=== PATIENT | female | born 1940 | race Hispanic/Latino ===

== ENCOUNTER 2017-06-16 14:10 | Inpatient (IN) | payer MEDICARE ==
[2017-06-16 14:10] VITALS: PULSE 58; BMI 33.5
--- NOTE | 2017-06-16 14:58 | ED PDOC ---
Lower Extremity Pain/Injury Time Seen by Provider: 06/16/17 14:17 Chief Complaint (Nursing): Lower Extremity Problem/Injury Chief Complaint (Provider): Left knee pain History Per: Patient History/Exam Limitations: no limitations Onset/Duration Of Symptoms: Persistent Current Symptoms Are (Timing): Still Present Additional Complaint(s): Mirtha Mcmanus is a 77-year-old female with a past medical history of bilateral total knee replacement surgeries, who presents to the emergency department complaining of persistent left knee pain. Patient had surgery to repair a left femur fracture at [place] in March (s/p mechanical fall) and was discharged from rehab a few days ago. Now complaining of continuous pain, not relieved with the dilaudid she was prescribed post-op. Denies any leg swelling, paresthesias, or weakness. PMD: Non-[facility] provider Past Medical History Reviewed: Historical Data, Nursing Documentation, Vital Signs Vital Signs: Last Vital Signs Temp 98.0 F 06/16/17 14:11 Pulse 87 06/16/17 14:11 Resp 16 06/16/17 14:11 BP 160/92 H 06/16/17 14:11 Pulse Ox 99 06/16/17 14:11 - Medical History PMH: Anemia, Anxiety, Atrial Fibrillation, Fractures (left femur s/p fall in March), HTN, Seizures ("mild seizures", takes lamictal) Denies: HIV, Chronic Kidney Disease - Surgical History Surgical History: Cholecystectomy Other surgeries: Left femur surgery 03/2017, Bilateral knee replacement - Family History Family History: States: Unknown Family Hx - Social History Current smoker - smoking cessation education provided: No Alcohol: None Drugs: Denies - Immunization History Hx Tetanus Toxoid Vaccination: No Hx Influenza Vaccination: No Hx Pneumococcal Vaccination: No - Home Medications Home Medications: Ambulatory Orders Medication Instructions Recorded Lorazepam [Ativan] 1 mg PO Q12 PRN 05/18/15 Docusate [Colace] 100 mg PO DAILY PRN 06/25/16 lamoTRIgine [Lamictal] 100 mg PO BID 06/25/16 Aluminum Hydroxide/Magnesium 30 ml PO Q6 PRN #0 udc 07/16/16 [Maalox Plus 30 ml] Amiodarone [Cordarone] 200 mg PO DAILY tab 07/16/16 Dabigatran [Pradaxa] 150 mg PO BID #60 cap 07/16/16 Ketorolac Tromethamine [Toradol] 10 mg PO Q6 PRN #0 tab 07/16/16 Acetaminophen [Tylenol 325mg tab] 650 mg PO Q6 PRN 07/19/16 Bisacodyl [Dulcolax] 10 mg PO DAILY 07/19/16 Magnesium Hydroxide [Milk Of 30 ml PO DAILY PRN 07/19/16 Magnesia] Ondansetron [Zofran Tab] 8 mg PO Q6 PRN 07/19/16 HYDROmorphone [Dilaudid] 2 mg PO Q4H PRN 06/16/17 Omeprazole 20 mg PO DAILY 06/16/17 Nystatin [Nystop Topical Powder] 1 applic TOP TID bottle 06/20/17 cefTRIAXone 1 gm [Rocephin 1 gram 1 gm IVPB DAILY #5 bag 06/20/17 IVPB] - Allergies Allergies/Adverse Reactions: Allergies Allergy/AdvReac Type Severity Reaction Status Date / Time No Known Allergies Allergy Verified 06/16/17 17:59 Review of Systems ROS Statement: Except As Marked, All Systems Reviewed And Found Negative Constitutional: Negative for: Fever, Chills Musculoskeletal: Positive for: Leg Pain (Left knee). Negative for: Other ( swelling) Neurological: Negative for: Weakness, Numbness (or paresthesias) Physical Exam - Reviewed Nursing Documentation Reviewed: Yes Vital Signs Reviewed: Yes - Physical Exam Appears: Positive for: Non-toxic, No Acute Distress Head Exam: Positive for: ATRAUMATIC, NORMOCEPHALIC Skin: Positive for: Normal Color, Warm, Dry Eye Exam: Positive for: EOMI, Normal appearance, PERRL Neck: Positive for: Normal, Painless ROM, Supple Cardiovascular/Chest: Positive for: Regular Rate, Rhythm. Negative for: Murmur Respiratory: Positive for: Normal Breath Sounds. Negative for: Accessory Muscle Use, Respiratory Distress Extremity: Positive for: Other (Chronically appearing large knee. Incisions are clean, dry, and intact. No erythema, induration, or crepitus. Decreased ROM secondary to pain.). Negative for: Normal ROM, Calf Tenderness, Swelling ( lower extremity edema) Neurologic/Psych: Positive for: Alert, Oriented. Negative for: Motor/Sensory Deficits - Laboratory Results Result Diagrams: 06/18/17 05:25 06/18/17 05:25 - ECG O2 Sat by Pulse Oximetry: 99 (RA) Pulse Ox Interpretation: Normal Medical Decision Making Medical Decision Making: Time: 14:39 Initial Impression: Knee pain s/p surgical procedure Initial Plan: * CMP * CBC w/ differential * PTT * Prothrombin time * Morphine 2 mg IV * Zofran 4 mg IV * X-Ray Left Knee * US Duplex lower extremity vein - Left * Reevaluation Time: 15:40 US Duplex LLE vein: Findings: There is normal flow, compressibility, and augmentation of the left common femoral, femoral, and popliteal veins. The left posterior tibial vein appears patent. Impression: No evidence of deep venous thrombosis in the left lower extremity. Time: 16:02 X-Ray Left Knee: FINDINGS: Examination limited by habitus. BONES: Postsurgical changes with intramedullary [place] and screw fixation of an age- indeterminate femoral fracture deformity. Osseous demineralization. Chronic appearing deformity of the proximal tibia. Rotated lateral view limits evaluation. JOINTS: No dislocation. JOINT EFFUSION: No significant joint effusion. OTHER FINDINGS: None. IMPRESSION: Rotated lateral view limits evaluation. Postsurgical changes with intramedullary [place] and screw fixation. Age indeterminate femoral fracture deformity identified; correlate clinically. Osseous demineralization. Chronic appearing deformity of the proximal tibia. Time: 16:03 Patient will be hospitalized for observation at Med/Surg for intractable knee pain. Discussed with Dr. Atif Alegria, who agrees with plan. Will order x-rays of left femur and left hip as well as CXR and EKG. Scribe Attestation: Documented by Alexa Cole, acting as a scribe for Gloria Rivas MD Provider Scribe Attestation: All medical record entries made by the Scribe were at my direction and personally dictated by me. I have reviewed the chart and agree that the record accurately reflects my personal performance of the history, physical exam, medical decision making, and the department course for this patient. I have also personally directed, reviewed, and agree with the discharge instructions and disposition. Disposition - Clinical Impression Clinical Impression: Intractable pain - Patient ED Disposition Is Patient to be Admitted: Yes Counseled Patient/Family Regarding: Studies Performed - Disposition Disposition Time: 16:02 Condition: STABLE - Pt Status Changed To: Hospital Disposition Of: Observation - POA Present On Arrival: None
[2017-06-16 15:17] LABS: BASO % 0.4 % (0.0-2.0); EOS # 0.1 K/uL (0.0-0.7); EOS % 1.4 % (0.0-4.0); HEMOGLOBIN 13.8 g/dL (12.0-16.0); LYMPH # 1.7 K/uL (1.0-4.3); LYMPH % 26.6 % (20.0-40.0); MEAN CELL VOLUME 93.1 fl (81.0-99.0); MEAN CORPUSCULAR HEMOGLOBIN 29.6 pg (27.0-31.0); MEAN CORPUSCULAR HGB CONC 31.8 g/dL (33.0-37.0); MEAN PLATELET VOLUME 8.1 fl (7.2-11.7); MONO # 0.4 K/uL (0.0-0.8); MONO % 6.9 % (0.0-10.0); NEUT % 64.7 % (50.0-75.0); NRBC % 0.3 % (0.0-0.0); RBC 4.66 Mil/uL (3.80-5.20); RED CELL DISTRIBUTION WIDTH 15.2 % (11.5-14.5); WHITE BLOOD COUNT 6.3 K/uL (4.8-10.8)
--- NOTE | 2017-06-16 15:42 | US ---
Left lower extremity Doppler ultrasound. Indication: LLE pain, s/p knee surgery Technique: Duplex ultrasound evaluation of the left lower extremity Comparison: Bilateral lower extremity Doppler ultrasound performed 07/12/16 Findings: There is normal flow, compressibility, and augmentation of the left common femoral, femoral, and popliteal veins. The left posterior tibial vein appears patent. Impression: No evidence of deep venous thrombosis in the left lower extremity.
--- NOTE | 2017-06-16 16:04 | RAD ---
PROCEDURE: Left Knee Radiographs. HISTORY: COMPARISON: Noncontrast left knee radiograph performed 06/08/16 FINDINGS: Examination limited by habitus. BONES: Postsurgical changes with intramedullary [place] and screw fixation of an age-indeterminate femoral fracture deformity. Osseous demineralization. Chronic appearing deformity of the proximal tibia. Rotated lateral view limits evaluation. JOINTS: No dislocation. JOINT EFFUSION: No significant joint effusion. OTHER FINDINGS: None. IMPRESSION: Rotated lateral view limits evaluation. Postsurgical changes with intramedullary [place] and screw fixation. Age indeterminate femoral fracture deformity identified; correlate clinically. Osseous demineralization. Chronic appearing deformity of the proximal tibia.
[2017-06-16 17:03] LABS: INR 1.5 (0.9-1.2); PARTIAL THROMBOPLASTIN TIME 56.8 Seconds (25.6-37.1)
[2017-06-16 17:10] LABS: ALB/GLOB RATIO 0.9 (1.0-2.1); ALBUMIN 3.7 g/dL (3.5-5.0); ALT/SGPT 39 U/L (9-52); AST/SGOT 25 U/L (14-36); BLOOD UREA NITROGEN 14 mg/dl (7-17); GFR AFRICAN-AMERICAN > 60; GFR NON-AFRICAN AMERICAN 54
[2017-06-16] MEDS: Sodium Chloride 0.9% 1,000 ML IV SCH (22:24)
[2017-06-16] MEDS: Docusate-Senna 50 mg-8.6 mg Tab PO SCH (22:27)
--- NOTE | 2017-06-17 01:59 | CP.PCM.HP ---
Past Patient History - Infectious Disease Hx of Infectious Diseases: None - Past Medical History & Family History Past Medical History?: Yes - Past Social History Smoking Status: Never Smoked - CARDIAC Hx Cardiac Disorders: Yes Hx Cardia Arrhythmia: Yes Hx Hypercholesterolemia: Yes Hx Hypertension: Yes - PULMONARY Hx Respiratory Disorders: No - NEUROLOGICAL Hx Neurological Disorder: Yes Hx Seizures: Yes - HEENT Hx HEENT Problems: No - RENAL Hx Chronic Kidney Disease: No - ENDOCRINE/METABOLIC Hx Endocrine Disorders: No - HEMATOLOGICAL/ONCOLOGICAL Hx Anemia: Yes Hx Human Immunodeficiency Virus (HIV): No - INTEGUMENTARY Hx Dermatological Problems: No - MUSCULOSKELETAL/RHEUMATOLOGICAL Hx Falls: Yes - GASTROINTESTINAL Hx Gastrointestinal Disorders: No - GENITOURINARY/GYNECOLOGICAL Hx Genitourinary Disorders: No - PSYCHIATRIC Hx Anxiety: Yes Hx Substance Use: No - SURGICAL HISTORY Hx Cholecystectomy: Yes - ANESTHESIA Hx Anesthesia: Yes Hx Anesthesia Reactions: No Hx Malignant Hyperthermia: No Meds Allergies/Adverse Reactions: Allergies Allergy/AdvReac Type Severity Reaction Status Date / Time No Known Allergies Allergy Verified 06/16/17 17:59 Results - Vital Signs Recent Vital Signs: Last Vital Signs Temp 97.8 F 06/16/17 23:37 Pulse 60 06/16/17 23:37 Resp 18 06/16/17 23:37 BP 135/67 06/16/17 23:37 Pulse Ox 96 06/16/17 23:37 - Labs Result Diagrams: 06/16/17 15:13 06/16/17 16:30 Labs: Laboratory Results - last 24 hr 06/16/17 06/16/17 06/16/17 15:13 16:30 16:30 WBC 6.3 RBC 4.66 Hgb 13.8 D Hct 43.3 MCV 93.1 D MCH 29.6 MCHC 31.8 L RDW 15.2 H Plt Count 166 MPV 8.1 Neut % (Auto) 64.7 Lymph % (Auto) 26.6 [place] % (Auto) 6.9 Eos % (Auto) 1.4 Baso % (Auto) 0.4 Neut # 4.0 Lymph # 1.7 [place] # 0.4 Eos # 0.1 Baso # 0.0 PT 17.0 H INR 1.5 H APTT 56.8 H Sodium 144 Potassium 3.9 Chloride 106 Carbon Dioxide 28 Anion Gap 14 BUN 14 Creatinine 1.0 Est GFR ( Amer) > 60 Est GFR (Non-Af Amer) 54 Random Glucose 85 Calcium 9.0 Total Bilirubin 0.5 AST 25 ALT 39 Alkaline Phosphatase 95 Total Protein 7.7 Albumin 3.7 Globulin 4.0 H Albumin/Globulin Ratio 0.9 L
[2017-06-17] MEDS: Pantoprazole 40 mg EC Tab PO SCH (08:37)
[2017-06-17] MEDS: Sodium Chloride 0.9% 1,000 ML IV SCH (09:12)
--- NOTE | 2017-06-17 09:16 | CP.PCM.CON ---
History of Present Illness - History of Present Illness History of Present Illness: orthopedic consultation Dr. Oconnor 77F complains of left leg pain after IM nailing left femur for fracture 03/2017 in [facility]. She was released from rehab a few days ago, and is still having a lot of pain and difficulty walking due to left leg pain. She says she has pain in her right knee now as well (s/p revision TKR 06/2016). Denies recent trauma/falls, says she is unable to get around She lives with 2 sons, has 3 steps into home. Review of Systems - Constitutional Additional comments: no fever/chills - Cardiovascular Additional comments: denies CP/SOB - Respiratory Additional comments: no SOB - Musculoskeletal Musculoskeletal: As Per HPI - Integumentary Additional comments: no drainage from wounds - Neurological Additional comments: denies numbness/tingling - Hematologic/Lymphatic Hematologic: absent: As Per HPI, Easy Bleeding, Easy Bruising, Lymphadenopathy, Other Past Patient History - Infectious Disease Hx of Infectious Diseases: None - Past Medical History & Family History Past Medical History?: Yes - Past Social History Smoking Status: Never Smoked - CARDIAC Hx Cardiac Disorders: Yes Hx Cardia Arrhythmia: Yes Hx Hypercholesterolemia: Yes Hx Hypertension: Yes - PULMONARY Hx Respiratory Disorders: No - NEUROLOGICAL Hx Neurological Disorder: Yes Hx Seizures: Yes - HEENT Hx HEENT Problems: No - RENAL Hx Chronic Kidney Disease: No - ENDOCRINE/METABOLIC Hx Endocrine Disorders: No - HEMATOLOGICAL/ONCOLOGICAL Hx Anemia: Yes Hx Human Immunodeficiency Virus (HIV): No - INTEGUMENTARY Hx Dermatological Problems: No - MUSCULOSKELETAL/RHEUMATOLOGICAL Hx Falls: Yes - GASTROINTESTINAL Hx Gastrointestinal Disorders: No - GENITOURINARY/GYNECOLOGICAL Hx Genitourinary Disorders: No - PSYCHIATRIC Hx Anxiety: Yes Hx Substance Use: No - SURGICAL HISTORY Hx Cholecystectomy: Yes - ANESTHESIA Hx Anesthesia: Yes Hx Anesthesia Reactions: No Hx Malignant Hyperthermia: No Meds Allergies/Adverse Reactions: Allergies Allergy/AdvReac Type Severity Reaction Status Date / Time No Known Allergies Allergy Verified 06/16/17 17:59 - Medications Medications: Current Medications Amiodarone HCl (Cordarone) 200 mg PO DAILY [facility] Last Admin: 06/17/17 08:36 Dose: 200 mg Dabigatran (Pradaxa) 150 mg PO BID [facility] PRN Reason: Protocol Last Admin: 06/17/17 08:36 Dose: 150 mg Hydromorphone HCl (Dilaudid) 1 mg IVP Q4 PRN PRN Reason: Pain, severe (8-10) Sodium Chloride (Sodium Chloride 0.9%) 1,000 mls @ 100 mls/hr IV .Q10H [facility] Stop: 06/17/17 21:52 Last Admin: 06/17/17 09:12 Dose: 100 mls/hr Ketorolac Tromethamine (Toradol) 15 mg IVP Q6 PRN PRN Reason: Pain, moderate (4-7) Last Admin: 06/17/17 06:27 Dose: 15 mg Lamotrigine (Lamictal) 100 mg PO BID [facility] Last Admin: 06/17/17 08:36 Dose: 100 mg Lorazepam (Ativan) 1 mg PO HS PRN PRN Reason: Anxiety Pantoprazole Sodium (Protonix Ec Tab) 40 mg PO DAILY [facility] Last Admin: 06/17/17 08:37 Dose: 40 mg Senna/Docusate Sodium (Senokot S 50 Mg-8.6 Mg) 2 tab PO HS [facility] Last Admin: 06/16/17 22:27 Dose: 2 tab Physical Exam - Constitutional Appears: Well, No Acute Distress - Head Exam Head Exam: ATRAUMATIC - Expanded Lower Extremities Exam Left Upper Leg exam: normal inspection (generalized TTP to thigh, knee ROM 0-50 degrees then complains of some pain, sensation intact, calves soft NT neg homans Bilaterally) Knee exam: normal inspection (R knee: ROM 4-100, able to extend passively to 0. sensation intact, no erythema, non tender, no effusion, incision well healed) Ankle exam: FULL ROM - Neurological Exam Neurological exam: Alert - Psychiatric Exam Psychiatric exam: Normal Affect, Normal Mood - Skin Skin Exam: Dry, Intact, Normal Color, Warm Additional comments: incision sites to LLE all dry, well healed, no erythema R TKR incision well healed Results - Vital Signs Recent Vital Signs: Last Vital Signs Temp 97.8 F 06/17/17 07:51 Pulse 80 06/17/17 08:36 Resp 20 06/17/17 07:51 BP 148/63 06/17/17 08:36 Pulse Ox 98 06/17/17 07:51 - Labs Result Diagrams: 06/16/17 15:13 06/16/17 16:30 Labs: Laboratory Results - last 24 hr 06/16/17 06/16/17 06/16/17 15:13 16:30 16:30 WBC 6.3 RBC 4.66 Hgb 13.8 D Hct 43.3 MCV 93.1 D MCH 29.6 MCHC 31.8 L RDW 15.2 H Plt Count 166 MPV 8.1 Neut % (Auto) 64.7 Lymph % (Auto) 26.6 [place] % (Auto) 6.9 Eos % (Auto) 1.4 Baso % (Auto) 0.4 Neut # 4.0 Lymph # 1.7 [place] # 0.4 Eos # 0.1 Baso # 0.0 PT 17.0 H INR 1.5 H APTT 56.8 H Sodium 144 Potassium 3.9 Chloride 106 Carbon Dioxide 28 Anion Gap 14 BUN 14 Creatinine 1.0 Est GFR ( Amer) > 60 Est GFR (Non-Af Amer) 54 Random Glucose 85 Calcium 9.0 Total Bilirubin 0.5 AST 25 ALT 39 Alkaline Phosphatase 95 Total Protein 7.7 Albumin 3.7 Globulin 4.0 H Albumin/Globulin Ratio 0.9 L Assessment & Plan (1) Status post closed fracture of left femur Assessment and Plan: 2 months s/p left femoral shaft fx IM nailing -knee immob, TTWB per Dr. oconnor -ct scan left femur -f/u xrays right knee -PT/OT -VTE proph, on pradaxa -d/c planning -d/w Dr. Oconnor, will review imaging Status: Acute
--- NOTE | 2017-06-17 10:46 | CARD ---
APPROVED REPORT EKG Measurement Heart [id number] <Conclusion> Normal sinus rhythm Right bundle branch block Abnormal ECG
--- NOTE | 2017-06-17 11:57 | RAD ---
PROCEDURE: CHEST RADIOGRAPH, 1 VIEW HISTORY: Admission COMPARISON: 07/19/2016 FINDINGS: LUNGS: Clear. PLEURA: No pneumothorax or pleural fluid seen. CARDIOVASCULAR: Large hiatal hernia. Mild cardiomegaly. No congestive change. OSSEOUS STRUCTURES: No significant abnormalities. VISUALIZED UPPER ABDOMEN: Normal. OTHER FINDINGS: None. IMPRESSION: No acute infiltrate. Hiatal hernia. Cardiomegaly.
--- NOTE | 2017-06-17 13:55 | RAD ---
PROCEDURE: Left hip HISTORY: Knee pain COMPARISON: None TECHNIQUE: Standard protocol for this study/examination. FINDINGS: Satisfactory position alignment of intramedullary [place] left femur incompletely visualize. Preserved femoral acetabular relationship. No acute findings IMPRESSION: No acute findings related to/accounting for the clinical presentation.
--- NOTE | 2017-06-17 14:03 | RAD ---
PROCEDURE: Left Femur Radiographs. HISTORY: Knee pain COMPARISON: None. TECHNIQUE: AP and Lateral Radiographs of the left femur. FINDINGS: FEMUR: Status post ORIF oblique distal femoral fracture. Intramedullary [place]. Near anatomic alignment. SOFT TISSUES: Normal. OTHER FINDINGS: None. IMPRESSION: ORIF oblique comminuted distal left femoral fracture.
--- NOTE | 2017-06-17 14:08 | RAD ---
PROCEDURE: Right Knee Radiographs. HISTORY: s/p TKR COMPARISON: 07/03/2016 FINDINGS: BONES: status post right TKR. No evidence of prosthesis loosening. No osseous fracture. Prosthesis grossly intact. JOINTS: As above JOINT EFFUSION: None. OTHER FINDINGS: None. IMPRESSION: Status post right TKR appear
--- NOTE | 2017-06-17 15:29 | CT ---
PROCEDURE: CT left lower extremity HISTORY: left femoral shaft fracture COMPARISON: Not available TECHNIQUE: 2.5 mm contiguous axial sections were acquired through the left femur, from the hip through the knee. Sagittal and coronal images were reformatted from the axial scan. FINDINGS: The patient is status post placement of an intramedullary [place] in the left femur. This is fixed proximally and distally with transverse screws. There is subacute comminuted fracture of the mid to distal left femoral diaphysis. There is minimal callus seen about this fracture. There is no involvement of any articular surface. There is tricompartmental osteoarthritis of the left knee. There are no articular erosions seen. There is no soft tissue mass or fluid collection. IMPRESSION: Subacute oblique comminuted left femoral fracture, status post internal fixation with intramedullary [place] and transverse screws. Minimal callus is seen about the fracture.
[2017-06-17] MEDS: Docusate-Senna 50 mg-8.6 mg Tab PO SCH (22:04)
--- NOTE | 2017-06-18 01:08 | CP.PCM.PN ---
Subjective - Date & Time of Evaluation Date of Evaluation: 06/17/17 Time of Evaluation: 20:30 Objective - Vital Signs/Intake and Output Vital Signs (last 24 hours): Temp Pulse Resp BP Pulse Ox 97.7 F 55 L 18 120/59 L 95 06/17/17 23:35 06/17/17 23:35 06/17/17 23:35 06/17/17 23:35 06/17/17 23:35 - Medications Medications: Current Medications Amiodarone HCl (Cordarone) 200 mg PO DAILY [facility] Last Admin: 06/17/17 08:36 Dose: 200 mg Dabigatran (Pradaxa) 150 mg PO BID [facility] PRN Reason: Protocol Last Admin: 06/17/17 16:14 Dose: 150 mg Hydromorphone HCl (Dilaudid) 1 mg IVP Q4 PRN PRN Reason: Pain, severe (8-10) Ketorolac Tromethamine (Toradol) 15 mg IVP Q6 PRN PRN Reason: Pain, moderate (4-7) Last Admin: 06/17/17 13:06 Dose: 15 mg Lamotrigine (Lamictal) 100 mg PO BID [facility] Last Admin: 06/17/17 16:13 Dose: 100 mg Lorazepam (Ativan) 1 mg PO HS PRN PRN Reason: Anxiety Nystatin (Nystop Topical Powder) 1 applic TOP TID [facility] Last Admin: 06/17/17 18:26 Dose: 1 appl Pantoprazole Sodium (Protonix Ec Tab) 40 mg PO DAILY [facility] Last Admin: 06/17/17 08:37 Dose: 40 mg Senna/Docusate Sodium (Senokot S 50 Mg-8.6 Mg) 2 tab PO HS [facility] Last Admin: 06/17/17 22:04 Dose: 2 tab - Labs Labs: 06/16/17 15:13 06/16/17 16:30 PT 17.0 Seconds (9.8-13.1) H 06/16/17 16:30 INR 1.5 (0.9-1.2) H 06/16/17 16:30 APTT 56.8 Seconds (25.6-37.1) H 06/16/17 16:30
[2017-06-18 04:42] LABS: SQUAMOUS EPITHIAL 3 /hpf (0-5); URINE BACTERIA OCC (<OCC); URINE BILIRUBIN NEGATIVE (NEGATIVE); URINE BLOOD MODERATE (NEGATIVE); URINE CLARITY CLOUDY (Clear); URINE COLOR YELLOW (YELLOW); URINE GLUCOSE (UA) NEG (Normal); URINE LEUKOCYTE ESTERASE LARGE Leu/uL (Negative); URINE NITRATE POSITIVE (NEGATIVE); URINE PROTEIN 30 mg/dL (NEGATIVE); URINE UROBILINOGEN 0.2-1.0 mg/dL (0.2-1.0)
[2017-06-18 07:44] LABS: BLOOD UREA NITROGEN 13 mg/dl (7-17); CALCIUM 8.4 mg/dL (8.4-10.2); GFR AFRICAN-AMERICAN > 60; GFR NON-AFRICAN AMERICAN > 60
[2017-06-18 07:52] LABS: MEAN CELL VOLUME 90.9 fl (81.0-99.0); MEAN CORPUSCULAR HEMOGLOBIN 29.8 pg (27.0-31.0); MEAN CORPUSCULAR HGB CONC 32.7 g/dL (33.0-37.0); RBC 3.95 Mil/uL (3.80-5.20); RED CELL DISTRIBUTION WIDTH 14.8 % (11.5-14.5); WHITE BLOOD COUNT 3.6 K/uL (4.8-10.8)
[2017-06-18 08:05] LABS: HEMOGLOBIN 11.8 g/dL (12.0-16.0)
[2017-06-18] MEDS: Pantoprazole 40 mg EC Tab PO SCH (08:51)
--- NOTE | 2017-06-18 10:19 | CP.PCM.PN ---
Subjective - Date & Time of Evaluation Date of Evaluation: 06/18/17 Time of Evaluation: 09:30 - Subjective Subjective: Patient still complaining of left leg and knee pain. No new complaints. Review of Systems - Review of Systems All systems: reviewed and no additional remarkable complaints except - Cardiovascular Cardiovascular: UNREMARKABLE - Respiratory Respiratory: UNREMARKABLE - Gastrointestinal Gastrointestinal: UNREMARKABLE - Musculoskeletal Musculoskeletal: As Par HPI - Neurological Neurological: As Per HPI Objective - Vital Signs/Intake and Output Vital Signs (last 24 hours): Temp Pulse Resp BP Pulse Ox 97.8 F 65 20 126/56 L 95 06/18/17 07:43 06/18/17 07:43 06/18/17 07:43 06/18/17 08:51 06/18/17 07:43 - Medications Medications: Current Medications Amiodarone HCl (Cordarone) 200 mg PO DAILY [facility] Last Admin: 06/18/17 08:51 Dose: 200 mg Dabigatran (Pradaxa) 150 mg PO BID [facility] PRN Reason: Protocol Last Admin: 06/18/17 08:50 Dose: 150 mg Hydromorphone HCl (Dilaudid) 1 mg IVP Q4 PRN PRN Reason: Pain, severe (8-10) Last Admin: 06/18/17 02:01 Dose: 1 mg Ceftriaxone Sodium 1 gm/ (Sodium Chloride) 100 mls @ 100 mls/hr IVPB DAILY [facility] PRN Reason: Protocol Last Admin: 06/18/17 09:48 Dose: 100 mls/hr Ketorolac Tromethamine (Toradol) 15 mg IVP Q6 PRN PRN Reason: Pain, moderate (4-7) Last Admin: 06/17/17 13:06 Dose: 15 mg Lamotrigine (Lamictal) 100 mg PO BID [facility] Last Admin: 06/18/17 08:50 Dose: 100 mg Lorazepam (Ativan) 1 mg PO HS PRN PRN Reason: Anxiety Nystatin (Nystop Topical Powder) 1 applic TOP TID [facility] Last Admin: 06/18/17 08:53 Dose: 1 appl Pantoprazole Sodium (Protonix Ec Tab) 40 mg PO DAILY [facility] Last Admin: 06/18/17 08:51 Dose: 40 mg Senna/Docusate Sodium (Senokot S 50 Mg-8.6 Mg) 2 tab PO HS [facility] Last Admin: 06/17/17 22:04 Dose: 2 tab - Labs Labs: 06/18/17 05:25 06/18/17 05:25 PT 17.0 Seconds (9.8-13.1) H 06/16/17 16:30 INR 1.5 (0.9-1.2) H 06/16/17 16:30 APTT 56.8 Seconds (25.6-37.1) H 06/16/17 16:30 - Constitutional Appears: Well, No Acute Distress - Head Exam Head Exam: ATRAUMATIC - Respiratory Exam Respiratory Exam: NORMAL BREATHING PATTERN - Extremities Exam Additional comments: calves soft NT neg homans - Neurological Exam Neurological Exam: Alert, Awake, Oriented x3 Neuro motor strength exam: Left Lower Extremity: 4 (+ROM ankle/toes,s ensation intct) - Psychiatric Exam Psychiatric exam: Normal Affect, Normal Mood - Skin Skin Exam: Dry, Intact, Normal Color, Warm Assessment and Plan (1) Status post closed fracture of left femur Assessment & Plan: 2 months s/p left femoral IM nail -only small amount of callus noted at this point -patient last saw surgeon from [place] just prior to d/c from rehab -patient has exhausted rehab benefit and must be discharged home -case d/w Dr. Oconnor, knee immobilizer, limit WB to LLE at this time -willl continue to monitor healing, advised patient that if fracture does not heal she may need additional surgery. Patient refuses any additional surgery at this time. -advised patient to f/u with surgeon from [place], as well as Dr. Oconnor -d/w Dr. Oconnor, agrees with above -patient to benefit from continued PT/OT at home, or as outpt if benefits do not allow Status: Acute Radiology Interpretation - Radiology Interpretation #2 Interpretation: atient Name / ID : YEMI MEYER / [id number] Exam Date : 06/17/2017 14:49:02 ( Approved ) Study Comment : Sex / Age : F / 77Y Creator : Shlomo Park MD Dictator : Shlomo Park MD Rehab Assistant : Slip Injector And Applicator : Shlomo Park MD Approver2 : Report Date : 06/17/2017 15:23:30 My Comment : PROCEDURE: CT left lower extremity HISTORY: left femoral shaft fracture COMPARISON: Not available TECHNIQUE: 2.5 mm contiguous axial sections were acquired through the left femur, from the hip through the knee. Sagittal and coronal images were reformatted from the axial scan. FINDINGS: The patient is status post placement of an intramedullary [place] in the left femur. This is fixed proximally and distally with transverse screws. There is subacute comminuted fracture of the mid to distal left femoral diaphysis. There is minimal callus seen about this fracture. There is no involvement of any articular surface. There is tricompartmental osteoarthritis of the left knee. There are no articular erosions seen. There is no soft tissue mass or fluid collection. IMPRESSION: Subacute oblique comminuted left femoral fracture, status post internal fixation with intramedullary [place] and transverse screws. Minimal callus is seen about the fracture. Patient Name / ID : YEMI MEYER / [id number] Exam Date : 06/17/2017 11:23:24 ( Approved ) Study Comment : Sex / Age : F / 77Y Creator : Shlomo Park MD Dictator : Shlomo Park MD Rehab Assistant : Slip Injector And Applicator : Shlomo Park MD Approver2 : Report Date : 06/17/2017 14:02:48 My Comment : PROCEDURE: Right Knee Radiographs. HISTORY: s/p TKR COMPARISON: 07/03/2016 FINDINGS: BONES: status post right TKR. No evidence of prosthesis loosening. No osseous fracture. Prosthesis grossly intact. JOINTS: As above JOINT EFFUSION: None. OTHER FINDINGS: None. IMPRESSION: Status post right TKR appear atient Name / ID : YEMI Galdamez [id number] Exam Date : 06/16/2017 17:37:57 ( Approved ) Study Comment : Sex / Age : F / 77Y Creator : Shlomo Park MD Dictator : Shlomo Park MD Rehab Assistant : Slip Injector And Applicator : Shlomo Park MD Approver2 : Report Date : 06/17/2017 14:01:28 My Comment : PROCEDURE: Left Femur Radiographs. HISTORY: Knee pain COMPARISON: None. TECHNIQUE: AP and Lateral Radiographs of the left femur. FINDINGS: FEMUR: Status post ORIF oblique distal femoral fracture. Intramedullary [place]. Near anatomic alignment. SOFT TISSUES: Normal. OTHER FINDINGS: None. IMPRESSION: ORIF oblique comminuted distal left femoral fracture. Patient Name / ID : YEMI Galdamez [id number] Exam Date : 06/16/2017 17:35:10 ( Approved ) Study Comment : Sex / Age : F / 77Y Creator : Jose Keller MD Dictator : Jose Keller MD Rehab Assistant : Slip Injector And Applicator : Jose Keller MD Approver2 : Report Date : 06/17/2017 13:53:57 My Comment : PROCEDURE: Left hip HISTORY: Knee pain COMPARISON: None TECHNIQUE: Standard protocol for this study/examination. FINDINGS: Satisfactory position alignment of intramedullary [place] left femur incompletely visualize. Preserved femoral acetabular relationship. No acute findings IMPRESSION: No acute findings related to/accounting for the clinical presentation.
[2017-06-18] MEDS: Docusate-Senna 50 mg-8.6 mg Tab PO SCH (21:03)
--- NOTE | 2017-06-18 22:51 | CP.PCM.PN ---
Subjective - Date & Time of Evaluation Date of Evaluation: 06/18/17 Time of Evaluation: 16:35 Objective - Vital Signs/Intake and Output Vital Signs (last 24 hours): Temp Pulse Resp BP Pulse Ox 98.1 F 53 L 20 117/57 L 95 06/18/17 16:16 06/18/17 16:16 06/18/17 16:16 06/18/17 16:16 06/18/17 16:16 - Medications Medications: Current Medications Amiodarone HCl (Cordarone) 200 mg PO DAILY [facility] Last Admin: 06/18/17 08:51 Dose: 200 mg Dabigatran (Pradaxa) 150 mg PO BID [facility] PRN Reason: Protocol Last Admin: 06/18/17 17:09 Dose: 150 mg Hydromorphone HCl (Dilaudid) 1 mg IVP Q4 PRN PRN Reason: Pain, severe (8-10) Last Admin: 06/18/17 02:01 Dose: 1 mg Ceftriaxone Sodium 1 gm/ (Sodium Chloride) 100 mls @ 100 mls/hr IVPB DAILY [facility] PRN Reason: Protocol Last Admin: 06/18/17 09:48 Dose: 100 mls/hr Ketorolac Tromethamine (Toradol) 15 mg IVP Q6 PRN PRN Reason: Pain, moderate (4-7) Last Admin: 06/17/17 13:06 Dose: 15 mg Lamotrigine (Lamictal) 100 mg PO BID [facility] Last Admin: 06/18/17 17:09 Dose: 100 mg Lorazepam (Ativan) 1 mg PO HS PRN PRN Reason: Anxiety Nystatin (Nystop Topical Powder) 1 applic TOP TID [facility] Last Admin: 06/18/17 17:09 Dose: 1 appl Pantoprazole Sodium (Protonix Ec Tab) 40 mg PO DAILY [facility] Last Admin: 06/18/17 08:51 Dose: 40 mg Senna/Docusate Sodium (Senokot S 50 Mg-8.6 Mg) 2 tab PO HS [facility] Last Admin: 06/18/17 21:03 Dose: 2 tab - Labs Labs: 06/18/17 05:25 06/18/17 05:25 PT 17.0 Seconds (9.8-13.1) H 06/16/17 16:30 INR 1.5 (0.9-1.2) H 06/16/17 16:30 APTT 56.8 Seconds (25.6-37.1) H 06/16/17 16:30
--- NOTE | 2017-06-19 08:44 | CP.PCM.PN ---
Subjective - Date & Time of Evaluation Date of Evaluation: 06/19/17 Time of Evaluation: 08:42 - Subjective Subjective: Patient still complaining of left knee/leg pain. No new complaints. Objective - Vital Signs/Intake and Output Vital Signs (last 24 hours): Temp Pulse Resp BP Pulse Ox 97.4 F L 60 18 155/68 H 94 L 06/19/17 07:56 06/19/17 07:56 06/19/17 07:56 06/19/17 07:56 06/19/17 07:56 - Medications Medications: Current Medications Amiodarone HCl (Cordarone) 200 mg PO DAILY [facility] Last Admin: 06/18/17 08:51 Dose: 200 mg Dabigatran (Pradaxa) 150 mg PO BID [facility] PRN Reason: Protocol Last Admin: 06/18/17 17:09 Dose: 150 mg Hydromorphone HCl (Dilaudid) 1 mg IVP Q4 PRN PRN Reason: Pain, severe (8-10) Last Admin: 06/18/17 02:01 Dose: 1 mg Ceftriaxone Sodium 1 gm/ (Sodium Chloride) 100 mls @ 100 mls/hr IVPB DAILY [facility] PRN Reason: Protocol Last Admin: 06/18/17 09:48 Dose: 100 mls/hr Ketorolac Tromethamine (Toradol) 15 mg IVP Q6 PRN PRN Reason: Pain, moderate (4-7) Last Admin: 06/17/17 13:06 Dose: 15 mg Lamotrigine (Lamictal) 100 mg PO BID [facility] Last Admin: 06/18/17 17:09 Dose: 100 mg Lorazepam (Ativan) 1 mg PO HS PRN PRN Reason: Anxiety Nystatin (Nystop Topical Powder) 1 applic TOP TID [facility] Last Admin: 06/18/17 17:09 Dose: 1 appl Pantoprazole Sodium (Protonix Ec Tab) 40 mg PO DAILY [facility] Last Admin: 06/18/17 08:51 Dose: 40 mg Senna/Docusate Sodium (Senokot S 50 Mg-8.6 Mg) 2 tab PO HS [facility] Last Admin: 06/18/17 21:03 Dose: 2 tab - Labs Labs: 06/18/17 05:25 06/18/17 05:25 PT 17.0 Seconds (9.8-13.1) H 06/16/17 16:30 INR 1.5 (0.9-1.2) H 06/16/17 16:30 APTT 56.8 Seconds (25.6-37.1) H 06/16/17 16:30 - Extremities Exam Additional comments: LLE: knee immob intact, +ROM ankle/toes, sensation intact calves soft NT neg homans Assessment and Plan (1) Status post closed fracture of left femur Assessment & Plan: s/p left femoral nailing knee immobilizer TTWB LLE per Dr. Oconnor PT eval appreciated VTE proph orthopedically stable d/w Dr. Oconnor, agrees with above Status: Acute
[2017-06-19] MEDS: Pantoprazole 40 mg EC Tab PO SCH (08:49)
[2017-06-19] MEDS: Docusate-Senna 50 mg-8.6 mg Tab PO SCH (21:29)
[2017-06-20] MEDS: Pantoprazole 40 mg EC Tab PO SCH (09:04)
--- NOTE | 2017-06-20 09:12 | CP.PCM.PN ---
Subjective - Date & Time of Evaluation Date of Evaluation: 06/20/17 Time of Evaluation: 09:09 - Subjective Subjective: Patient states she still has some knee and leg pain. No new complaints. Objective - Vital Signs/Intake and Output Vital Signs (last 24 hours): Temp Pulse Resp BP Pulse Ox 97.9 F 58 L 20 158/73 H 96 06/20/17 08:44 06/20/17 09:02 06/20/17 08:44 06/20/17 09:02 06/20/17 08:44 - Medications Medications: Current Medications Amiodarone HCl (Cordarone) 200 mg PO DAILY [facility] Last Admin: 06/20/17 09:02 Dose: 200 mg Dabigatran (Pradaxa) 150 mg PO BID [facility] PRN Reason: Protocol Last Admin: 06/20/17 09:04 Dose: 150 mg Hydromorphone HCl (Dilaudid) 1 mg IVP Q4 PRN PRN Reason: Pain, severe (8-10) Last Admin: 06/18/17 02:01 Dose: 1 mg Ceftriaxone Sodium 1 gm/ (Sodium Chloride) 100 mls @ 100 mls/hr IVPB DAILY [facility] PRN Reason: Protocol Last Admin: 06/20/17 09:06 Dose: 100 mls/hr Ketorolac Tromethamine (Toradol) 15 mg IVP Q6 PRN PRN Reason: Pain, moderate (4-7) Last Admin: 06/17/17 13:06 Dose: 15 mg Lamotrigine (Lamictal) 100 mg PO BID [facility] Last Admin: 06/20/17 09:03 Dose: 100 mg Lorazepam (Ativan) 1 mg PO HS PRN PRN Reason: Anxiety Nystatin (Nystop Topical Powder) 1 applic TOP TID [facility] Last Admin: 06/20/17 09:04 Dose: 1 appl Pantoprazole Sodium (Protonix Ec Tab) 40 mg PO DAILY [facility] Last Admin: 06/20/17 09:04 Dose: 40 mg Senna/Docusate Sodium (Senokot S 50 Mg-8.6 Mg) 2 tab PO HS [facility] Last Admin: 06/19/17 21:29 Dose: 2 tab - Labs Labs: 06/18/17 05:25 06/18/17 05:25 PT 17.0 Seconds (9.8-13.1) H 06/16/17 16:30 INR 1.5 (0.9-1.2) H 06/16/17 16:30 APTT 56.8 Seconds (25.6-37.1) H 06/16/17 16:30 - Extremities Exam Additional comments: LLE: knee immobilizer adjusted, +ROM ankle/toes, sensation intact, +DP pulse, calves soft NT neg homans Assessment and Plan (1) Status post closed fracture of left femur Assessment & Plan: s/p left femur IM nailing TTWB knee immob per Dr. Oconnor no orthopedic intervention planned at this time, but patient instructed she needs close follow up and to call Dr. Oconnor as well as ortho surgeon at [facility] for follow up appointments in approx 7-10 days cont PT/OT/VTE proph d/w Dr. Oconnor, agrees with above Status: Acute
[2017-06-20 16:49] VITALS: BP 149/61; PULSE 66; RESP 19; TEMP 98; O2SAT 95
--- NOTE | 2017-06-20 18:25 | CP.PCM.PN ---
Subjective - Date & Time of Evaluation Date of Evaluation: 06/19/17 Time of Evaluation: 18:45 Objective - Vital Signs/Intake and Output Vital Signs (last 24 hours): Temp Pulse Resp BP Pulse Ox 98 F 66 19 149/61 95 06/20/17 16:49 06/20/17 16:49 06/20/17 16:49 06/20/17 16:49 06/20/17 16:49 - Labs Labs: 06/18/17 05:25 06/18/17 05:25 PT 17.0 Seconds (9.8-13.1) H 06/16/17 16:30 INR 1.5 (0.9-1.2) H 06/16/17 16:30 APTT 56.8 Seconds (25.6-37.1) H 06/16/17 16:30
--- NOTE | 2017-06-20 18:26 | CP.PCM.DIS ---
Provider - Provider Date of Admission: 06/17/17 12:11 Attending physician: Atif Alegria MD Time Spent in preparation of Discharge (in minutes): 25 Hospital Course - Lab Results Lab Results: Micro Results 06/17/17 15:20 Blood Blood Culture - Preliminary NO GROWTH AFTER 3 DAYS 06/18/17 04:30 Urine,Clean Catch Urine Culture - Preliminary Gram Negative Will Most Recent Lab Values WBC 3.6 K/uL (4.8-10.8) L 06/18/17 05:25 RBC 3.95 Mil/uL (3.80-5.20) 06/18/17 05:25 Hgb 11.8 g/dL (12.0-16.0) L D 06/18/17 05:25 Hct 35.9 % (34.0-47.0) 06/18/17 05:25 MCV 90.9 fl (81.0-99.0) D 06/18/17 05:25 MCH 29.8 pg (27.0-31.0) 06/18/17 05:25 MCHC 32.7 g/dL (33.0-37.0) L 06/18/17 05:25 RDW 14.8 % (11.5-14.5) H 06/18/17 05:25 Plt Count 140 K/uL (130-400) 06/18/17 05:25 MPV 8.1 fl (7.2-11.7) 06/16/17 15:13 Neut % (Auto) 64.7 % (50.0-75.0) 06/16/17 15:13 Lymph % (Auto) 26.6 % (20.0-40.0) 06/16/17 15:13 [place] % (Auto) 6.9 % (0.0-10.0) 06/16/17 15:13 Eos % (Auto) 1.4 % (0.0-4.0) 06/16/17 15:13 Baso % (Auto) 0.4 % (0.0-2.0) 06/16/17 15:13 Neut # 4.0 K/uL (1.8-7.0) 06/16/17 15:13 Lymph # 1.7 K/uL (1.0-4.3) 06/16/17 15:13 [place] # 0.4 K/uL (0.0-0.8) 06/16/17 15:13 Eos # 0.1 K/uL (0.0-0.7) 06/16/17 15:13 Baso # 0.0 K/uL (0.0-0.2) 06/16/17 15:13 PT 17.0 Seconds (9.8-13.1) H 06/16/17 16:30 INR 1.5 (0.9-1.2) H 06/16/17 16:30 APTT 56.8 Seconds (25.6-37.1) H 06/16/17 16:30 Sodium 144 mmol/l (132-148) 06/18/17 05:25 Potassium 3.9 MMOL/L (3.6-5.0) 06/18/17 05:25 Chloride 110 mmol/L (98-107) H 06/18/17 05:25 Carbon Dioxide 26 mmol/L (22-30) 06/18/17 05:25 Anion Gap 12 (10-20) 06/18/17 05:25 BUN 13 mg/dl (7-17) 06/18/17 05:25 Creatinine 0.9 mg/dl (0.7-1.2) 06/18/17 05:25 Est GFR ( Amer) > 60 06/18/17 05:25 Est GFR (Non-Af Amer) > 60 06/18/17 05:25 Random Glucose 80 mg/dL (65-105) 06/18/17 05:25 Calcium 8.4 mg/dL (8.4-10.2) 06/18/17 05:25 Total Bilirubin 0.5 mg/dl (0.2-1.3) 06/16/17 16:30 AST 25 U/L (14-36) 06/16/17 16:30 ALT 39 U/L (9-52) 06/16/17 16:30 Alkaline Phosphatase 95 U/L (38-126) 06/16/17 16:30 Total Protein 7.7 G/DL (6.3-8.2) 06/16/17 16:30 Albumin 3.7 g/dL (3.5-5.0) 06/16/17 16:30 Globulin 4.0 gm/dL (2.2-3.9) H 06/16/17 16:30 Albumin/Globulin Ratio 0.9 (1.0-2.1) L 06/16/17 16:30 Urine Color Yellow (YELLOW) 06/18/17 04:30 Urine Clarity Cloudy (Clear) 06/18/17 04:30 Urine pH 6.0 (5.0-8.0) 06/18/17 04:30 Ur Specific [place] 1.008 (1.003-1.030) 06/18/17 04:30 Urine Protein 30 mg/dL (NEGATIVE) 06/18/17 04:30 Urine Glucose (UA) Neg mg/dL (Normal) 06/18/17 04:30 Urine Ketones Negative mg/dL (NEGATIVE) 06/18/17 04:30 Urine Blood Moderate (NEGATIVE) 06/18/17 04:30 Urine Nitrate Positive (NEGATIVE) H 06/18/17 04:30 Urine Bilirubin Negative (NEGATIVE) 06/18/17 04:30 Urine Urobilinogen 0.2-1.0 mg/dL (0.2-1.0) 06/18/17 04:30 Ur Leukocyte Esterase Large Vianca/uL (Negative) 06/18/17 04:30 Urine RBC (Auto) 65 /hpf (0-3) H 06/18/17 04:30 Urine Microscopic WBC 159 /hpf (0-5) H 06/18/17 04:30 Ur Squamous Epith Cells 3 /hpf (0-5) 06/18/17 04:30 Urine Bacteria Occ (<OCC) H 06/18/17 04:30 Urine Yeast (Budding) Few /hpf (NEGATIVE) H 06/18/17 04:30 Discharge Exam - Head Exam Head Exam: ATRAUMATIC, NORMOCEPHALIC Discharge Plan - Discharge Medications Prescriptions: cefTRIAXone 1 gm [Rocephin 1 gram IVPB] 1 gm IVPB DAILY #5 bag - Follow Up Plan Condition: STABLE Disposition: REHAB FACILITY/REHAB UNIT
--- NOTE | 2017-06-23 09:18 | PQF GENQUE ---
This form is a permanent part of the medical record DR. SHARPE SEMAN: COULD YOU PLEASE CLARIFY THE PRINCIPAL DIAGNOSIS. H&P, NOTES, & D/C SUMMARY IN DRAFT AND NO DIAGNOSIS. Clarification of your documentation is requested to better reflect the severity of illness and intensity of treatment of your patient. Indicators present [] Specify: [] [] Specify: [] [] Specify: [] [] Specify: [] Location in the medical record that reflects the above clinical findings: [] Treatment Provided: [] PHYSICIAN'S RESPONSE Based on your medical judgment of the clinical indicators outlined above please clarify the following: [] Practitioner response [] If unable to determine, please check the box, sign and date. Present On Admission (POA) Indicator: [] Present at the time of admission [] Not present at the time of admission [] Clinically Undetermined In responding to this query, please exercise your independent professional judgment. The fact that a question is asked does not imply that any particular answer is desired or expected. Thank you for your clarification on this documentation. If you have any questions please call:[ ] * Thank you, * KAYLA BILLY [ [phone] [employer] [place]
== END 2017-06-20 16:25 | DRG 556 ==
LOC: H.ER 14:10 → INTOOBSV 16:02 → H.ERHOLD 16:02 → H.MEDSURG1 18:25 → OBSVTOIN 06-17 12:11
PROVIDERS: ADMIT Internal Medicine; ATTEND Internal Medicine
DX: M25.562 Pain in left knee (principal); I48.91 Unspecified atrial fibrillation; R56.9 Unspecified convulsions; S72.302 Unspecified fracture of shaft of left femur; D64.9 Anemia, unspecified; E78.00 Pure hypercholesterolemia, unspecified; X58.XXXD Exposure to other specified factors, subsequent encounter; I10 Essential (primary) hypertension; Z79.01 Long term (current) use of anticoagulants; Z79.899 Other long term (current) drug therapy; Z90.49 Acquired absence of other specified parts of digestive tract; Z91.81 History of falling; Z96.653 Presence of artificial knee joint, bilateral; F41.9 Anxiety disorder, unspecified; M25.561 Pain in right knee; M79.605 Pain in left leg; R26.2 Difficulty in walking, not elsewhere classified

== ENCOUNTER 2018-01-11 10:28 | Inpatient (IN) | payer MEDICARE ==
[2018-01-11 10:28] VITALS: PULSE 58
[2018-01-11 10:31] VITALS: BMI 25.0
[2018-01-11] MEDS ORDERED: Sodium Chloride 0.9% 500 ML IV ONE (11:15)
--- NOTE | 2018-01-11 11:26 | ED PDOC ---
Syncope/Near Syncope/Dizziness Time Seen by Provider: 01/11/18 11:05 Chief Complaint (Nursing): Headache Chief Complaint (Provider): weakness History Per: Patient, Family Onset/Duration Of Symptoms: Days Current Symptoms Are (Timing): Still Present Additional Complaint(s): Mirtha Mcmanus is a 77 year old female with a past medical history of hypertension, hypercholesterolemia, and atrial fibrillation, who was brought to the ED by son for evaluation of persistent and progressive weakness and fatigue associated with difficulty arousing patient, onset 8 days ago. As per son, symptoms worsened today culminating in son bringing her in for evaluation. Son reports a mild decrease in appetite and noted 1 day last week, patient experienced questionable dark stool (blood in stool). Patient also describes waxing and waning dizziness and lightheadedness which makes her feel like she is going to pass out but has not lost consciousness. Patient is now unable to move herself and is mostly bed bound which increases difficulty of bringing patient to medical appointments. Friday (5 days ago) patient had eye surgery but appears to be doing okay. She complains of shortness of breath which worsens with exertions. --pt positive for dizziness/lightheadedness, but no LOC --pt positive for SOB/chills/fatigue --pt denied nausea/vomiting/sweats/abdominal pain --pt denied cough/chest pain/palpitations --pt denied fall/trauma/sick contact, no travel --pt is here for further eval --no other complaints noted PCP: Tevin Chino pt lives with her son pt is right hand dominate Past Medical History Reviewed: Historical Data, Nursing Documentation, Vital Signs Vital Signs: Last Vital Signs Temp 97.9 F 01/11/18 10:30 Pulse 78 01/11/18 10:30 Resp 16 01/11/18 10:30 BP 147/78 01/11/18 10:30 Pulse Ox 98 01/11/18 10:30 - Medical History PMH: Anemia, Anxiety, Atrial Fibrillation, Cardia Arrhythmia, Fractures (left femur s/p fall in March), HTN, Hypercholesterolemia, Seizures ("mild seizures ", takes lamictal) Denies: HIV, Chronic Kidney Disease - Surgical History Surgical History: Cholecystectomy Other surgeries: left hip replacement Dr. Oconnor complications (chronic) - Family History Family History: States: Unknown Family Hx - Living Arrangements Living Arrangements: With Family (son) - Social History Current smoker - smoking cessation education provided: No Alcohol: None Drugs: Denies - Immunization History Hx Tetanus Toxoid Vaccination: No Hx Influenza Vaccination: No Hx Pneumococcal Vaccination: No - Home Medications Home Medications: Ambulatory Orders Medication Instructions Recorded Lorazepam [Ativan] 1 mg PO Q12 PRN 05/18/15 lamoTRIgine [Lamictal] 100 mg PO BID 06/25/16 Dabigatran [Pradaxa] 150 mg PO BID #60 cap 07/16/16 Acetaminophen [Tylenol 325mg tab] 650 mg PO Q6 PRN 07/19/16 - Allergies Allergies/Adverse Reactions: Allergies Allergy/AdvReac Type Severity Reaction Status Date / Time No Known Allergies Allergy Verified 01/11/18 10:40 Review of Systems ROS Statement: Except As Marked, All Systems Reviewed And Found Negative Constitutional: Positive for: Chills. Negative for: Fever, Sweats Cardiovascular: Negative for: Chest Pain, Palpitations Respiratory: Positive for: Shortness of Breath. Negative for: Cough Gastrointestinal: Negative for: Nausea, Vomiting, Abdominal Pain Genitourinary Female: Negative for: Dysuria Musculoskeletal: Negative for: Neck Pain, Back Pain, Foot Pain Skin: Negative for: Rash Neurological: Positive for: Dizziness, Other (lightheadedness) Physical Exam - Reviewed Nursing Documentation Reviewed: Yes Vital Signs Reviewed: Yes (mildly elevated BP) - Physical Exam Appears: Positive for: Well (alert/awake, GCS = 15, oriented x 2 (not to date/ time), cooperative, NAD), Non-toxic, No Acute Distress (alert, awake, appears fatigued sleepy but cooperative ) Head Exam: Positive for: ATRAUMATIC, NORMAL INSPECTION ((+) mild bitemporal atrophy), NORMOCEPHALIC Skin: Positive for: Normal Color (capillary refill ~ 1 second, no ulcer or petechiae; no gross pallor noted), Warm, Dry. Negative for: Pallor, Rash Eye Exam: Positive for: Normal appearance, EOMI, PERRL, Other (visual field intact b/l; no photophobia). Negative for: Nystagmus ENT: Positive for: Normal ENT Inspection, Pharynx Is (clear), Other (Poor Dentition, dry oral mucosa and no voice changes or coarseness noted; uvula/ tongue are midline) Neck: Positive for: Normal, Painless ROM, Supple, Trachea Midline. Negative for : Decreased ROM Cardiovascular/Chest: Positive for: Regular Rate, Rhythm, Other (+S1, +S2, no m/ r/r). Negative for: Murmur Respiratory: Positive for: Normal Breath Sounds, Other (CTA b/l, no w/r/r, no accessory muscle use noted, no tachypenia). Negative for: Accessory Muscle Use , Rales, Rhonchi, Stridor, Wheezing, Respiratory Distress Pulses-Carotid (L): 2+ Pulses-Carotid (R): 2+ Gastrointestinal/Abdominal: Positive for: Normal Exam, Bowel Sounds, Soft, Other (well nourished female, no focal tenderness, no masses/rebound/guarding/ rigidity, no rain's sign, no mcburney's point tenderness). Negative for: Tenderness, Mass, Distended, Guarding, Rebound Back: Positive for: Normal Inspection. Negative for: L CVA Tenderness, R CVA Tenderness, Vertebral Tenderness Extremity: Positive for: Capillary Refill (neurovascularly intact bilaterally, normal), Other (left leg shortened compared to right with decreased ROM of left leg(as per son, chronic) 5-/5 left leg strength; neurovasc intact b/l). Negative for: Pedal Edema, Swelling Neurologic/Psych: Positive for: Alert, oracle architect II-XII (normal), Oriented (x2 (not to date an time)), Other (follows commands with ease). Negative for: Facial Droop - Laboratory Results Result Diagrams: 01/11/18 11:20 01/11/18 11:20 Interpretation Of Abn Labs: + TROP. + elevated TSH. + RBC in urine - ECG ECG: Positive for: Interpreted By Me, Viewed By Me Interpretation Of Abn EKG: NSR at 60 bpm, normal axis, no ectopy, RBBB, inverted T in leads III/R/V1-3, no st changes, ABNL EKG; unchanged compare with old ekg 06/2017 O2 Sat by Pulse Oximetry: 98 (RA) Pulse Ox Interpretation: Normal - Radiology X-Ray: Interpreted by Me, Viewed By Me, Read By Radiologist - Progress ED Course And Treament: with elevated trop, pt's AMS with near syncope-like symptoms, abnl TSH levels, will recommend patient for admission 1:00pm - pt/son are doing well currently, NAD, + comfortable pt denied chest pain; pt denied sob currently made family/patient aware of pt's medical results agrees with admission 1:55pm - I spoke to Dr Al, refrigeration engine operator PCP, made aware, agrees with admission Date of service: 01/11/2018 PROCEDURE: CT HEAD WITHOUT CONTRAST. HISTORY: altered mental status COMPARISON: CT head dated 07/19/2016. TECHNIQUE: Axial computed tomography images were obtained through the head/brain without intravenous contrast. Radiation dose: Total exam DLP = 778.9 mGy-cm. This CT exam was performed using one or more of the following dose reduction techniques: Automated exposure control, adjustment of the mA and/or kV according to patient size, and/or use of iterative reconstruction technique. FINDINGS: HEMORRHAGE: No intracranial hemorrhage. BRAIN: No mass effect or edema. Atrophy. Chronic microvascular ischemic changes. Right basal ganglia lacunar infarction. VENTRICLES: Prominent. No hydrocephalus. CALVARIUM: Unremarkable. PARANASAL SINUSES: Left maxillary sinus mucosal thickening. MASTOID AIR CELLS: Unremarkable as visualized. No inflammatory changes. OTHER FINDINGS: None. IMPRESSION: No acute intracranial pathology. Age-related changes. No significant interval change. Date of service: 01/11/2018 HISTORY: sob, dizziness COMPARISON: Chest radiograph dated 06/16/2017. FINDINGS: LUNGS: No active pulmonary disease. PLEURA: No significant pleural effusion identified, no pneumothorax apparent. CARDIOVASCULAR: Sclerotic aortic calcifications. Cardiomediastinal silhouette stably enlarged. OSSEOUS STRUCTURES: Chronic deformity of the left humeral head. Unchanged. VISUALIZED UPPER ABDOMEN: Normal. OTHER FINDINGS: Large hiatal hernia. IMPRESSION: No active disease. Re-evaluation Time: 13:55 Condition: Re-examined, Improved - Physician Consult Information Time Consulting Physican Contacted: 13:55 Physician Contacted: Felice Al - Critical Care Total Time (In Min): 35 Comments: critical care time: 35min, excluding procedure time, excluding time teaching residents/students/mid-level providers; including initial eval/diagnosis, diagnostic interpretation, re-eval, consultations, final disposition Notes:: Orders: --CT Head --EKG --Ammonia --B-Type Natriuretic Peptide --CMP --Magnesium --Phosphorous --Thyroid Stimulating Hormone --Troponin --CBC --Coag --Chest X-Ray --Glucose, POC --Urinalysis Medical Decision Making Medical Decision Making: Time:11:07 Assessment/Differential Diagnosis: I have considered all the differential diagnosis regarding pt's chief medical complaints/clinical findings, including but are not limited to: Altered Mental Status (unspecified), electrolyte abnormalities, CVA vs TIA, cardiac pathology Plan: - labs - ct - ekg - xray - supportive care - observe Scribe Attestation: Documented by Susana Banks, acting as a scribe for John Paul Rush MD. Provider Scribe Attestation: All medical record entries made by the Scribe were at my direction and personally dictated by me. I have reviewed the chart and agree that the record accurately reflects my personal performance of the history, physical exam, medical decision making, and the department course for this patient. I have also personally directed, reviewed, and agree with the discharge instructions and disposition. Disposition - Clinical Impression Clinical Impression: Thyroid disorder, Altered mental status, unspecified, Near syncope, Dizziness, Elevated troponin, Dehydration - Patient ED Disposition Is Patient to be Admitted: Yes Counseled Patient/Family Regarding: Studies Performed, Diagnosis, Need For Followup, Rx Given - Disposition Disposition Time: 13:55 Condition: STABLE Forms: [facility] (Austrian) Print Language: CANADIAN - Pt Status Changed To: Hospital Disposition Of: Inpatient - Admit Certification Admit to Inpatient:: After my assessment, the patient will require hospitalization for at least two midnights. This is because of the severity of symptoms shown, intensity of services needed, and/or the medical risk in this patient being treated as an outpatient.
[2018-01-11 11:35] LABS: BASO % 0.8 % (0.0-2.0); EOS % 0.7 % (0.0-4.0); HEMOGLOBIN 13.4 g/dL (12.0-16.0); LYMPH # 1.5 K/uL (1.0-4.3); LYMPH % 29.3 % (20.0-40.0); MEAN CELL VOLUME 90.7 fl (81.0-99.0); MEAN CORPUSCULAR HEMOGLOBIN 30.1 pg (27.0-31.0); MEAN CORPUSCULAR HGB CONC 33.2 g/dL (33.0-37.0); MEAN PLATELET VOLUME 8.8 fl (7.2-11.7); MONO # 0.4 K/uL (0.0-0.8); MONO % 7.6 % (0.0-10.0); NEUT # 3.2 K/uL (1.8-7.0); NEUT % 61.6 % (50.0-75.0); RBC 4.45 Mil/uL (3.80-5.20); RED CELL DISTRIBUTION WIDTH 14.3 % (11.5-14.5); WHITE BLOOD COUNT 5.2 K/uL (4.8-10.8)
[2018-01-11 11:45] LABS: ALBUMIN 4.3 g/dL (3.5-5.0); CALCIUM 9.5 mg/dL (8.4-10.2)
--- NOTE | 2018-01-11 11:45 | RAD ---
Date of service: 01/11/2018 HISTORY: sob, dizziness COMPARISON: Chest radiograph dated 06/16/2017. FINDINGS: LUNGS: No active pulmonary disease. PLEURA: No significant pleural effusion identified, no pneumothorax apparent. CARDIOVASCULAR: Sclerotic aortic calcifications. Cardiomediastinal silhouette stably enlarged. OSSEOUS STRUCTURES: Chronic deformity of the left humeral head. Unchanged. VISUALIZED UPPER ABDOMEN: Normal. OTHER FINDINGS: Large hiatal hernia. IMPRESSION: No active disease.
[2018-01-11 11:48] LABS: INR 1.2 (0.9-1.2); PARTIAL THROMBOPLASTIN TIME 30.5 Seconds (25.6-37.1); PROTHROMBIN TIME 13.5 Seconds (9.8-13.1)
--- NOTE | 2018-01-11 13:02 | CT ---
Date of service: 01/11/2018 PROCEDURE: CT HEAD WITHOUT CONTRAST. HISTORY: altered mental status COMPARISON: CT head dated 07/19/2016. TECHNIQUE: Axial computed tomography images were obtained through the head/brain without intravenous contrast. Radiation dose: Total exam DLP = 778.9 mGy-cm. This CT exam was performed using one or more of the following dose reduction techniques: Automated exposure control, adjustment of the mA and/or kV according to patient size, and/or use of iterative reconstruction technique. FINDINGS: HEMORRHAGE: No intracranial hemorrhage. BRAIN: No mass effect or edema. Atrophy. Chronic microvascular ischemic changes. Right basal ganglia lacunar infarction. VENTRICLES: Prominent. No hydrocephalus. CALVARIUM: Unremarkable. PARANASAL SINUSES: Left maxillary sinus mucosal thickening. MASTOID AIR CELLS: Unremarkable as visualized. No inflammatory changes. OTHER FINDINGS: None. IMPRESSION: No acute intracranial pathology. Age-related changes. No significant interval change.
[2018-01-11 13:24] LABS: TROPONIN I 0.276 ng/mL (0.00-0.120)
[2018-01-11 14:12] LABS: SQUAMOUS EPITHIAL 1 /hpf (0-5); URINE BACTERIA RARE (<OCC); URINE BILIRUBIN NEGATIVE (NEGATIVE); URINE BLOOD LARGE (NEGATIVE); URINE CLARITY SLIGHTY-CLOUDY (Clear); URINE COLOR YELLOW (YELLOW); URINE GLUCOSE (UA) NEG (Normal); URINE LEUKOCYTE ESTERASE SMALL Leu/uL (Negative); URINE PROTEIN NEGATIVE (NEGATIVE); URINE UROBILINOGEN 0.2-1.0 mg/dL (0.2-1.0)
[2018-01-12] MEDS: Apap-Butalbital-Caffeine 325-50-40mg Tab PO PRN ×2 (03:19→12:22)
[2018-01-12] MEDS ORDERED: Dextrose 5%/0.9% NS 1,000 ML IV SCH ×2 (04:00→16:36)
[2018-01-12] MEDS ORDERED: Apap-Butalbital-Caffeine 325-50-40mg Tab PO SCH (04:00)
[2018-01-12] MEDS ORDERED: Pneumococcal 23-Valent Vaccine IM ONE (08:22)
[2018-01-12] MEDS: Aspirin 325 mg EC Tablets PO SCH (12:23)
[2018-01-12] MEDS ORDERED: Dexamethasone 10 MG in Sodium Chloride 0.9% 50 ML IVPB STA (12:35)
[2018-01-12] MEDS ORDERED: Magnesium Sulfate 1 GM in Dextrose 5% In Water 100 ML IVPB SCH (13:00)
--- NOTE | 2018-01-12 13:02 | CP.PCM.CON ---
History of Present Illness - History of Present Illness History of Present Illness: Neurology Consultation Note: Mrs. Mcmanus is a 77-year-old woman with a past medical history of migraine headaches, complex partial seizures, hypertension, hypercholesterolemia, and atrial fibrillation (on Pradaxa), who was brought to the ED by her son for progressive weakness, dizziness, light-headedness that started about a week ago. She now complains of a headache that has not responded to Fioricet. CT head did not show any acute findings. Labs showed elevated troponins. Review of Systems - Review of Systems All systems: reviewed and no additional remarkable complaints except Past Patient History - Infectious Disease Hx of Infectious Diseases: None - Past Medical History & Family History Past Medical History?: Yes - Past Social History Smoking Status: Never Smoked - CARDIAC Hx Cardiac Disorders: Yes Hx Hypertension: Yes - PULMONARY Hx Respiratory Disorders: No - NEUROLOGICAL Hx Dizziness: Yes Hx Seizures: Yes ("mild seizures", takes lamictal) - HEENT Hx HEENT Problems: No Hx Cataracts: Yes Hx Difficulty Chewing: Yes - RENAL Hx Chronic Kidney Disease: No - ENDOCRINE/METABOLIC Hx Endocrine Disorders: No - HEMATOLOGICAL/ONCOLOGICAL Hx AIDS: No Hx Anemia: Yes Hx Human Immunodeficiency Virus (HIV): No - INTEGUMENTARY Hx Dermatological Problems: No - MUSCULOSKELETAL/RHEUMATOLOGICAL Hx Arthritis: Yes Hx Falls: Yes Hx Fractures: Yes (left femur s/p fall in March) - GASTROINTESTINAL Hx Gastrointestinal Disorders: No - GENITOURINARY/GYNECOLOGICAL Hx Genitourinary Disorders: No - PSYCHIATRIC Hx Anxiety: Yes Hx Substance Use: No - SURGICAL HISTORY Hx Cholecystectomy: Yes - ANESTHESIA Hx Anesthesia: Yes Hx Anesthesia Reactions: No Hx Malignant Hyperthermia: No Has any member of the family had a problem w/ anesthesia?: No Meds Allergies/Adverse Reactions: Allergies Allergy/AdvReac Type Severity Reaction Status Date / Time No Known Allergies Allergy Verified 01/11/18 10:40 - Medications Medications: Current Medications Acetaminophen/Butalbital/Caffeine (Fioricet) 1 tab PO Q6 PRN PRN Reason: Headache Last Admin: 01/12/18 12:22 Dose: 1 tab Aspirin (Ecotrin) 325 mg PO DAILY [facility] Last Admin: 01/12/18 12:23 Dose: 325 mg Atenolol (Tenormin) 25 mg PO BID@0900,2100 [facility] Last Admin: 01/12/18 09:54 Dose: 25 mg Atorvastatin Calcium (Lipitor) 20 mg PO HS [facility] Dabigatran (Pradaxa) 150 mg PO BID [facility] PRN Reason: Protocol Last Admin: 01/12/18 09:55 Dose: 150 mg Dexamethasone (Decadron Inj) 10 mg IV ONCE ONE Stop: 01/12/18 13:01 Dextrose/Sodium Chloride (Dextrose 5%/0.9% Ns 1000 Ml) 1,000 mls @ 80 mls/hr IV .[id number] G[facility] Stop: 01/13/18 03:52 Magnesium Sulfate 1 gm/ (Dextrose) 102 mls @ 102 mls/hr IVPB Q1 [facility] Stop: 01/12/18 14:59 Lamotrigine (Lamictal) 100 mg PO DAILY [facility] Last Admin: 01/12/18 09:55 Dose: 100 mg Lorazepam (Ativan) 1 mg PO Q6 PRN PRN Reason: Anxiety Physical Exam - Neurological Exam Neurological exam: Abnormal Gait, Alert, CN II-XII Intact, Oriented x3 Additional comments: Left side chronic weakness and contracted, right side is 4/5 in strength, sensation is intact. Reflexes are brisk on the left as compared with the right. Results - Vital Signs Recent Vital Signs: Last Vital Signs Temp 98 F 01/12/18 12:00 Pulse 57 L 01/12/18 12:00 Resp 20 01/12/18 12:00 BP 169/80 H 01/12/18 12:00 Pulse Ox 97 01/12/18 12:00 - Labs Result Diagrams: 01/11/18 11:20 01/11/18 11:20 Labs: Laboratory Results - last 24 hr 01/11/18 01/11/18 01/12/18 11:20 13:59 04:20 Troponin I 0.2760 H* 0.3820 H* NT-Pro-B Natriuret Pep 567 Urine Color Yellow Urine Clarity Slighty-cloudy Urine pH 6.0 Ur Specific [place] 1.010 Urine Protein Negative Urine Glucose (UA) Neg Urine Ketones Negative Urine Blood Large Urine Nitrate Negative Urine Bilirubin Negative Urine Urobilinogen 0.2-1.0 Ur Leukocyte Esterase Small Urine RBC (Auto) 60 H Urine Microscopic WBC 15 H Ur Squamous Epith Cells 1 Urine Bacteria Rare 01/12/18 10:17 Troponin I 0.4920 H* NT-Pro-B Natriuret Pep Urine Color Urine Clarity Urine pH Ur Specific [place] Urine Protein Urine Glucose (UA) Urine Ketones Urine Blood Urine Nitrate Urine Bilirubin Urine Urobilinogen Ur Leukocyte Esterase Urine RBC (Auto) Urine Microscopic WBC Ur Squamous Epith Cells Urine Bacteria Assessment & Plan (1) Near syncope Assessment and Plan: This may be neurocardiogenic in origin. Continue telemetry, obtain CTA of the head/neck since MRI is not possible due to recent cataract surgery. Status: Acute Priority: High (2) Seizure Assessment and Plan: Will obtain EEG and continue Lamictal for now. Status: Chronic (3) Headache Assessment and Plan: Will treat headache with depakote 500 mg IV, decadron 10 mg IV and magnesium sulfate 2 grams IV once. Continue fluids with NS at 100 mL/hr. Status: Acute
[2018-01-12] MEDS ORDERED: Magnesium Sulfate 2 GM in Dextrose 5% In Water 100 ML IVPB SCH (14:00)
--- NOTE | 2018-01-12 15:53 | CP.PCM.CON ---
History of Present Illness - History of Present Illness History of Present Illness: Consultation for evaluation of NSTEMI / AMS / CP HPI: 77 year old female with hx of HTN, hypercholesterolemia , atrial fibrillation on pradaxa brought in by family for c/o dizziness. Was having difficulty with ambulation with severe fatigue. At baseline has very limited activity due to femoral fracture in 05/02. Needs assistance with ADL's. Review of Systems - Review of Systems Systems not reviewed;Unavailable: Acuity of Condition - Constitutional Constitutional: As Per HPI - EENT Eyes: As Per HPI Ears: As Per HPI Nose/Mouth/Throat: As Per HPI - Breasts Breasts: As Per HPI - Cardiovascular Cardiovascular: As Per HPI - Respiratory Respiratory: As Per HPI - Gastrointestinal Gastrointestinal: As Per HPI - Genitourinary Genitourinary: As Per HPI - Reproductive: Female Reproductive:Female: As Per HPI - Menstruation Menstruation: As Per HPI - Musculoskeletal Musculoskeletal: As Per HPI - Integumentary Integumentary: As Per HPI - Neurological Neurological: As Per HPI - Psychiatric Psychiatric: As Per HPI - Endocrine Endocrine: As Per HPI - Hematologic/Lymphatic Hematologic: As Per HPI Past Patient History - Infectious Disease Hx of Infectious Diseases: None - Past Medical History & Family History Past Medical History?: Yes - Past Social History Smoking Status: Never Smoked - CARDIAC Hx Cardiac Disorders: Yes Hx Hypertension: Yes - PULMONARY Hx Respiratory Disorders: No - NEUROLOGICAL Hx Dizziness: Yes Hx Seizures: Yes ("mild seizures", takes lamictal) - HEENT Hx HEENT Problems: No Hx Cataracts: Yes Hx Difficulty Chewing: Yes - RENAL Hx Chronic Kidney Disease: No - ENDOCRINE/METABOLIC Hx Endocrine Disorders: No - HEMATOLOGICAL/ONCOLOGICAL Hx AIDS: No Hx Anemia: Yes Hx Human Immunodeficiency Virus (HIV): No - INTEGUMENTARY Hx Dermatological Problems: No - MUSCULOSKELETAL/RHEUMATOLOGICAL Hx Arthritis: Yes Hx Falls: Yes Hx Fractures: Yes (left femur s/p fall in March) - GASTROINTESTINAL Hx Gastrointestinal Disorders: No - GENITOURINARY/GYNECOLOGICAL Hx Genitourinary Disorders: No - PSYCHIATRIC Hx Anxiety: Yes Hx Substance Use: No - SURGICAL HISTORY Hx Cholecystectomy: Yes - ANESTHESIA Hx Anesthesia: Yes Hx Anesthesia Reactions: No Hx Malignant Hyperthermia: No Has any member of the family had a problem w/ anesthesia?: No Meds Allergies/Adverse Reactions: Allergies Allergy/AdvReac Type Severity Reaction Status Date / Time No Known Allergies Allergy Verified 01/11/18 10:40 - Medications Medications: Current Medications Acetaminophen/Butalbital/Caffeine (Fioricet) 1 tab PO Q6 PRN PRN Reason: Headache Last Admin: 01/12/18 12:22 Dose: 1 tab Aspirin (Ecotrin) 325 mg PO DAILY [facility] Last Admin: 01/12/18 12:23 Dose: 325 mg Atenolol (Tenormin) 25 mg PO BID@0900,2100 [facility] Last Admin: 01/12/18 09:54 Dose: 25 mg Atorvastatin Calcium (Lipitor) 20 mg PO HS [facility] Dabigatran (Pradaxa) 150 mg PO BID GEMA PRN Reason: Protocol Last Admin: 01/12/18 09:55 Dose: 150 mg Dextrose/Sodium Chloride (Dextrose 5%/0.9% Ns 1000 Ml) 1,000 mls @ 80 mls/hr IV .[id number] [facility] Stop: 01/13/18 03:52 Magnesium Sulfate 1 gm/ (Dextrose) 102 mls @ 204 mls/hr IVPB Q1 GEMA PRN Reason: 2 GM/HR Stop: 01/12/18 16:29 Levetiracetam 500 mg/ Sodium (Chloride) 105 mls @ 210 mls/hr IVPB Q12 [facility] Lamotrigine (Lamictal) 100 mg PO DAILY [facility] Last Admin: 01/12/18 09:55 Dose: 100 mg Lorazepam (Ativan) 1 mg PO Q6 PRN PRN Reason: Anxiety Last Admin: 01/12/18 13:00 Dose: 1 mg Physical Exam - Constitutional Appears: Well - Head Exam Head Exam: ATRAUMATIC, NORMAL INSPECTION, NORMOCEPHALIC - Eye Exam Eye Exam: EOMI, Normal appearance, PERRL Pupil Exam: NORMAL ACCOMODATION, PERRL - ENT Exam ENT Exam: Mucous Membranes Moist, Normal Exam - Neck Exam Neck exam: Positive for: Normal Inspection - Respiratory Exam Respiratory Exam: Clear to Auscultation Bilateral, NORMAL BREATHING PATTERN - Cardiovascular Exam Cardiovascular Exam: REGULAR RHYTHM - GI/Abdominal Exam GI & Abdominal Exam: Normal Bowel Sounds, Soft. absent: Tenderness - Extremities Exam Extremities exam: Positive for: normal inspection - Back Exam Back exam: NORMAL INSPECTION - Neurological Exam Neurological exam: Alert, CN II-XII Intact, Normal Gait, Oriented x3, Reflexes Normal - Psychiatric Exam Psychiatric exam: Normal Affect, Normal Mood - Skin Skin Exam: Dry, Intact, Normal Color, Warm Results - Vital Signs Recent Vital Signs: Last Vital Signs Temp 98 F 01/12/18 12:00 Pulse 57 L 01/12/18 12:00 Resp 20 01/12/18 12:00 BP 169/80 H 01/12/18 12:00 Pulse Ox 97 01/12/18 12:00 - Labs Result Diagrams: 01/11/18 11:20 01/11/18 11:20 Labs: Laboratory Results - last 24 hr 01/12/18 01/12/18 04:20 10:17 Troponin I 0.3820 H* 0.4920 H* Assessment & Plan (1) Elevated troponin Assessment and Plan: etiology ? demand ischemia asa, bb, statins IV heparin plan for LHCx in am npo p mn echo reviewed Status: Acute (2) Dizziness Assessment and Plan: etiology ? IHD orthostatics Status: Acute (3) Mental status change Status: Acute (4) Atrial fibrillation Assessment and Plan: dc pradaxa Status: Acute (5) HTN (hypertension) Status: Acute
--- NOTE | 2018-01-12 16:06 | CARD ---
APPROVED REPORT Date of service: 01/12/2018 EXAM: Two-dimensional and M-mode echocardiogram with Doppler and color Doppler. Other Information Quality : GoodRhythm : NSR INDICATION Non STEMI 2D DIMENSIONS IVSd1.16 (0.7-1.1cm)LVDd5.05 (3.9-5.9cm) LVOT Diameter2.31 (1.8-2.4cm)PWd1.04 (0.7-1.1cm) IVSs1.62 (0.8-1.2cm)LVDs3.21 (2.5-4.0cm) FS (%) 36.3 %PWs1.88 (0.8-1.2cm) M-Mode DIMENSIONS Left Atrium (MM)2.81 (2.5-4.0cm)IVSd1.44 (0.7-1.1cm) Aortic Root3.65 (2.2-3.7cm)LVDd4.61 (4.0-5.6cm) Aortic Cusp Exc.2.03 (1.5-2.0cm)PWd1.13 (0.7-1.1cm) IVSs1.67 cmFS (%) 30 % LVDs3.24 (2.0-3.8cm)PWs1.54 cm Aortic Valve AoV Peak Wcxvptnh986.6cm/sAoV VTI37.8cmAO Peak GR.12mmHg LVOT Peak Juuzdbut083.5cm/sLVOT VTI23.08cmAO Mean GR.7mmHg BALJIT (VMAX)1.07hu3EKI (VTI)1.37fn3FM P 1/2 Fwvd720zx Mitral Valve MV E Dqmwhabq19.1cm/sMV DECEL [id number] A Whndilwm57.3cm/s MV TSJ56jsS/A ratio2.6MVA (PHT)3.81cm2 TDI Lateral E' Peak V8.31cm/sMedial E' Peak V7.99cm/sE/Lateral E'10.1 E/Medial E'10.5 Pulmonary Valve PV Peak Qixnvrhn65.2cm/s Tricuspid Valve TR Peak Ceumadjw207vw/sRAP HHQKJVQO85jaHzQB Peak Gr.9mmHg [id number] LEFT VENTRICLE The left ventricle is normal size. There is mild to moderate concentric left ventricular hypertrophy. The left ventricular function is normal. The left ventricular ejection fraction is within the normal range. The Ejection Fraction is 55-60%. There is normal LV segmental wall motion. Transmitral Doppler flow pattern is Grade II-pseudonormal filling dynamics. RIGHT VENTRICLE The right ventricle is normal size. There is normal right ventricular wall thickness. The right ventricular systolic function is normal. ATRIA The left atrium is borderline dilated. The right atrium is mildly dilated. AORTIC VALVE The aortic valve is mildly to moderately sclerotic. There is mild to moderate aortic regurgitation. There is no aortic valvular stenosis. MITRAL VALVE The mitral valve is thickened but opens well. There is no mitral valve stenosis. Mitral regurgitation is trace to mild. TRICUSPID VALVE The tricuspid valve leaflets are thickened , but open well. There is mild tricuspid regurgitation. PULMONIC VALVE The pulmonic valve is not well visualized. There is no pulmonic valvular regurgitation. GREAT VESSELS The aortic root is normal in size. The IVC is normal in size and collapses >50% with inspiration. PERICARDIAL EFFUSION The pericardium appears normal. <Conclusion> The left ventricular function is normal. The left ventricular ejection fraction is within the normal range. The Ejection Fraction is 55-60%. Transmitral Doppler flow pattern is Grade II-pseudonormal filling dynamics.
[2018-01-12] MEDS ORDERED: Levothyroxine 125 MCG TAB PO STA (16:21)
--- NOTE | 2018-01-12 16:29 | CARD ---
APPROVED REPORT Date of service: 01/12/2018 EKG Measurement Heart [id number] <Conclusion> Sinus bradycardia Right bundle branch block Abnormal ECG
[2018-01-12] MEDS: Magnesium Sulfate 1 GM in Dextrose 5% In Water 100 ML IVPB SCH ×2 (17:23→17:24)
--- NOTE | 2018-01-12 17:49 | CARD ---
APPROVED REPORT Date of service: 01/11/2018 EKG Measurement Heart [id number] <Conclusion> Normal sinus rhythm Right bundle branch block Abnormal ECG
[2018-01-12] MEDS: levETIRAcetam 500 MG in Sodium Chloride 0.9% 100 ML IVPB SCH (21:26)
[2018-01-13 06:34] LABS: T4 4.62 ug/dl (5.5-11.0)
[2018-01-13] MEDS ORDERED: Sodium Chloride 0.9% 1,000 ML IV SCH ×2 (06:45→23:50)
[2018-01-13 06:48] LABS: T3 0.609 nmol/L (1.49-2.60)
--- NOTE | 2018-01-13 07:11 | HP ---
CHIEF COMPLAINT: Generalized weakness, headaches, and dizziness. HISTORY OF PRESENT ILLNESS: This is a 77-year-old female, known case of atrial fibrillation, hypertension, elevated cholesterol, seizures, anxiety, anemia who was feeling weak for a few days and also was having headache and also today the patient complains of dizziness, so the patient's son brought the patient to emergency room as the patient was not herself. REVIEW OF SYSTEMS: Positive for generalized weakness, headache, dizziness, and not herself. Review of systems otherwise is negative for syncope, loss of consciousness, seizures, chest pain, nausea, vomiting, diarrhea, constipation, any new joint or extremity pain. The patient also admits to shortness of breath on exertion. Review of system of all other organ system is unremarkable. PAST MEDICAL HISTORY: Significant for hypertension, elevated cholesterol, atrial fibrillation, anxiety, anemia, seizures. PAST SURGICAL HISTORY: Remarkable for fracture and cholecystectomy. FAMILY HISTORY: Noncontributory. SOCIAL HISTORY: The patient is currently nonsmoker, nondrinker. No substance abuse. MEDICATIONS: The patient is on Lamictal, Pradaxa, Tylenol, and Ativan. ALLERGIES: THE PATIENT IS NOT ALLERGIC TO ANY MEDICATIONS. PHYSICAL EXAMINATION: GENERAL: Well-built, well-nourished 77-year-old female, in no acute distress. VITAL SIGNS: Temperature is 97.9, pulse 65, respirations 18, blood pressure 160/73. HEENT: Pupils are reacting to light. The patient is wearing glasses. Normocephalic, atraumatic skull. NECK: No JVD, no thyromegaly, no lymphadenopathy. No nystagmus. HEART: S1, S2 normal, regular. No significant murmur, gallop, or rub is heard. The patient's heart rate is irregularly irregular. LUNGS: Good bilateral air exchange. No rales or rhonchi. ABDOMEN: Soft, nontender. No organomegaly. No fluid. Bowel sounds are present and normal. EXTREMITY EXAM: No edema, no calf swelling. No tenderness. No acute ischemia. 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 There is no sign of any acute gross focal, motor, or sensory neurological deficit. DIAGNOSTIC DATA: Available diagnostic data reviewed. WBC is 5.2, hemoglobin 13.4, hematocrit 40.3, platelets 137,000. PT 13.5, PTT is 30.5. Sodium 140, potassium 4.2, chloride 106, bicarb 23, BUN 18, creatinine 1.3, troponin levels are 2 sets positive, SMA-12, otherwise is unremarkable. AST is 38. Urinalysis is negative. CAT scan of head did not reveal any acute stroke. Chest x-ray is clear. EKG shows atrial fibrillation. ADMITTING IMPRESSION: Acute non-ST myocardial infarction, coronary artery disease, hypertension, elevated cholesterol, atrial fibrillation, anxiety, anemia, seizure disorder. Telemetry monitoring shows atrial fibrillation with no other significant arrhythmias. PLAN: As ordered. Case and plan discussed with the patient. Felice Al MD
[2018-01-13] MEDS: Apap-Butalbital-Caffeine 325-50-40mg Tab PO PRN ×2 (08:57→22:05)
[2018-01-13] MEDS: Aspirin 325 mg EC Tablets PO SCH (08:58)
[2018-01-13] MEDS: levETIRAcetam 500 MG in Sodium Chloride 0.9% 100 ML IVPB SCH ×2 (08:58→22:04)
--- NOTE | 2018-01-13 09:14 | CP.PCM.PN ---
<Charlette Marcial - Last Filed: 01/13/18 10:35> Subjective - Date & Time of Evaluation Date of Evaluation: 01/13/18 Time of Evaluation: 09:13 - Subjective Subjective: No acute overnight events. Pt states that she feels good this Am. Endorsing low back pain and continues to endorse feeling fatigue. Denies chest pain, dyspnea, palpitations, n/v/d/c. Objective - Vital Signs/Intake and Output Vital Signs (last 24 hours): Temp Pulse Resp BP Pulse Ox 98.7 F 55 L 17 145/65 98 01/13/18 08:00 01/13/18 08:00 01/13/18 08:00 01/13/18 08:00 01/13/18 08:00 - Medications Medications: Current Medications Acetaminophen/Butalbital/Caffeine (Fioricet) 1 tab PO Q6 PRN PRN Reason: Headache Last Admin: 01/13/18 08:57 Dose: 1 tab Aspirin (Ecotrin) 325 mg PO DAILY [facility] Last Admin: 01/13/18 08:58 Dose: 325 mg Atorvastatin Calcium (Lipitor) 20 mg PO HS [facility] Last Admin: 01/12/18 21:27 Dose: 20 mg Carvedilol (Coreg) 6.25 mg PO Q12 [facility] Last Admin: 01/13/18 08:57 Dose: 6.25 mg Levetiracetam 500 mg/ Sodium (Chloride) 105 mls @ 210 mls/hr IVPB Q12 [facility] Last Admin: 01/13/18 08:58 Dose: 210 mls/hr Sodium Chloride (Sodium Chloride 0.9%) 1,000 mls @ 100 mls/hr IV .Q10H [facility] Stop: 01/14/18 06:41 Last Admin: 01/13/18 06:49 Dose: 100 mls/hr Lamotrigine (Lamictal) 100 mg PO DAILY [facility] Last Admin: 01/13/18 08:58 Dose: 100 mg Lorazepam (Ativan) 1 mg PO Q6 PRN PRN Reason: Anxiety Last Admin: 01/12/18 20:58 Dose: 1 mg - Labs Labs: 01/11/18 11:20 01/11/18 11:20 PT 13.5 Seconds (9.8-13.1) H 01/11/18 11:20 INR 1.2 (0.9-1.2) 01/11/18 11:20 APTT 30.5 Seconds (25.6-37.1) 01/11/18 11:20 - Constitutional Appears: No Acute Distress - Eye Exam Eye Exam: EOMI - Respiratory Exam Respiratory Exam: Clear to Ausculation Bilateral. absent: Wheezes - Cardiovascular Exam Cardiovascular Exam: REGULAR RHYTHM, +S1, +S2 - GI/Abdominal Exam GI & Abdominal Exam: Soft, Normal Bowel Sounds. absent: Tenderness - Extremities Exam Extremities Exam: Normal Inspection. absent: Calf Tenderness, Pedal Edema - Neurological Exam Neurological Exam: Alert, Awake - Psychiatric Exam Psychiatric exam: Normal Mood Assessment and Plan - Assessment and Plan (Free Text) Assessment: Assessment/Plan: 77 YO female with PMHx of HTN, Hypercholesterolmia, a fib on (perdexa) is admitted for NSTEMI, generalized weakness and hypothyroidism. -VS remain stable -blood work sig for elevated TSH and low T3/T4 -NSTEMI, on asa, BB and anti-lipid -plan as ordered -neuro and cardio on board; recs appreciated -Per cardio, cath on 01/[address] Al <Felice Al - Last Filed: 01/13/18 17:34> Objective - Vital Signs/Intake and Output Vital Signs (last 24 hours): Temp Pulse Resp BP Pulse Ox 97.4 F L 53 L 17 128/53 L 98 01/13/18 16:01 01/13/18 16:01 01/13/18 16:01 01/13/18 16:01 01/13/18 16:01 - Medications Medications: Current Medications Acetaminophen/Butalbital/Caffeine (Fioricet) 1 tab PO Q6 PRN PRN Reason: Headache Last Admin: 01/13/18 08:57 Dose: 1 tab Aspirin (Ecotrin) 325 mg PO DAILY [facility] Last Admin: 01/13/18 08:58 Dose: 325 mg Atorvastatin Calcium (Lipitor) 20 mg PO HS [facility] Last Admin: 01/12/18 21:27 Dose: 20 mg Carvedilol (Coreg) 6.25 mg PO Q12 [facility] Last Admin: 01/13/18 08:57 Dose: 6.25 mg Divalproex Sodium ([place](*Bid*)) 250 mg PO BID [facility] Levetiracetam 500 mg/ Sodium (Chloride) 105 mls @ 210 mls/hr IVPB Q12 [facility] Last Admin: 01/13/18 08:58 Dose: 210 mls/hr Sodium Chloride (Sodium Chloride 0.9%) 1,000 mls @ 100 mls/hr IV .Q10H [facility] Stop: 01/14/18 09:21 Lamotrigine (Lamictal) 100 mg PO DAILY [facility] Last Admin: 01/13/18 08:58 Dose: 100 mg Lorazepam (Ativan) 1 mg PO Q6 PRN PRN Reason: Anxiety Last Admin: 01/12/18 20:58 Dose: 1 mg Prednisolone Acetate (Pred Forte 1% Opht Susp) 1 drop OD DAILY [facility] Last Admin: 01/13/18 16:29 Dose: 1 unit - Labs Labs: 01/11/18 11:20 01/13/18 09:21 PT 13.5 Seconds (9.8-13.1) H 01/11/18 11:20 INR 1.2 (0.9-1.2) 01/11/18 11:20 APTT 30.5 Seconds (25.6-37.1) 01/11/18 11:20 Assessment and Plan - Assessment and Plan (Free Text) Assessment: Patient was personally seen and examined by me in rounds with residents. Available labs and diagnostic data reviewed. Case, Patient's condition and management plan discussed with residents in rounds. Agree with resident's progress note. Plan: As ordered.
[2018-01-13 10:26] LABS: BLOOD UREA NITROGEN 18 mg/dl (7-17); CALCIUM 8.8 mg/dL (8.4-10.2); GFR AFRICAN-AMERICAN > 60; GFR NON-AFRICAN AMERICAN 54
--- NOTE | 2018-01-13 12:54 | PQF ---
PROVIDER RESPONSE TEXT: Chronic afib REVIEWER QUERY TEXT: Atrial Fibrillation Type Atrial fibrillation is documented in the Medical Record. Please specify the type Such as: -- Chronic -- Paroxysmal -- Permanent -- Persistent -- Other, please specify The patient's Clinical Indicators include: Documentation that the patient has a history of Atrial Fibrillation. On Pradaxa as an outpatient. Query created by: Claudia Arana on 01/13/2018 12:46 PM Electronically signed by: Charlette Marcial 01/13/2018 12:51 PM
--- NOTE | 2018-01-13 16:01 | PCM.EEG ---
Electroencephalogram Report - Electroencephalogram Report Procedure Date: 01/13/18 Interpretation: Indication: episodes of confusion. Medications were reviewed. Technical: This is a digitally recorded electroencephalogram. The international 10-20 electrode placement system is used for scalp electrode placement. Eighteen channels of scalp EEG are recorded Another channel was used for for ECG. The data are stored digitally and reviewed in reformatted montages for optimal display. Background: 9 to 10 hertz alpha activity was seen. Maximal over the posterior head region. These activities are symmetric on both sides. They attenuated with eye opening. Focal abnormality: Periodic lateralized discharge was seen. Mainly over the Left temporal area. Hyperventilation and photic stimulation did not significantly alter the recording. Impression: This EEG is abnormal. Epileptiform discharge was seen. This can represent a potential seizure focus. Clinical correlation is needed.
--- NOTE | 2018-01-13 16:06 | CP.PCM.PN ---
Subjective - Date & Time of Evaluation Date of Evaluation: 01/13/18 Time of Evaluation: 16:04 - Subjective Subjective: Mrs. Mcmanus was seen and examined today at bedside. She had no new complaints. She continues to complain of generalized headache. Overnight, she was extremely agitated and was given Ativan IV. I reviewed her EEG and noted left temporal sharp wave discharges consistent with her history of complex partial seizures. Objective - Vital Signs/Intake and Output Vital Signs (last 24 hours): Temp Pulse Resp BP Pulse Ox 97.4 F L 53 L 17 128/53 L 98 01/13/18 16:01 01/13/18 16:01 01/13/18 16:01 01/13/18 16:01 01/13/18 16:01 - Medications Medications: Current Medications Acetaminophen/Butalbital/Caffeine (Fioricet) 1 tab PO Q6 PRN PRN Reason: Headache Last Admin: 01/13/18 08:57 Dose: 1 tab Aspirin (Ecotrin) 325 mg PO DAILY [facility] Last Admin: 01/13/18 08:58 Dose: 325 mg Atorvastatin Calcium (Lipitor) 20 mg PO HS [facility] Last Admin: 01/12/18 21:27 Dose: 20 mg Carvedilol (Coreg) 6.25 mg PO Q12 [facility] Last Admin: 01/13/18 08:57 Dose: 6.25 mg Levetiracetam 500 mg/ Sodium (Chloride) 105 mls @ 210 mls/hr IVPB Q12 [facility] Last Admin: 01/13/18 08:58 Dose: 210 mls/hr Sodium Chloride (Sodium Chloride 0.9%) 1,000 mls @ 100 mls/hr IV .Q10H [facility] Stop: 01/14/18 09:21 Lamotrigine (Lamictal) 100 mg PO DAILY [facility] Last Admin: 01/13/18 08:58 Dose: 100 mg Lorazepam (Ativan) 1 mg PO Q6 PRN PRN Reason: Anxiety Last Admin: 01/12/18 20:58 Dose: 1 mg - Labs Labs: 01/11/18 11:20 01/13/18 09:21 PT 13.5 Seconds (9.8-13.1) H 01/11/18 11:20 INR 1.2 (0.9-1.2) 01/11/18 11:20 APTT 30.5 Seconds (25.6-37.1) 01/11/18 11:20 - Neurological Exam Additional comments: Neurologically unchanged compared with previous examination. Assessment and Plan (1) Near syncope Assessment & Plan: Continue cardiac work-up. Status: Acute (2) Seizure Assessment & Plan: Will start Depakote 250 mg BID and titrate up as tolerated. Continue Lamictal at current dose. Status: Chronic (3) Headache Assessment & Plan: Improved. Status: Acute
[2018-01-13] MEDS: PrednisoLONE 1% OPTH SUSP OD SCH (16:29)
[2018-01-13] MEDS ORDERED: Sodium Chloride 0.9% 50 ML IV ONE (16:30)
[2018-01-13] MEDS ORDERED: Iodixanol 320 MG/ML 100 ML BOTTLE IV ONE (16:30)
[2018-01-13] MEDS: Divalproex 250 mg DR(BID formulation) PO SCH (18:06)
--- NOTE | 2018-01-13 23:59 | CP.PCM.PN ---
Subjective - Date & Time of Evaluation Date of Evaluation: 01/13/18 Time of Evaluation: 23:00 Objective - Vital Signs/Intake and Output Vital Signs (last 24 hours): Temp Pulse Resp BP Pulse Ox 97.7 F 56 L 16 125/61 98 01/13/18 20:26 01/13/18 20:26 01/13/18 20:26 01/13/18 20:26 01/13/18 20:26 - Medications Medications: Current Medications Acetaminophen/Butalbital/Caffeine (Fioricet) 1 tab PO Q6 PRN PRN Reason: Headache Last Admin: 01/13/18 22:05 Dose: 1 tab Aspirin (Ecotrin) 325 mg PO DAILY [facility] Last Admin: 01/13/18 08:58 Dose: 325 mg Atorvastatin Calcium (Lipitor) 20 mg PO HS [facility] Last Admin: 01/13/18 22:05 Dose: 20 mg Carvedilol (Coreg) 6.25 mg PO Q12 [facility] 234 [facility]S [facility] Last Admin: 01/13/18 22:49 Dose: Not Given Divalproex Sodium (Depakote Dr(*Bid*)) 250 mg PO BID [facility] Last Admin: 01/13/18 18:06 Dose: 250 mg Levetiracetam 500 mg/ Sodium (Chloride) 105 mls @ 210 mls/hr IVPB Q12 [facility] 234 [facility] Last Admin: 01/13/18 22:04 Dose: 210 mls/hr Sodium Chloride (Sodium Chloride 0.9%) 1,000 mls @ 100 mls/hr IV .Q10H [facility] 234 [facility]S [facility] Stop: 01/14/18 09:21 Lamotrigine (Lamictal) 100 mg PO DAILY [facility] Last Admin: 01/13/18 08:58 Dose: 100 mg Lorazepam (Ativan) 1 mg PO Q6 PRN PRN Reason: Anxiety Last Admin: 01/12/18 20:58 Dose: 1 mg Prednisolone Acetate (Pred Forte 1% Opht Susp) 1 drop OD DAILY [facility] Last Admin: 01/13/18 16:29 Dose: 1 unit - Labs Labs: 01/11/18 11:20 01/13/18 09:21 PT 13.5 Seconds (9.8-13.1) H 01/11/18 11:20 INR 1.2 (0.9-1.2) 01/11/18 11:20 APTT 30.5 Seconds (25.6-37.1) 01/11/18 11:20 Assessment and Plan (1) Elevated troponin Status: Acute (2) Dizziness Status: Acute (3) Mental status change Status: Acute (4) Atrial fibrillation Status: Acute (5) HTN (hypertension) Status: Acute
--- NOTE | 2018-01-14 01:21 | CP.PCM.PCO ---
Addendum Addendum: 01/14/18 01:15 Called to [facility] patient c/o persistent "migraines" after admin of depakote earlier today and fioricet and toradol at night. Patient states the headache is the same migraine headache she always has and is requesting specifically "ativan" for it. Seems anxious but not agitated at this time. Ativan noted to be on hold and as per nurse its being held for concerns of worsening AMS, confusion, ect. Likely anxiety/Benzo dependence Will monitor for now.
[2018-01-14 05:35] LABS: HEMOGLOBIN 11.9 g/dL (12.0-16.0); MEAN CELL VOLUME 90.8 fl (81.0-99.0); MEAN CORPUSCULAR HGB CONC 33.1 g/dL (33.0-37.0); RBC 3.95 Mil/uL (3.80-5.20); RED CELL DISTRIBUTION WIDTH 14.4 % (11.5-14.5); WHITE BLOOD COUNT 8.2 K/uL (4.8-10.8)
[2018-01-14 06:46] LABS: ALB/GLOB RATIO 0.9 (1.0-2.1); ALBUMIN 3.3 g/dL (3.5-5.0); CALCIUM 8.5 mg/dL (8.4-10.2)
[2018-01-14] MEDS: levETIRAcetam 500 MG in Sodium Chloride 0.9% 100 ML IVPB SCH (08:20)
[2018-01-14] MEDS: Aspirin 325 mg EC Tablets PO SCH (08:24)
[2018-01-14] MEDS: Divalproex 250 mg DR(BID formulation) PO SCH ×2 (08:39→16:32)
--- NOTE | 2018-01-14 08:57 | CP.PCM.PN ---
<Johnie Paynea - Last Filed: 01/14/18 09:09> Subjective - Date & Time of Evaluation Date of Evaluation: 01/14/18 Time of Evaluation: 08:20 - Subjective Subjective: Pt seen this morning on bedside rounds with Dr. Al. No chest pain, dyspnea, palpitations, leg/calf pain. For cardiac cath today w/ Dr. Harris at [facility]. Objective - Vital Signs/Intake and Output Vital Signs (last 24 hours): Temp Pulse Resp BP Pulse Ox 98.8 F 69 20 118/44 L 97 01/14/18 08:00 01/14/18 08:00 01/14/18 08:00 01/14/18 08:00 01/14/18 08:00 - Medications Medications: Current Medications Acetaminophen/Butalbital/Caffeine (Fioricet) 1 tab PO Q6 PRN PRN Reason: Headache Last Admin: 01/13/18 22:05 Dose: 1 tab Aspirin (Ecotrin) 325 mg PO DAILY [facility] Last Admin: 01/14/18 08:24 Dose: 325 mg Atorvastatin Calcium (Lipitor) 20 mg PO HS [facility] Last Admin: 01/13/18 22:05 Dose: 20 mg Carvedilol (Coreg) 6.25 mg PO Q12 [facility] Last Admin: 01/13/18 22:49 Dose: Not Given Divalproex Sodium (Depakote Dr(*Bid*)) 250 mg PO BID [facility] Last Admin: 01/14/18 08:39 Dose: 250 mg Levetiracetam 500 mg/ Sodium (Chloride) 105 mls @ 210 mls/hr IVPB Q12 [facility] Last Admin: 01/14/18 08:20 Dose: 210 mls/hr Sodium Chloride (Sodium Chloride 0.9%) 1,000 mls @ 100 mls/hr IV .Q10H [facility] Stop: 01/14/18 09:21 Last Admin: 01/14/18 00:22 Dose: 100 mls/hr Lamotrigine (Lamictal) 100 mg PO DAILY [facility] Last Admin: 01/14/18 08:39 Dose: 100 mg Lorazepam (Ativan) 1 mg PO Q6 PRN PRN Reason: Anxiety Last Admin: 01/12/18 20:58 Dose: 1 mg Lorazepam (Ativan) 1 mg IVP STAT [facility] Stop: 01/14/18 08:24 Prednisolone Acetate (Pred Forte 1% Opht Susp) 1 drop OD DAILY [facility] Last Admin: 01/13/18 16:29 Dose: 1 unit - Labs Labs: 01/14/18 04:20 01/14/18 04:20 PT 13.5 Seconds (9.8-13.1) H 01/11/18 11:20 INR 1.2 (0.9-1.2) 01/11/18 11:20 APTT 30.5 Seconds (25.6-37.1) 01/11/18 11:20 - Constitutional Appears: Non-toxic - Head Exam Head Exam: NORMAL INSPECTION - Eye Exam Eye Exam: EOMI - Respiratory Exam Respiratory Exam: NORMAL BREATHING PATTERN. absent: Respiratory Distress Additional comments: good breath sounds b/l - Cardiovascular Exam Cardiovascular Exam: REGULAR RHYTHM, +S1, +S2 - GI/Abdominal Exam GI & Abdominal Exam: Soft, Normal Bowel Sounds - Extremities Exam Extremities Exam: absent: Pedal Edema, Tenderness - Neurological Exam Neurological Exam: Alert, Awake Assessment and Plan - Assessment and Plan (Free Text) Assessment: 77 yo female with PMHx of hypertension, hypercholesterolmia, A-fib (was on perdexa); admitted for NSTEMI, generalized weakness and hypothyroidism. Plan: - cardio on consult; recs appreciated; for cardiac cath today at [facility] - on ASA, beta-[place], and statin - neuro on consult; recs appreciated; s/p EEG - abnormal EEG; neuro started on depakote 250 mg BID, continue lamictal - vitals remain stable - blood work sig for elevated TSH and low T3/T4 - rest of plan as ordered <Felice Al - Last Filed: 01/14/18 21:01> Objective - Vital Signs/Intake and Output Vital Signs (last 24 hours): Temp Pulse Resp BP Pulse Ox 97.8 F 62 18 110/69 98 01/14/18 20:33 01/14/18 20:33 01/14/18 20:33 01/14/18 20:33 01/14/18 20:33 - Medications Medications: Current Medications Acetaminophen/Butalbital/Caffeine (Fioricet) 1 tab PO Q6 PRN PRN Reason: Headache Last Admin: 01/13/18 22:05 Dose: 1 tab Aspirin (Ecotrin) 325 mg PO DAILY [facility] Last Admin: 01/14/18 08:24 Dose: 325 mg Atorvastatin Calcium (Lipitor) 20 mg PO HS [facility] Last Admin: 01/13/18 22:05 Dose: 20 mg Carvedilol (Coreg) 6.25 mg PO Q12 [facility] Last Admin: 01/14/18 09:33 Dose: 6.25 mg Divalproex Sodium (Depakote Dr(*Bid*)) 250 mg PO BID [facility] Last Admin: 01/14/18 16:32 Dose: 250 mg Lamotrigine (Lamictal) 100 mg PO DAILY [facility] Last Admin: 01/14/18 08:39 Dose: 100 mg Lorazepam (Ativan) 1 mg PO Q6 PRN PRN Reason: Anxiety Last Admin: 01/12/18 20:58 Dose: 1 mg Prednisolone Acetate (Pred Forte 1% Opht Susp) 1 drop OD DAILY [facility] Last Admin: 01/14/18 09:32 Dose: 1 unit - Labs Labs: 01/14/18 04:20 01/14/18 04:20 PT 13.5 Seconds (9.8-13.1) H 01/11/18 11:20 INR 1.2 (0.9-1.2) 01/11/18 11:20 APTT 30.5 Seconds (25.6-37.1) 01/11/18 11:20 Assessment and Plan - Assessment and Plan (Free Text) Plan: Patient was personally seen and examined by me in rounds with residents. Available labs and diagnostic data reviewed. Case, Patient's condition and management plan discussed with residents in rounds. Agree with resident's progress note. Plan: As ordered.
[2018-01-14] MEDS ORDERED: Magnesium Sulfate 1 gm in D5W 1 GM/100 ML BAG IVPB STA (09:20)
[2018-01-14] MEDS ORDERED: Dexamethasone 10 MG in Sodium Chloride 0.9% 50 ML IVPB STA (09:20)
[2018-01-14] MEDS: PrednisoLONE 1% OPTH SUSP OD SCH (09:32)
--- NOTE | 2018-01-14 12:07 | CT ---
PROCEDURE: CTA HEAD AND NECK WITH CONTRAST HISTORY: Dizziness/near syncope COMPARISON: None available. TECHNIQUE: Initial noncontrast head CT was performed. Subsequently, CT angiogram of the head and neck were performed after the intravenous administration of 80 mL of Omnipaque 350. Contiguous 1.5mm thick images were obtained in the axial plane of the neck. 2-D coronal and sagittal MPR images were obtained. Imaging postprocessing was performed with 3-D images also obtained. A delayed contrast head CT was also obtained. This CT exam was performed using one or more of the following dose reduction techniques: Automated exposure control, adjustment of the mA and/or kV according to patient size, and/or use of iterative reconstruction technique. Contrast dose: 90 mL Visipaque 320 Radiation dose: Total exam DLP = 461.77 mGy-cm. FINDINGS: HEAD: Mild atherosclerotic calcifications in the cavernous carotid arteries. Right: The intracranial internal carotid artery, and anterior and middle cerebral arteries are widely patent. Left: The intracranial internal carotid artery, and anterior and middle cerebral arteries are widely patent. 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 The visualized intracranial vertebral arteries, basilar artery and posterior cerebral arteries are widely patent. There is no endoluminal filling defect to suggest thrombus. There is no intracranial saccular aneurysm. There is no abnormal enhancement on the postcontrast CT. NECK: There is a three vessel aortic arch. There is no stenosis at the origins of the great vessels at the level of the aortic arch. Right Carotid: On the right, the common carotid, internal carotid and external carotid arteries are widely patent. There is no hemodynamically significant stenosis in the internal carotid artery by NASCET criteria. Left Carotid: On the left, the common carotid, internal carotid and external carotid arteries are widely patent. There are advanced atherosclerotic calcifications in the carotid bulb. There is no hemodynamically significant stenosis in the internal carotid arteries. There is no hemodynamically significant stenosis in the internal carotid artery by NASCET criteria. The vertebral arteries are widely patent. The left vertebral artery is hypoplastic, an anatomic variant. The visualized soft tissues of the neck are normal. The visualized brain and cervical spine are within normal limits. The lung apices are clear. IMPRESSION: 1. No evidence of endoluminal thrombus,occlusion or definite significant stenosis in the intracranial arteries. 2. No evidence of hemodynamically significant stenosis in the internal carotid arteries. 3. Patent bilateral vertebral arteries. A preliminary report was provided by [employer].
--- NOTE | 2018-01-14 13:56 | CP.PCM.PN ---
Subjective - Date & Time of Evaluation Date of Evaluation: 01/14/18 Time of Evaluation: 13:55 - Subjective Subjective: MS worsened cath cancelled in [facility] as pt unable to give consent re-evaluate in 24-48 hours EEG left temporal discharges Objective - Vital Signs/Intake and Output Vital Signs (last 24 hours): Temp Pulse Resp BP Pulse Ox 96.6 F L 60 18 146/64 96 01/14/18 12:00 01/14/18 12:00 01/14/18 12:00 01/14/18 12:00 01/14/18 12:00 - Medications Medications: Current Medications Acetaminophen/Butalbital/Caffeine (Fioricet) 1 tab PO Q6 PRN PRN Reason: Headache Last Admin: 01/13/18 22:05 Dose: 1 tab Aspirin (Ecotrin) 325 mg PO DAILY [facility] Last Admin: 01/14/18 08:24 Dose: 325 mg Atorvastatin Calcium (Lipitor) 20 mg PO HS [facility] Last Admin: 01/13/18 22:05 Dose: 20 mg Carvedilol (Coreg) 6.25 mg PO Q12 [facility] Last Admin: 01/14/18 09:33 Dose: 6.25 mg Divalproex Sodium (Depakote Dr(*Bid*)) 250 mg PO BID [facility] Last Admin: 01/14/18 08:39 Dose: 250 mg Levetiracetam 500 mg/ Sodium (Chloride) 105 mls @ 210 mls/hr IVPB Q12 [facility] Last Admin: 01/14/18 08:20 Dose: 210 mls/hr Lamotrigine (Lamictal) 100 mg PO DAILY [facility] Last Admin: 01/14/18 08:39 Dose: 100 mg Lorazepam (Ativan) 1 mg PO Q6 PRN PRN Reason: Anxiety Last Admin: 01/12/18 20:58 Dose: 1 mg Prednisolone Acetate (Pred Forte 1% Opht Susp) 1 drop OD DAILY [facility] Last Admin: 01/14/18 09:32 Dose: 1 unit - Labs Labs: 01/14/18 04:20 01/14/18 04:20 PT 13.5 Seconds (9.8-13.1) H 01/11/18 11:20 INR 1.2 (0.9-1.2) 01/11/18 11:20 APTT 30.5 Seconds (25.6-37.1) 01/11/18 11:20 - Constitutional Appears: In Acute Distress, Confused - Head Exam Head Exam: ATRAUMATIC, NORMAL INSPECTION, NORMOCEPHALIC - Eye Exam Eye Exam: EOMI, Normal appearance, PERRL Pupil Exam: NORMAL ACCOMODATION, PERRL - ENT Exam ENT Exam: Mucous Membranes Moist, Normal Exam - Neck Exam Neck Exam: Full ROM, Normal Inspection. absent: Lymphadenopathy - Respiratory Exam Respiratory Exam: Clear to Ausculation Bilateral, NORMAL BREATHING PATTERN - Cardiovascular Exam Cardiovascular Exam: REGULAR RHYTHM, +S1, +S2. absent: Murmur - GI/Abdominal Exam GI & Abdominal Exam: Soft, Normal Bowel Sounds. absent: Tenderness - Rectal Exam Rectal Exam: NORMAL INSPECTION - Exam Exam: Circumcision, NORMAL INSPECTION External exam: NORMAL EXTERNAL EXAM Speculum exam: NORMAL SPECULUM EXAM Bimanual exam: NORMAL BIMANUAL EXAM - Extremities Exam Extremities Exam: Full ROM, Normal Capillary Refill, Normal Inspection. absent : Joint Swelling, Pedal Edema - Back Exam Back Exam: NORMAL INSPECTION - Neurological Exam Neurological Exam: Alert, Awake, CN II-XII Intact, Normal Gait, Oriented x3 - Psychiatric Exam Psychiatric exam: Normal Affect, Normal Mood - Skin Skin Exam: Dry, Intact, Normal Color, Warm Assessment and Plan (1) Elevated troponin Status: Acute (2) Dizziness Status: Acute (3) Mental status change Status: Acute (4) Atrial fibrillation Status: Acute (5) HTN (hypertension) Status: Acute
[2018-01-14] MEDS ORDERED: Oxycodone/Acetaminophen 5/325 mg Tab PO ONE (15:55)
[2018-01-14] MEDS: Oxycodone/Acetaminophen 5/325 mg Tab PO PRN (21:51)
[2018-01-15] MEDS: Oxycodone/Acetaminophen 5/325 mg Tab PO PRN ×2 (04:53→14:00)
[2018-01-15 06:34] LABS: HEMOGLOBIN 11.9 g/dL (12.0-16.0); MEAN CELL VOLUME 90.7 fl (81.0-99.0); MEAN CORPUSCULAR HGB CONC 33.1 g/dL (33.0-37.0); RBC 3.97 Mil/uL (3.80-5.20); RED CELL DISTRIBUTION WIDTH 14.3 % (11.5-14.5); WHITE BLOOD COUNT 8.1 K/uL (4.8-10.8)
[2018-01-15 07:23] LABS: CALCIUM 8.6 mg/dL (8.4-10.2)
--- NOTE | 2018-01-15 09:54 | CP.PCM.PN ---
Subjective - Date & Time of Evaluation Date of Evaluation: 01/15/18 Time of Evaluation: 09:54 Objective - Vital Signs/Intake and Output Vital Signs (last 24 hours): Temp Pulse Resp BP Pulse Ox 97.7 F 59 L 20 152/66 H 99 01/15/18 08:00 01/15/18 08:00 01/15/18 08:00 01/15/18 08:00 01/15/18 08:00 - Medications Medications: Current Medications Acetaminophen/Butalbital/Caffeine (Fioricet) 1 tab PO Q6 PRN PRN Reason: Headache Last Admin: 01/13/18 22:05 Dose: 1 tab Aspirin (Ecotrin) 325 mg PO DAILY [facility] Last Admin: 01/14/18 08:24 Dose: 325 mg Atorvastatin Calcium (Lipitor) 20 mg PO HS [facility] Last Admin: 01/14/18 21:52 Dose: 20 mg Carvedilol (Coreg) 6.25 mg PO Q12 [facility] Last Admin: 01/14/18 21:51 Dose: 6.25 mg Divalproex Sodium (Depakote Dr(*Bid*)) 500 mg PO BID [facility] Lamotrigine (Lamictal) 100 mg PO DAILY [facility] Last Admin: 01/14/18 08:39 Dose: 100 mg Lorazepam (Ativan) 1 mg PO Q6 PRN PRN Reason: Anxiety Last Admin: 01/12/18 20:58 Dose: 1 mg Oxycodone/Acetaminophen (Percocet 5/325 Mg Tab) 1 tab PO Q6 PRN PRN Reason: Pain, severe (8-10) Stop: 01/17/18 21:15 Last Admin: 01/15/18 04:53 Dose: 1 tab Prednisolone Acetate (Pred Forte 1% Opht Susp) 1 drop OD DAILY [facility] Last Admin: 01/14/18 09:32 Dose: 1 unit - Labs Labs: 01/15/18 05:40 01/15/18 05:40 PT 13.5 Seconds (9.8-13.1) H 01/11/18 11:20 INR 1.2 (0.9-1.2) 01/11/18 11:20 APTT 30.5 Seconds (25.6-37.1) 01/11/18 11:20 Assessment and Plan (1) Elevated troponin Status: Acute (2) Dizziness Status: Acute (3) Mental status change Status: Acute (4) Atrial fibrillation Status: Acute (5) HTN (hypertension) Status: Acute
[2018-01-15] MEDS: Divalproex 500 mg DR(BID formulation) PO SCH ×2 (10:07→17:20)
[2018-01-15] MEDS: Aspirin 325 mg EC Tablets PO SCH (10:07)
[2018-01-15] MEDS: PrednisoLONE 1% OPTH SUSP OD SCH (10:10)
[2018-01-15 11:46] LABS: T4 4.17 ug/dl (5.5-11.0)
[2018-01-15 11:59] LABS: T3 0.597 nmol/L (1.49-2.60)
--- NOTE | 2018-01-15 12:35 | CARD ---
APPROVED REPORT Date of service: 01/15/2018 <Conclusion> Sinus bradycardia Right bundle branch block Abnormal ECG
--- NOTE | 2018-01-15 15:48 | CT ---
Date of service: 01/15/2018 PROCEDURE: CT HEAD WITHOUT CONTRAST. HISTORY: f/u COMPARISON: Noncontrast head CT 01/11/2018. TECHNIQUE: Axial computed tomography images were obtained through the head/brain without intravenous contrast. Radiation dose: Total exam DLP = 1609.49 mGy-cm. This CT exam was performed using one or more of the following dose reduction techniques: Automated exposure control, adjustment of the mA and/or kV according to patient size, and/or use of iterative reconstruction technique. FINDINGS: HEMORRHAGE: No intracranial hemorrhage. BRAIN: There is cytotoxic edema identified at the left parietal lobe in a pattern compatible with brain infarction, likely subacute or potentially early chronic. Multiple foci are seen lucent at the right cerebellum likely representing early chronic or late subacute infarction. Follow-up MRI is advised for additional characterization. No midline shift or other global mass effect pattern evident. Limited local mass-effect is seen in the left parietal lobe. Otherwise, diffuse cerebral atrophy is reiterated as well as chronic microangiopathy. A small chronic infarct of the right frontal lobe is reiterated. No suspicious extra-axial fluid collection identified in the interval. VENTRICLES: Unremarkable. No hydrocephalus. CALVARIUM: Unremarkable. PARANASAL SINUSES: Unremarkable as visualized. No significant inflammatory changes. MASTOID AIR CELLS: Unremarkable as visualized. No inflammatory changes. OTHER FINDINGS: None. IMPRESSION: 1. A lobar infarction is identified in the left parietal lobe with interval lucency identified at the right cerebellum inferiorly also reflecting small focal infarcts. No associated intracranial hemorrhage or generalized mass effect although local mass effect is appreciated at the left parietal infarct. Follow-up brain MRI is advised unless contraindicated. 2. Chronic infarct right frontal lobe reiterated. 3. Reiterated diffuse cerebral atrophy chronic microangiopathy.
--- NOTE | 2018-01-15 15:51 | CP.PCM.PN ---
Subjective - Date & Time of Evaluation Date of Evaluation: 01/15/18 Time of Evaluation: 15:48 - Subjective Subjective: Neurology Progress Note: Mrs. Mcmanus was seen and examined today at bedside. She continues to be agitation at times and was crying when I saw her, complaining of headache. CT scan of the head is consistent with bilateral embolic appearing subacute ischemic strokes. She has a history of atrial fibrillation, so the source is likely cardio-embolic. She is not currently on anticoagulation, but is on aspirin. She has intermittent episodes of lethargy. Objective - Vital Signs/Intake and Output Vital Signs (last 24 hours): Temp Pulse Resp BP Pulse Ox 97.3 F L 53 L 18 143/56 L 93 L 01/15/18 15:44 01/15/18 15:44 01/15/18 15:44 01/15/18 15:44 01/15/18 15:44 - Medications Medications: Current Medications Acetaminophen/Butalbital/Caffeine (Fioricet) 1 tab PO Q6 PRN PRN Reason: Headache Last Admin: 01/13/18 22:05 Dose: 1 tab Amantadine HCl (Amantadine 100 Mg Cap) 100 mg PO BID [facility] Last Admin: 01/15/18 14:01 Dose: 100 mg Aspirin (Ecotrin) 325 mg PO DAILY [facility] Last Admin: 01/15/18 10:07 Dose: 325 mg Atorvastatin Calcium (Lipitor) 20 mg PO HS [facility] Last Admin: 01/14/18 21:52 Dose: 20 mg Carvedilol (Coreg) 6.25 mg PO Q12 [facility] Last Admin: 01/15/18 10:08 Dose: 6.25 mg Divalproex Sodium (Depakote Dr(*Bid*)) 500 mg PO BID [facility] Last Admin: 01/15/18 10:07 Dose: 500 mg Lamotrigine (Lamictal) 100 mg PO DAILY [facility] Last Admin: 01/15/18 10:09 Dose: 100 mg Lorazepam (Ativan) 1 mg PO Q6 PRN PRN Reason: Anxiety Last Admin: 01/12/18 20:58 Dose: 1 mg Oxycodone/Acetaminophen (Percocet 5/325 Mg Tab) 1 tab PO Q6 PRN PRN Reason: Pain, severe (8-10) Stop: 01/17/18 21:15 Last Admin: 01/15/18 14:00 Dose: 1 tab Prednisolone Acetate (Pred Forte 1% Opht Susp) 1 drop OD DAILY [facility] Last Admin: 01/15/18 10:10 Dose: 1 unit - Labs Labs: 01/15/18 05:40 01/15/18 05:40 PT 13.5 Seconds (9.8-13.1) H 01/11/18 11:20 INR 1.2 (0.9-1.2) 01/11/18 11:20 APTT 30.5 Seconds (25.6-37.1) 01/11/18 11:20 - Neurological Exam Neurological Exam: Abnormal Gait, Alert, Awake, Oriented x3 Neuro motor strength exam: Left Upper Extremity: 3, Right Upper Extremity: 4, Left Lower Extremity: 4, Right Lower Extremity: 4 Additional comments: Dysarthric, not aphasic, left side weakness is somewhat chronic. NIHSS = 8 Assessment and Plan (1) Seizure Assessment & Plan: Continue current AED regimen. Will add amantadine to improve level or alertness. Status: Chronic (2) Headache Assessment & Plan: Increased depakote. Continue PRN Fioricet. Status: Acute (3) Ischemic stroke Assessment & Plan: THis appears to be subacute and is related to atrial fibrillation since the location is consistent with embolic stroke. Will start Eliquis 2.5 mg BID, with a plan to repeat the CT head in 72 hours and if there is no hemorrhagic conversion, we will increase to full dose Eliquis. The patient should be evaluated by PT/OT and managed per the post stroke protocol. I recommend repeating swallow evaluation. Start fluids with NS at 100 mL/hr. MRI of the brain without contrast. Status: Acute
--- NOTE | 2018-01-16 09:26 | CP.PCM.PCO ---
Assessment & Plan - Assessment and Plan (Free Text) Assessment: Spoke with patient's opthamologist , s/p cataract sx , pt. may have MRI brain/ scan per
[2018-01-16] MEDS: Divalproex 500 mg DR(BID formulation) PO SCH (10:18)
[2018-01-16] MEDS: PrednisoLONE 1% OPTH SUSP OD SCH (10:19)
[2018-01-16] MEDS ORDERED: Enoxaparin 60 mg Syringe SC SCH (11:00)
[2018-01-16] MEDS ORDERED: Enoxaparin 80 mg Syringe SC SCH (12:00)
--- NOTE | 2018-01-16 12:52 | CT ---
Date of service: 01/16/2018 PROCEDURE: CT HEAD WITHOUT CONTRAST. HISTORY: [facility] [employer]-[facility] COMPARISON: None available. TECHNIQUE: Axial computed tomography images were obtained through the head/brain without intravenous contrast. Radiation dose: Total exam DLP = mGy-cm. This CT exam was performed using one or more of the following dose reduction techniques: Automated exposure control, adjustment of the mA and/or kV according to patient size, and/or use of iterative reconstruction technique. FINDINGS: BRAIN: Punctate cortical hemorrhage is seen at the left frontal vertex. No interval additional intracranial hemorrhage appreciable. Infarct in evolution is appreciated at the left parietal lobe with a slight expansion of territory anteriorly and inferiorly further into the left parietal lobe. Multiple lucencies the inferior right cerebellum are stable reflecting latter stage infarction. No additional posterior fossa finding No midline shift once again. No large intracranial hemorrhage. Diffuse cerebral atrophy chronic microangiopathy are reiterated. VENTRICLES: Unremarkable. No hydrocephalus. CALVARIUM: Unremarkable. PARANASAL SINUSES: Unremarkable as visualized. No significant inflammatory changes. MASTOID AIR CELLS: Unremarkable as visualized. No inflammatory changes. OTHER FINDINGS: None. IMPRESSION: 1. Left parietal infarct in evolution with increased edema appreciated at the left parietal lobe inferomedially but without significant mass effect outside of the local loss of sulcation. Trace cortical hemorrhage is identified at the left frontal vertex as discussed above. This appears to be separate from the infarct seen territories. No significant midline shift. Late infarct in evolution and right cerebellum reiterated. 2. Chronic infarct right frontal lobe reiterated as well as age related neuro degenerative findings. Discussed with Nurse Ayala with written down and read back verification 01/16/2018 12:45 p.m..
--- NOTE | 2018-01-16 13:29 | PCM.RRT ---
SANFORIZER Nurse Assessment - IV IV Inserted during SANFORIZER?: No - Respiratory Oxygen Delivery Method: Nasal Cannula Received Nebulizer Treatments: No Was the Patient Ventilated with Bag/Mask 100% O2?: No Secretions Suctioned?: No Was the Patient Intubated?: No Was the Patient Placed on a Ventilator?: No - Medication Medications Administered During SANFORIZER: Ativan 1 mg IV once - Diagnostic Test Ordered EKG: Yes (NSR, no ST-T changes) CT Scan: Yes (head CT stat) CPR started during SANFORIZER?: No - [place] Coma Scale Coma Scale Motor: Movement to pain stimulus Coma Scale Verbal: No response - Time SANFORIZER Ended Time SANFORIZER Ended: 12:05 - Vital Signs at end of SANFORIZER Vital Signs at end of SANFORIZER: BP 138/57 mmHg, HR 64, O2 sat 97% in 2L O2 via nasal cannula, Temp 98.8 F - Recommendations SANFORIZER Level of Care Recommendations: Transfer to ICU Notifications: Consultations (Neurologist Dr. Boykin notified) I.Reason for SANFORIZER - A) Acute Change in Patient: (Select all that apply): Staff member or family is worried about patient, Acute change in mental status (lethargic, upper extremity rigidity at wrist) Subjective: SANFORIZER called by nurse for AMS/lethargy, rigidity of upper extremities/wrists on 77 yr old F with hx of subacute ischemic strokes on CT, Afib on Eliquis 2.5 mg PO BID and Aspirin, hx of intermittent episodes of lethargy. During SANFORIZER, patients vitals remained stable, she was nonverbal, responsive only to painful stimuli, pupils were equally reactive to light. 1 mg Ativan IV was given once. Code stroke was called, patient was sent for stat CT head and transferred to ICU. - Neurological Status (Select all that apply): Lethargic - Respiratory Oxygen Delivery Method: Nasal Cannula @L/min (2)
[2018-01-16] MEDS ORDERED: Nicardipine 20 MG/200 ML 20 MG/200 ML BAG IV SCH (13:48)
[2018-01-16 13:50] LABS: HEMOGLOBIN 12.9 g/dL (12.0-16.0); MEAN CELL VOLUME 91.2 fl (81.0-99.0); MEAN CORPUSCULAR HGB CONC 32.9 g/dL (33.0-37.0); RBC 4.3 Mil/uL (3.80-5.20); RED CELL DISTRIBUTION WIDTH 14.4 % (11.5-14.5); WHITE BLOOD COUNT 7.9 K/uL (4.8-10.8)
[2018-01-16 13:54] LABS: INR 1.3; PROTHROMBIN TIME 14.5 Seconds (9.8-13.1)
[2018-01-16 13:56] LABS: PARTIAL THROMBOPLASTIN TIME 28.2 Seconds (25.6-37.1)
[2018-01-16 14:01] LABS: CALCIUM 8.6 mg/dL (8.4-10.2)
[2018-01-16] MEDS: Sodium Chloride 0.9% 1,000 ML IV SCH (14:13)
--- NOTE | 2018-01-16 15:25 | CP.PCM.PN ---
Subjective - Date & Time of Evaluation Date of Evaluation: 01/16/18 Time of Evaluation: 14:00 - Subjective Subjective: Mrs. Mcmanus was seen and examined today in the ICU with her family present. She had an IMPORT EXPORT AGENT due to worsening mental function. STAT CT scan of the head was done and showed a tiny area of possible hemorrhage. She was recently started on anticoagulation due to multiple ischemic strokes likely due to atrial fibrillation and cardio-embolic etiology. I discussed with the family at length the complicated situation with preventing further ischemic strokes (requires anticoagulation), seizures, brain edema, and avoiding hemorrhagic transformation. They understand that their mother is in critical condition and that is why she required ICU admission. Objective - Vital Signs/Intake and Output Vital Signs (last 24 hours): Temp Pulse Resp BP Pulse Ox 98.5 F 70 18 138/57 L 98 01/16/18 12:00 01/16/18 12:00 01/16/18 12:00 01/16/18 12:00 01/16/18 12:00 - Medications Medications: Current Medications Acetaminophen/Butalbital/Caffeine (Fioricet) 1 tab PO Q6 PRN PRN Reason: Headache Last Admin: 01/13/18 22:05 Dose: 1 tab Amantadine HCl (Amantadine 100 Mg Cap) 100 mg PO BID [facility] Last Admin: 01/16/18 10:17 Dose: 100 mg Atorvastatin Calcium (Lipitor) 20 mg PO HS [facility] Last Admin: 01/15/18 21:19 Dose: 20 mg Carvedilol (Coreg) 6.25 mg PO Q12 [facility] Last Admin: 01/15/18 10:08 Dose: 6.25 mg Nicardipine HCl (Cardene Iv Premix) 20 mg in 200 mls @ 50 mls/hr IV .Q4H [facility]; 5 MG/HR PRN Reason: Protocol Sodium Chloride (Sodium Chloride 0.9%) 1,000 mls @ 60 mls/hr IV .[id number] [facility] Stop: 01/17/18 13:55 Last Admin: 01/16/18 14:13 Dose: 60 mls/hr Lamotrigine (Lamictal) 100 mg PO DAILY [facility] Last Admin: 01/16/18 10:19 Dose: 100 mg Levothyroxine Sodium (Synthroid) 25 mcg PO DAILY@0630 [facility] Lorazepam (Ativan) 1 mg PO Q6 PRN PRN Reason: Anxiety Last Admin: 01/12/18 20:58 Dose: 1 mg Lorazepam (Ativan) 1 mg IVP Q12 PRN PRN Reason: Agitation Oxycodone/Acetaminophen (Percocet 5/325 Mg Tab) 1 tab PO Q6 PRN PRN Reason: Pain, severe (8-10) Stop: 01/17/18 21:15 Last Admin: 01/15/18 14:00 Dose: 1 tab Pantoprazole Sodium (Protonix Inj) 40 mg IVP DAILY [facility] Prednisolone Acetate (Pred Forte 1% Opht Susp) 1 drop OD DAILY [facility] Last Admin: 01/16/18 10:19 Dose: 1 drop Valproate Sodium (Depakene Oral Soln) 500 mg PO BID [facility] - Labs Labs: 01/16/18 13:35 01/16/18 13:35 PT 14.5 Seconds (9.8-13.1) H 01/16/18 13:35 INR 1.3 01/16/18 13:35 APTT 28.2 Seconds (25.6-37.1) 01/16/18 13:35 - Neurological Exam Additional comments: Awake, but not alert. Complains of headache, and does not follow commands. Moves all extremities spontaneously. Does not open eyes to command. Assessment and Plan (1) Seizure Assessment & Plan: Will continue current AEDs Status: Chronic (2) Headache Assessment & Plan: Likely due to edema from the ischemic strokes. Will start decadron 10 mg Q12 and repeat CT head in 6 hours Status: Acute (3) Ischemic stroke Assessment & Plan: There may be some slight hemorrhagic transformation. We will hold anticoagulation for now and repeat CT head for further evaluation. Status: Acute
[2018-01-16] MEDS ORDERED: Acetaminophen 650mg/20.3ml solution UD PO PRN (16:47)
[2018-01-16] MEDS: Valproic Acid 250 mg/5 ml UD Cup PO SCH (16:59)
--- NOTE | 2018-01-16 17:02 | CARD ---
APPROVED REPORT Date of service: 01/16/2018 <Conclusion> Normal sinus rhythm Right bundle branch block Abnormal ECG
--- NOTE | 2018-01-16 18:48 | CP.CCUPN ---
CCU Subjective - Physician Review Subjective (Free Text): 77 F admitted 6 days ago to Telemetry unit for AMS and CVA, PMH: chronic A fib on DOACs, HTN, Hyperlipidemia, seizure disorder, h/o L-THR; `bed-bound at home: underwent BOILER BLOWER eval for new AMS, Code Stroke called and CT Brain showed new, small punctate cortical hemorrhage seen at the left frontal vertex; subacute CVA seen in left parietal lobe area with new extension anteriorly and inferiorly into the left parietal lobe area. No midline shift described. Presently awake and somewhat responsive to simple commands, nonverbal and moaning at times, able to move and withdraw all extremities. Other vitals and I/O's reviewed. No fever spikes overnight. Does not appear distressed. ROS: No other pertinent negs or positives on 10+ system review obtainable due non-verbal status now. PMSFH: All other Nursing and physician documentation reviewed to date; no new pertinent info noted relevant to current medical problems. Allergies: NKDA Home Meds: Pradaxa, Lamictal, Ativan, PredForte eye gtts EXAM- HEENT: no icterus, no gaze preference, Pupils 3 mm and reactive, GAG present but weak. no facial asymmetry, NECK: No JVD visible, supple, carotids equal upstroke bilat/no bruits CHEST: decreased BS bases, no wheezes audible HEART: Irregular, distant, tachy S1S2, no rubs or murmurs ABD: soft, no distention, no tympany, no palp tenderness, BS hypoactive EXT: Trace edema; no peripheral/ digital cyanosis, no calf tenderness or palpable cords, distal pulses intact and symmetrical. NEURO: withdraws x 4 limbs to pain. SKIN: no rashes, warm and dry. LABS: WBC= 7.9 HGB= 12.9 PLTs= 73K INR= 1.3 Fib= 158 Bw=113 K= 3.7 QI=428 HCO3= 27 BUN/Cr= 20/1.3 BS= 90 IMPRESSION / MAJOR PROBLEMS NOW: 1. Acute CVA with new ICH versus Hemorrhagic Stroke conversion 2. Uncontrolled / Accelerated HTN 3. Mild Azotemia / Dehydration 4. Thrombocytopenia PLAN: 1. Keep SBP 140-150; Nicardipine ordered. Too bradycardic for labetalol. 2. Neurochecks Q1H, seizure precautions, Elevate HOB 45 degrees 3. Repeat Brain imaging over the next 5-6 hours. 4. Cautious resumption of BZDPs for agitation prn and prevent withdrawal. 5. IVF hydration with NSS 6. Check Coags, Fibrinogen. Unclear medication related, versus other coagulopathy. Repeat CBC, may need platelet transfusion, consider Hematology eval.
[2018-01-17] MEDS: Sodium Chloride 0.9% 1,000 ML IV SCH (05:21)
[2018-01-17 06:07] LABS: HEMOGLOBIN 11.7 g/dL (12.0-16.0); MEAN CELL VOLUME 91.2 fl (81.0-99.0); MEAN CORPUSCULAR HEMOGLOBIN 30.3 pg (27.0-31.0); MEAN CORPUSCULAR HGB CONC 33.2 g/dL (33.0-37.0); RBC 3.88 Mil/uL (3.80-5.20); RED CELL DISTRIBUTION WIDTH 14.2 % (11.5-14.5); WHITE BLOOD COUNT 7.7 K/uL (4.8-10.8)
[2018-01-17 06:20] LABS: INR 1.3; PROTHROMBIN TIME 14.8 Seconds (9.8-13.1)
[2018-01-17 06:22] LABS: CALCIUM 8.1 mg/dL (8.4-10.2)
[2018-01-17] MEDS: Levothyroxine 25 MCG TAB PO SCH (06:47)
--- NOTE | 2018-01-17 09:15 | CT ---
Date of service: 01/16/2018 PROCEDURE: CT HEAD WITHOUT CONTRAST. HISTORY: f/u [facility] COMPARISON: TECHNIQUE: Axial computed tomography images were obtained through the head/brain without intravenous contrast. Radiation dose: Total exam DLP = mGy-cm. This CT exam was performed using one or more of the following dose reduction techniques: Automated exposure control, adjustment of the mA and/or kV according to patient size, and/or use of iterative reconstruction technique. FINDINGS: HEMORRHAGE: Stable punctate focus of cortical hemorrhage in the left frontal vertex. BRAIN: No mass effect or edema. Increased demarcation of an acute left parietal temporal infarct. Diffuse cerebral atrophy. Chronic microvascular ischemic disease. VENTRICLES: Unremarkable. No hydrocephalus. CALVARIUM: Unremarkable. PARANASAL SINUSES: Unremarkable as visualized. No significant inflammatory changes. MASTOID AIR CELLS: Unremarkable as visualized. No inflammatory changes. OTHER FINDINGS: None. IMPRESSION: Increased demarcation of an acute left parietal temporal infarct. Diffuse cerebral atrophy. Chronic microvascular ischemic disease.
[2018-01-17] MEDS: Valproic Acid 250 mg/5 ml UD Cup PO SCH ×2 (09:17→18:02)
[2018-01-17] MEDS: PrednisoLONE 1% OPTH SUSP OD SCH (09:18)
--- NOTE | 2018-01-17 12:00 | MRI ---
Date of service: 01/17/2018 PROCEDURE: MRI BRAIN WITHOUT CONTRAST HISTORY: cva COMPARISON: CT scan dated 01/16/2018 TECHNIQUE: Multiplanar, multisequence MR images of the brain were obtained without intravenous contrast enhancement. FINDINGS: HEMORRHAGE: None DWI: Large acute left posterior cerebral artery distribution infarct with diffuse abnormal diffusion signal throughout the left parietal lobe, posterior temporal lobe and medial portion of the left occipital lobe. Large patchy areas of diffusion signal abnormality in the right cerebellar hemisphere as well as in the left cerebellar hemisphere to a lesser extent. Multiple scattered areas of diffusion signal abnormality in the frontal convexities and parietal convexities bilaterally, as well as in the deep right centrum semiovale. BRAIN PARENCHYMA: No mass effect or edema. No atrophy or chronic microvascular ischemic changes. VENTRICLES: Unremarkable. No hydrocephalus. CRANIUM: Unremarkable. ORBITS: Grossly unremarkable. PARANASAL SINUSES/MASTOIDS: Clear VASCULAR SYSTEM: Skull base flow voids intact. OTHER FINDINGS: None. IMPRESSION: Large acute left posterior cerebral artery distribution infarct with diffuse abnormal diffusion signal throughout the left parietal lobe, posterior temporal lobe and medial portion of the left occipital lobe. Large patchy areas of diffusion signal abnormality in the right cerebellar hemisphere as well as in the left cerebellar hemisphere to a lesser extent. Multiple scattered areas of diffusion signal abnormality in the frontal convexities and parietal convexities bilaterally, as well as in the deep right centrum semiovale. Findings compatible with numerous bilateral acute infarctions; correlate clinically for embolic phenomenon.
--- NOTE | 2018-01-17 14:57 | PN ---
Copied To: Felice Al MD Attending MD: Felice Al MD DATE: 01/17/2018 SUBJECTIVE: The patient seen and examined. Interim events noted. The patient had CREW MEMBER for altered mental status and was transferred to intensive care unit. The patient was also found to have new intracranial hemorrhage and possible extension of old stroke. The patient remains obtunded and not able to provide informative history or review of systems. PHYSICAL EXAMINATION: GENERAL: The patient is in intensive care unit and remains obtunded but no acute respiratory distress. VITAL SIGNS: Stable. HEART: S1 and S2. Normal and regular. LUNGS: Good bilateral air exchange. ABDOMEN: Soft, nontender. EXTREMITIES: No calf swelling. No tenderness. No acute ischemia. SLEEP TECH: The patient does show signs of left-sided contracture. Does move all extremities, but left extremity movement is noted to be much less, although a thorough SLEEP TECH exam is not possible due to the patient's condition and uncooperation. DIAGNOSTIC DATA: Available diagnostic data reviewed. Telemetry monitoring does not reveal significant arrhythmias. The patient's CAT scan did reveal intracranial hemorrhage and acute CVA. ASSESSMENT AND PLAN: Overall, the patient's general medical condition is critical due to new stroke. Long-term functional prognosis remains poor. Plan as ordered. Felice Al MD
[2018-01-17] MEDS ORDERED: Enoxaparin 60 mg Syringe SC SCH (16:00)
--- NOTE | 2018-01-17 16:26 | CP.PCM.PN ---
Subjective - Date & Time of Evaluation Date of Evaluation: 01/17/18 Time of Evaluation: 16:22 - Subjective Subjective: Mrs. Mcmanus was seen and examined at bedside today in the ICU. She continues to exhibit lethargy, confusion and agitation. MRI was done and showed multiple bilateral ischemic strokes involving the anterior and posterior circulation, likely of embolic origin. There was no evidence of hemorrhage. Lovenox was resumed. Objective - Vital Signs/Intake and Output Vital Signs (last 24 hours): Temp Pulse Resp BP Pulse Ox 98.2 F 56 L 24 114/44 L 99 01/17/18 12:00 01/17/18 14:00 01/17/18 14:00 01/17/18 14:00 01/17/18 14:00 - Medications Medications: Current Medications Acetaminophen (Tylenol 650mg/20.3ml Solution Ud) 650 mg PO Q6 PRN PRN Reason: Pain, moderate (4-7) Last Admin: 01/16/18 17:00 Dose: 650 mg Acetaminophen/Butalbital/Caffeine (Fioricet) 1 tab PO Q6 PRN PRN Reason: Headache Last Admin: 01/13/18 22:05 Dose: 1 tab Amantadine HCl (Amantadine 100 Mg Cap) 100 mg PO BID [facility] Last Admin: 01/17/18 09:16 Dose: Not Given Atorvastatin Calcium (Lipitor) 20 mg PO HS [facility] Last Admin: 01/15/18 21:19 Dose: 20 mg Carvedilol (Coreg) 6.25 mg PO Q12 GEMA Last Admin: 01/15/18 10:08 Dose: 6.25 mg Dexamethasone (Decadron Inj) 10 mg IV Q12H GEMA Enoxaparin Sodium (Lovenox) 60 mg SC Q12 GEMA PRN Reason: Protocol Nicardipine HCl (Cardene Iv Premix) 20 mg in 200 mls @ 50 mls/hr IV .Q4H GEMA; 5 MG/HR PRN Reason: Protocol Last Admin: 01/16/18 16:00 Dose: 5 mg/hr, 50 mls/hr Lamotrigine (Lamictal) 100 mg PO DAILY [facility] Last Admin: 01/17/18 09:17 Dose: Not Given Levothyroxine Sodium (Synthroid) 25 mcg PO DAILY@0630 [facility] Last Admin: 01/17/18 06:47 Dose: Not Given Lorazepam (Ativan) 1 mg PO Q6 PRN PRN Reason: Anxiety Last Admin: 01/12/18 20:58 Dose: 1 mg Lorazepam (Ativan) 1 mg IVP Q12 PRN PRN Reason: Agitation Last Admin: 01/16/18 18:31 Dose: 1 mg Oxycodone/Acetaminophen (Percocet 5/325 Mg Tab) 1 tab PO Q6 PRN PRN Reason: Pain, severe (8-10) Stop: 01/17/18 21:15 Last Admin: 01/15/18 14:00 Dose: 1 tab Pantoprazole Sodium (Protonix Inj) 40 mg IVP DAILY [facility] Last Admin: 01/17/18 09:18 Dose: 40 mg Prednisolone Acetate (Pred Forte 1% Opht Susp) 1 drop OD DAILY [facility] Last Admin: 01/17/18 09:18 Dose: 1 drop Valproate Sodium (Depakene Oral Soln) 500 mg PO BID [facility] Last Admin: 01/17/18 09:17 Dose: Not Given - Labs Labs: 01/17/18 04:18 01/17/18 04:18 PT 14.8 Seconds (9.8-13.1) H 01/17/18 04:18 INR 1.3 01/17/18 04:18 APTT 28.2 Seconds (25.6-37.1) 01/16/18 13:35 - Neurological Exam Additional comments: Neurologically unchanged compared with previous examination. Assessment and Plan (1) Seizure Assessment & Plan: Continue current AEDs. Status: Chronic (2) Headache Assessment & Plan: Started decadron for the vasogenic edema that could be contributing to the headaches. Status: Acute (3) Ischemic stroke Assessment & Plan: Likely embolic. May be due to aortic arch disease, or could be cardioembolic. VLAD is recommended. Will resume therapeutic lovenox for atrial fibrillation since the patient is unable to swallow due to mental status suppression. This was discussed with cardiology. Status: Acute
[2018-01-17] MEDS ORDERED: Chlorhexidine Gluconate 1 APPL/PKT TP ONE (17:47)
[2018-01-17] MEDS ORDERED: Dexamethasone 10 MG in Sodium Chloride 0.9% 50 ML IVPB SCH (21:00)
--- NOTE | 2018-01-17 21:46 | CP.PCM.PCO ---
Physician Communication Note - Physician Communication Note Physician Communication Note: DNR request by family.
[2018-01-17] MEDS: Enoxaparin 30 mg Syringe SC SCH (22:31)
[2018-01-18 05:29] LABS: HEMOGLOBIN 12.3 g/dL (12.0-16.0); MEAN CELL VOLUME 91.9 fl (81.0-99.0); MEAN CORPUSCULAR HEMOGLOBIN 29.7 pg (27.0-31.0); MEAN CORPUSCULAR HGB CONC 32.3 g/dL (33.0-37.0); RBC 4.13 Mil/uL (3.80-5.20); RED CELL DISTRIBUTION WIDTH 14.5 % (11.5-14.5); WHITE BLOOD COUNT 10.6 K/uL (4.8-10.8)
[2018-01-18 05:47] LABS: ALB/GLOB RATIO 0.9 (1.0-2.1); CALCIUM 8.3 mg/dL (8.4-10.2)
[2018-01-18] MEDS: Levothyroxine 25 MCG TAB PO SCH (06:30)
[2018-01-18] MEDS ORDERED: Chlorhexidine Gluconate 1 APPL/PKT TP ONE ×2 (06:33→06:41)
[2018-01-18] MEDS: Valproic Acid 250 mg/5 ml UD Cup PO SCH ×2 (09:05→16:16)
[2018-01-18] MEDS: PrednisoLONE 1% OPTH SUSP OD SCH (09:27)
[2018-01-18] MEDS: Enoxaparin 30 mg Syringe SC SCH (10:35)
--- NOTE | 2018-01-18 12:08 | PN ---
Copied To: Felice Al MD Attending MD: Felice Al MD DATE: 01/18/2018 SUBJECTIVE: The patient is seen and examined. Interim events noted. Consults noted and appreciated. Neurology interventions noted and appreciated. The patient remains in intensive care unit. The patient is noncommunicative, not able to provide informative history and review of systems. No specific issue reported by the nursing staff other than pulling out the NG tube. PHYSICAL EXAMINATION: GENERAL: The patient is in no acute distress. VITAL SIGNS: Stable. HEART: S1 and S2. Normal and regular. LUNGS: Good bilateral air exchange. ABDOMEN: Soft and nontender. EXTREMITIES: No calf swelling. No tenderness. No acute ischemia. The patient does have some contracture, which can be straightened now, but then again the patient goes into the same position. 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 The patient does have questionable decorticate signs on the left side. DIAGNOSTIC DATA: Available diagnostic data reviewed. Telemetry monitoring does not reveal significant arrhythmia. ASSESSMENT AND PLAN: Overall, the patient's general medical condition is stable. Plan as ordered. Felice Al MD
--- NOTE | 2018-01-18 13:23 | CP.PCM.PN ---
Subjective - Date & Time of Evaluation Date of Evaluation: 01/18/18 Time of Evaluation: 13:21 - Subjective Subjective: very lethargic pt made DNR/DNI by family Objective - Vital Signs/Intake and Output Vital Signs (last 24 hours): Temp Pulse Resp BP Pulse Ox 98.7 F 54 L 20 112/52 L 96 01/18/18 12:00 01/18/18 12:00 01/18/18 12:00 01/18/18 12:00 01/18/18 12:00 - Medications Medications: Current Medications Acetaminophen (Tylenol 650mg/20.3ml Solution Ud) 650 mg PO Q6 PRN PRN Reason: Pain, moderate (4-7) Last Admin: 01/16/18 17:00 Dose: 650 mg Acetaminophen/Butalbital/Caffeine (Fioricet) 1 tab PO Q6 PRN PRN Reason: Headache Last Admin: 01/13/18 22:05 Dose: 1 tab Aspirin (Aspirin Supp) 300 mg [place] DAILY [facility] Last Admin: 01/18/18 09:48 Dose: 300 mg Atorvastatin Calcium (Lipitor) 20 mg PO HS [facility] Last Admin: 01/15/18 21:19 Dose: 20 mg Carvedilol (Coreg) 6.25 mg PO Q12 GEMA Last Admin: 01/15/18 10:08 Dose: 6.25 mg Dexamethasone (Decadron Inj) 10 mg IV Q12H [facility] Last Admin: 01/18/18 04:38 Dose: 10 mg Enoxaparin Sodium (Lovenox) 30 mg SC Q12 GEMA PRN Reason: Protocol Last Admin: 01/18/18 10:35 Dose: Not Given Nicardipine HCl (Cardene Iv Premix) 20 mg in 200 mls @ 50 mls/hr IV .Q4H GEMA; 5 MG/HR PRN Reason: Protocol Last Admin: 01/16/18 16:00 Dose: 5 mg/hr, 50 mls/hr Lamotrigine (Lamictal) 100 mg PO DAILY [facility] Last Admin: 01/18/18 09:05 Dose: Not Given Levothyroxine Sodium (Synthroid) 25 mcg PO DAILY@0630 [facility] Last Admin: 01/17/18 06:47 Dose: Not Given Lorazepam (Ativan) 1 mg PO Q6 PRN PRN Reason: Anxiety Last Admin: 01/12/18 20:58 Dose: 1 mg Lorazepam (Ativan) 1 mg IVP Q12 PRN PRN Reason: Agitation Last Admin: 01/18/18 06:58 Dose: 1 mg Pantoprazole Sodium (Protonix Inj) 40 mg IVP DAILY [facility] Last Admin: 01/18/18 09:27 Dose: 40 mg Prednisolone Acetate (Pred Forte 1% Opht Susp) 1 drop OD DAILY [facility] Last Admin: 01/18/18 09:27 Dose: 1 drop Valproate Sodium (Depakene Oral Soln) 500 mg PO BID [facility] Last Admin: 01/18/18 09:05 Dose: Not Given - Labs Labs: 01/18/18 04:12 01/18/18 04:12 PT 14.8 Seconds (9.8-13.1) H 01/17/18 04:18 INR 1.3 01/17/18 04:18 APTT 28.2 Seconds (25.6-37.1) 01/16/18 13:35 - Constitutional Appears: Toxic, In Acute Distress - Head Exam Head Exam: ATRAUMATIC, NORMAL INSPECTION, NORMOCEPHALIC - Eye Exam Eye Exam: EOMI, Normal appearance, PERRL Pupil Exam: NORMAL ACCOMODATION, PERRL - ENT Exam ENT Exam: Mucous Membranes Moist, Normal Exam - Neck Exam Neck Exam: Full ROM, Normal Inspection. absent: Lymphadenopathy - Respiratory Exam Respiratory Exam: Clear to Ausculation Bilateral, NORMAL BREATHING PATTERN - Cardiovascular Exam Cardiovascular Exam: REGULAR RHYTHM, +S1, +S2. absent: Murmur - GI/Abdominal Exam GI & Abdominal Exam: Soft, Normal Bowel Sounds. absent: Tenderness - Extremities Exam Extremities Exam: Full ROM, Normal Capillary Refill, Normal Inspection. absent : Joint Swelling, Pedal Edema - Back Exam Back Exam: NORMAL INSPECTION - Neurological Exam Neurological Exam: Altered - Skin Skin Exam: Dry, Intact, Normal Color, Warm Assessment and Plan (1) Mental status change Assessment & Plan: 2' to CVA with hemorrhagic conversion ? thromboembolic DNR/DNI awaiting neurological recovery Status: Acute (2) Elevated troponin Assessment & Plan: etiology ? CAD cont asa, statins cont coreg Status: Acute (3) Dizziness Status: Acute (4) Atrial fibrillation Assessment & Plan: AC on hold 2' to hemorrhagic conversion Status: Acute (5) HTN (hypertension) Status: Acute
[2018-01-18] MEDS ORDERED: Magnesium Sulfate 1 GM in Dextrose 5% In Water 100 ML IVPB PRN (18:30)
--- NOTE | 2018-01-18 20:44 | PN ---
Copied To: Hunter Mane MD Attending MD: Hunter Mane MD DATE: 01/18/2018 CRITICAL CARE PROGRESS NOTE LOCATIONS: Patient in ICU, bed 421. TIME SPENT: 35 minutes. SUBJECTIVE: Patient is seen, evaluated at the bedside. Past medical, surgical, social, and family history reviewed. A 77-year-old female with history significant for chronic atrial fibrillation, hypertension, hyperlipidemia, seizure disorder, status post left total hip replacement, bed bound, admitted with multiple bilateral ischemic infarcts involving anterior and posterior circulation, status post G[employer] TORCH [employer]ER. The CT head showed suspicious hemorrhagic transformation; however, the repeat MRI revealed no hemorrhage. Started on Lovenox, reduced because of the persistent thrombocytopenia this morning as the thrombocytopenia worsened. Discussed with Neurology consult. Discontinued Lovenox and started on aspirin. Remains lethargic, and at times, confused, agitated. Pulled out the NG tube inserted yesterday. Patient received Ativan early this morning for agitation, now remains lethargic, responds to sternal rub by facial grimacing and moves her extremities. No stridor. . PHYSICAL EXAMINATION: VITAL SIGNS: Temperature 98.7, heart rate 78, blood pressure 160/56, respiratory rate 17, oxygen saturation 99%. HEAD, EYES, EARS, NOSE AND THROAT: Pupils are reactive, 2 to 3 mm. Corneal reflex present. Conjunctival reflex present. Gag reflex present. NECK: Supple. CHEST: Bilateral breath sounds. Clear to auscultation. HEART: Rhythm irregular. No audible murmur. ABDOMEN: Bowel sounds present. Soft. EXTREMITIES: Without clubbing. Moves all four extremities to sternal rub. CURRENT MEDICATIONS: Include Tylenol 650 every 6 hours p.r.n., Fioricet 1 tablet every 6 hours p.r.n., amantadine 100 mg p.o. b.i.d. on hold due to lack of access, aspirin 300 mg rectally, Lipitor 20 mg daily, Coreg 6.25 mg every 12 hours, Decadron 10 mg IV every 12 hours, Lovenox on hold, Lamictal 100 mg p.o. daily on hold, Synthroid 25 mcg on hold, Ativan 1 mg p.o. every 6 hours p.r.n., nicardipine drip to maintain systolic pressure 140 to 160, Protonix 40 IV daily, prednisolone acetate ([place]) 1% ophthalmic suspension 1 drop daily, Depakote 500 mg p.o. b.i.d. on hold, switching to IV. LABORATORY DATA: WBC 10.6, hemoglobin 12.3, hematocrit 38, and platelet count 32. PT 14.8, INR 1.3. SMA-7; sodium 145, potassium 4, chloride 111, CO2 of 23, blood urea nitrogen 20, creatinine 1.2, random glucose 111, calcium 8.3, total bilirubin 0.8, AST 63, ALT 36, total protein 6.3, and albumin 3. TSH 13.5, thyroxine 4.17. Microbiology, urine culture, gram-negative rods, but less than 10,000 colonies. IMPRESSION: A 77-year-old female, status post bilateral multiple infarcts involving anterior and posterior circulation, likely embolic in origin. Anticoagulation on hold secondary to significant thrombocytopenia, started on aspirin. Hematology evaluation for thrombocytopenia. 1. Pulmonary: Stable. 2. Cardiac: Atrial fibrillation with embolic events. Anticoagulation cannot be continued due to significant thrombocytopenia. 3. Gastrointestinal: Nasogastric tube pulled out by the patient. Reinsertion noted with bleeding from the nose. Hold the nasogastric tube insertion secondary to significant thrombocytopenia. 4. Renal: No acute issues noted. 5. Endocrinology: Maintain blood sugar less than 180. Continue Cardene drip to maintain systolic pressure 140 to 160. Patient is currently do not resuscitate/do not intubate as per family wishes and in place. Hunter Mane MD [email or web address]
[2018-01-18] MEDS: Valproate 500 MG in Sodium Chloride 0.9% 100 ML IVPB SCH (21:20)
[2018-01-19 05:42] LABS: HEMOGLOBIN 11.7 g/dL (12.0-16.0); MEAN CELL VOLUME 91.9 fl (81.0-99.0); MEAN CORPUSCULAR HGB CONC 32.6 g/dL (33.0-37.0); RBC 3.9 Mil/uL (3.80-5.20); RED CELL DISTRIBUTION WIDTH 14.6 % (11.5-14.5); WHITE BLOOD COUNT 12.8 K/uL (4.8-10.8)
[2018-01-19 05:56] LABS: ALB/GLOB RATIO 0.9 (1.0-2.1); CALCIUM 8.4 mg/dL (8.4-10.2)
[2018-01-19] MEDS: Levothyroxine 25 MCG TAB PO SCH (06:20)
--- NOTE | 2018-01-19 07:48 | CP.CCUPN ---
CCU Subjective - Physician Review Events Since Last Encounter (Free Text): 01/19/18 09:40 The patient was Seen and examined by me at the bedside during ICU round, Medical records reviewed and Management issues were discussed and formulated with the house staff. Events reviewed Ms. Mcmanus is a 77 year old female with a past medical history of hypertension, hypercholesterolemia, migraine headaches, complex partial seizures and atrial fibrillation (was on eliquis, now on Lovenox), who was initially brought to the ED by son for evaluation of persistent and progressive weakness and fatigue associated with difficulty arousing patient. Pt currently in ICU for management of Acute CVA with new ICH versus Hemorrhagic conversion She is awake but very confused, restless, crying, not communicating, does not follows commands She was started on PRN Ativan for restlessness and agitation. I give extra 0.5 mg IV Ativan this morning, she is slightly more calm now Seizure free, latest valproic level is 38.6. Breathing unlabored, on room air O2 sat 100%. Patient is a DNR/ DNI. Critical Care Time Spent (in minutes): 32 CCU Objective - Vital Signs / Intake & Output Vital Signs (Last 4 hours): Vital Signs Pulse Resp BP Pulse Ox 01/19/18 06:00 79 17 169/70 H 96 01/19/18 04:00 90 18 120/75 95 - Physical Exam Physical Exam Limitations: Positive for: Altered Mental Status, Clinical Condition, Psychotic Head: Positive for: Atraumatic, Normocephalic Pupils: Positive for: PERRL. Negative for: Sluggish, Non-Reactive, Pinpoint Conjunctiva: Positive for: Normal. Negative for: Injected, Icteric Neck: Positive for: Normal Range of Motion, Trachea Midline. Negative for: Meningeal Signs, MIDLINE TENDERNESS, Paraspinal Tenderness, JVD, Lymphadenopathy , Bruit, Other Respiratory/Chest: Positive for: Clear to Auscultation, Good Air Exchange. Negative for: Respiratory Distress, Accessory Muscle Use, Wheezes, Decreased Breath Sounds, Rales, Retracting, Tachypneic Cardiovascular: Positive for: Irregular Rhythm, Peripheal Pulses Present. Negative for: Murmurs, Tachycardic, Bradycardic Abdomen: Positive for: Normal Bowel Sounds. Negative for: Tenderness, Distention, Peritoneal Signs Upper Extremity: Positive for: Normal Inspection. Negative for: Cyanosis, Edema Lower Extremity: Positive for: Normal Inspection. Negative for: Edema, CALF TENDERNESS Neurological: Negative for: GCS=15, CN II-XII Intact, Motor Func Grossly Intact Psychiatric: Positive for: Anxious, Agitated. Negative for: Alert, Oriented x 3 - Medications Active Medications: Active Medications Generic Name Dose Route Start Last Admin Trade Name Freq PRN Reason Stop Dose Admin Acetaminophen 650 mg 01/16/18 16:47 01/16/18 17:00 Tylenol 650mg/20.3ml Solution Ud PO 650 mg Q6 PRN Administration Pain, moderate (4-7) Acetaminophen/Butalbital/Caffeine 1 tab 01/12/18 03:01 01/13/18 22:05 Fioricet PO 1 tab Q6 PRN Administration Headache Aspirin 300 mg 01/18/18 09:30 01/18/18 09:48 Aspirin Supp ND 300 mg DAILY GEMA Administration Atorvastatin Calcium 20 mg 01/12/18 22:00 01/15/18 21:19 Lipitor PO 20 mg HS GEMA Administration Carvedilol 6.25 mg 01/13/18 09:00 01/15/18 10:08 Coreg PO 6.25 mg Q12 GEMA Administration Dexamethasone 10 mg 01/17/18 16:15 01/19/18 04:18 Decadron Inj IV 10 mg Q12H GEMA Administration Enoxaparin Sodium 30 mg 01/17/18 21:00 01/18/18 10:35 Lovenox SC Not Given Q12 GEMA Protocol Nicardipine HCl 20 mg in 200 mls @ 50 mls/hr 01/16/18 13:48 01/16/18 16:00 Cardene Iv Premix IV 5 mg/hr .Q4H GEMA 50 mls/hr Protocol Administration 5 MG/HR Valproate Sodium 500 mg/ 105 mls @ 100 mls/hr 01/18/18 21:00 01/18/18 21:20 Sodium Chloride IVPB 100 mls/hr Q12 GEMA Administration Magnesium Sulfate 1 gm/ 102 mls @ 204 mls/hr 01/18/18 18:30 01/18/18 22:34 Dextrose IVPB 204 mls/hr Q8 PRN Administration Neuropathic Pain level 4-7 1 GM/30 MIN Lamotrigine 100 mg 01/12/18 09:00 01/18/18 09:05 Lamictal PO Not Given DAILY GEMA Levothyroxine Sodium 25 mcg 01/17/18 06:30 01/19/18 06:20 Synthroid PO Not Given DAILY@0630 [facility] Lorazepam 1 mg 01/12/18 03:48 01/12/18 20:58 Ativan PO 1 mg Q6 PRN Administration Anxiety Lorazepam 1 mg 01/16/18 14:30 01/18/18 21:46 Ativan IVP 1 mg Q12 PRN Administration Agitation Pantoprazole Sodium 40 mg 01/16/18 14:00 01/18/18 09:27 Protonix Inj IVP 40 mg DAILY GEMA Administration Prednisolone Acetate 1 drop 01/13/18 16:15 01/18/18 09:27 Pred Forte 1% Opht Susp OD 1 drop DAILY GEMA Administration Valproate Sodium 500 mg 01/16/18 10:45 01/18/18 16:16 Depakene Oral Soln PO Not Given BID GEMA - Patient Studies Lab Studies: Lab Studies 01/19/18 01/19/18 01/19/18 Range/Units 04:20 04:20 04:20 WBC 12.8 H (4.8-10.8) K/uL RBC 3.90 (3.80-5.20) Mil/uL Hgb 11.7 L (12.0-16.0) g/dL Hct 35.8 (34.0-47.0) % MCV 91.9 (81.0-99.0) fl MCH 30.0 (27.0-31.0) pg MCHC 32.6 L (33.0-37.0) g/dL RDW 14.6 H (11.5-14.5) % Plt Count 32 L (130-400) K/uL Sodium 146 (132-148) mmol/l Potassium 3.8 (3.6-5.0) MMOL/L Chloride 114 H (98-107) mmol/L Carbon Dioxide 23 (22-30) mmol/L Anion Gap 13 (10-20) BUN 30 H (7-17) mg/dl Creatinine 1.2 (0.7-1.2) mg/dl Est GFR ( Amer) 53 Est GFR (Non-Af Amer) 44 Random Glucose 146 H (65-105) mg/dL Calcium 8.4 (8.4-10.2) mg/dL Magnesium 2.4 H (1.6-2.3) MG/DL Total Bilirubin 0.8 (0.2-1.3) mg/dl AST 45 H D (14-36) U/L ALT 24 (9-52) U/L Alkaline Phosphatase 67 (38-126) U/L Total Protein 6.4 (6.3-8.2) G/DL Albumin 3.0 L (3.5-5.0) g/dL Globulin 3.4 (2.2-3.9) gm/dL Albumin/Globulin Ratio 0.9 L (1.0-2.1) Valproic Acid (50.0-100.0) ug/mL 01/18/18 Range/Units 20:00 WBC (4.8-10.8) K/uL RBC (3.80-5.20) Mil/uL Hgb (12.0-16.0) g/dL Hct (34.0-47.0) % MCV (81.0-99.0) fl MCH (27.0-31.0) pg MCHC (33.0-37.0) g/dL RDW (11.5-14.5) % Plt Count (130-400) K/uL Sodium (132-148) mmol/l Potassium (3.6-5.0) MMOL/L Chloride (98-107) mmol/L Carbon Dioxide (22-30) mmol/L Anion Gap (10-20) BUN (7-17) mg/dl Creatinine (0.7-1.2) mg/dl Est GFR ( Amer) Est GFR (Non-Af Amer) Random Glucose (65-105) mg/dL Calcium (8.4-10.2) mg/dL Magnesium (1.6-2.3) MG/DL Total Bilirubin (0.2-1.3) mg/dl AST (14-36) U/L ALT (9-52) U/L Alkaline Phosphatase (38-126) U/L Total Protein (6.3-8.2) G/DL Albumin (3.5-5.0) g/dL Globulin (2.2-3.9) gm/dL Albumin/Globulin Ratio (1.0-2.1) Valproic Acid 25.2 L (50.0-100.0) ug/mL Laboratory Results - last 24 hr 01/18/18 01/19/18 01/19/18 20:00 04:20 04:20 WBC 12.8 H RBC 3.90 Hgb 11.7 L Hct 35.8 MCV 91.9 MCH 30.0 MCHC 32.6 L RDW 14.6 H Plt Count 32 L Sodium 146 Potassium 3.8 Chloride 114 H Carbon Dioxide 23 Anion Gap 13 BUN 30 H Creatinine 1.2 Est GFR ( Amer) 53 Est GFR (Non-Af Amer) 44 Random Glucose 146 H Calcium 8.4 Magnesium Total Bilirubin 0.8 AST 45 H D ALT 24 Alkaline Phosphatase 67 Total Protein 6.4 Albumin 3.0 L Globulin 3.4 Albumin/Globulin Ratio 0.9 L Valproic Acid 25.2 L 01/19/18 04:20 WBC RBC Hgb Hct MCV MCH MCHC RDW Plt Count Sodium Potassium Chloride Carbon Dioxide Anion Gap BUN Creatinine Est GFR ( Amer) Est GFR (Non-Af Amer) Random Glucose Calcium Magnesium 2.4 H Total Bilirubin AST ALT Alkaline Phosphatase Total Protein Albumin Globulin Albumin/Globulin Ratio Valproic Acid Review of Systems - Review of Systems Systems not reviewed;Unavailable: Altered Mental Status - Constitutional Constitutional: absent: Fever, Chills Critical Care Progress Note - Extremities/Vascular Does the Patient have a Central Venous Catheter?: No Does the Patient need a Central Venous Catheter?: No Does the Patient have a Motta Catheter?: No Does the Patient need a Motta Catheter?: No - Nutrition Nutrition: Nutrition Category Date Time Status NPO Diet [DIET] Diets 01/16/18 Lunch Active Assessment/Plan (1) Ischemic stroke Current Visit: Yes Status: Acute Priority: High Comment: Acute Ischemic stroke with Hemorrhagic conversion Likely embolic. Frequent Neuro check NPO Speech and swallow Re-evaluation PRN Ativan for agitations Maintain aspiration precautions Elevate HOB (2) Mental status change Current Visit: Yes Status: Acute Priority: High Comment: ORN Ativan Consider psych consult (3) Near syncope Current Visit: Yes Status: Acute Priority: High (4) Thrombocytopenia Current Visit: Yes Status: Acute Priority: High Comment: Plat count 32, stable from yesterday No evidance of acute bleed Patient was Lovenox on 30 mg SC Q12 (dose decreased), now on hold due to further drop in Plat count (5) Atrial fibrillation Current Visit: Yes Status: Acute Priority: High Comment: HR controlled Continue Coreg 6.25 mg PO Q12 Lovenox on hold due to further drop in Plat count (6) HTN (hypertension) Current Visit: No Status: Acute (7) Seizure Current Visit: Yes Status: Chronic Priority: High Comment: Continue Lamotrigine (Lamictal) 100 mg PO DAILY Valproate Sodium 500 mg IVPB Q12 GEMA Will give Extra Valproate Sodium 1,000 mg IVPB ONCE (8) Prophylactic measure Current Visit: Yes Status: Acute Priority: High Comment: Lovenox 60 mg SC Q12 GEMA Pantoprazole Sodium (Protonix Inj) 40 mg IVP DAILY G[facility]
--- NOTE | 2018-01-19 09:20 | CP.PCM.PN ---
Subjective - Date & Time of Evaluation Date of Evaluation: 01/19/18 Time of Evaluation: :18 - Subjective Subjective: Ms. Mcmanus was seen and examined at the bedside in ICU. She is restless, crying, would not participate during assessment. Withdraws to pain stimuli, however would not open her eyes. She has been receiving ativan IV for her restlessness and agitation. Her latest valproic level is 38.6. Patient is a DNR/ DNI. There was no untoward events overnight. Objective - Vital Signs/Intake and Output Vital Signs (last 24 hours): Temp Pulse Resp BP Pulse Ox 98.4 F 79 17 169/70 H 96 01/19/18 00:00 01/19/18 06:00 01/19/18 06:00 01/19/18 06:00 01/19/18 06:00 - Medications Medications: Current Medications Acetaminophen (Tylenol 650mg/20.3ml Solution Ud) 650 mg PO Q6 PRN PRN Reason: Pain, moderate (4-7) Last Admin: 01/16/18 17:00 Dose: 650 mg Acetaminophen/Butalbital/Caffeine (Fioricet) 1 tab PO Q6 PRN PRN Reason: Headache Last Admin: 01/13/18 22:05 Dose: 1 tab Aspirin (Aspirin Supp) 300 mg [place] DAILY [facility] Last Admin: 01/19/18 08:39 Dose: 300 mg Atorvastatin Calcium (Lipitor) 20 mg PO HS GEMA Last Admin: 01/15/18 21:19 Dose: 20 mg Carvedilol (Coreg) 6.25 mg PO Q12 GEMA Last Admin: 01/15/18 10:08 Dose: 6.25 mg Dexamethasone (Decadron Inj) 10 mg IV Q12H G[facility] Last Admin: 01/19/18 04:18 Dose: 10 mg Enoxaparin Sodium (Lovenox) 30 mg SC Q12 GEMA PRN Reason: Protocol Last Admin: 01/18/18 10:35 Dose: Not Given Nicardipine HCl (Cardene Iv Premix) 20 mg in 200 mls @ 50 mls/hr IV .Q4H GEMA; 5 MG/HR PRN Reason: Protocol Last Admin: 01/16/18 16:00 Dose: 5 mg/hr, 50 mls/hr Valproate Sodium 500 mg/ (Sodium Chloride) 105 mls @ 100 mls/hr IVPB Q12 GEMA Last Admin: 01/18/18 21:20 Dose: 100 mls/hr Magnesium Sulfate 1 gm/ (Dextrose) 102 mls @ 204 mls/hr IVPB Q8 PRN; 1 GM/30 MIN PRN Reason: Neuropathic Pain level 4-7 Last Admin: 01/18/18 22:34 Dose: 204 mls/hr Valproate Sodium 1,000 mg/ (Sodium Chloride) 110 mls @ 0 mls/hr IVPB ONCE ONE PRN Reason: As Directed Stop: 01/19/18 09:18 Lamotrigine (Lamictal) 100 mg PO DAILY [facility] Last Admin: 01/19/18 08:40 Dose: Not Given Levothyroxine Sodium (Synthroid) 25 mcg PO DAILY@0630 [facility] Last Admin: 01/19/18 06:20 Dose: Not Given Lorazepam (Ativan) 1 mg PO Q6 PRN PRN Reason: Anxiety Last Admin: 01/12/18 20:58 Dose: 1 mg Lorazepam (Ativan) 1 mg IVP Q12 PRN PRN Reason: Agitation Last Admin: 01/19/18 09:01 Dose: 1 mg Lorazepam (Ativan) 0.5 mg IVP STAT STA Stop: 01/19/18 08:58 Pantoprazole Sodium (Protonix Inj) 40 mg IVP DAILY [facility] Last Admin: 01/19/18 08:39 Dose: 40 mg Prednisolone Acetate (Pred Forte 1% Opht Susp) 1 drop OD DAILY [facility] Last Admin: 01/18/18 09:27 Dose: 1 drop - Labs Labs: 01/19/18 04:20 01/19/18 04:20 PT 14.8 Seconds (9.8-13.1) H 01/17/18 04:18 INR 1.3 01/17/18 04:18 APTT 28.2 Seconds (25.6-37.1) 01/16/18 13:35 - Constitutional Appears: No Acute Distress - Head Exam Head Exam: NORMAL INSPECTION - Eye Exam Additional comments: refuse to open her eyes - Neurological Exam Neuro motor strength exam: Left Upper Extremity: 2/1, Right Upper Extremity: 2/1 , Left Lower Extremity: 2/1, Right Lower Extremity: 2/1 Additional comments: restless, agitated, cry all the time, withdraws from pain stimuli. Assessment and Plan (1) Ischemic stroke Assessment & Plan: Case discussed with Dr. Boykin, continue all current medical regimen. Recommend loading valproic 100 mg IVPB for one dose, keep head of bed elevtaed at least 30 degrees, treat any underlying infection, or electrolyte abnormalities. Status: Acute
--- NOTE | 2018-01-19 09:44 | CP.PCM.CON ---
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 He was admitted because he had Past Patient History - Infectious Disease Hx of Infectious Diseases: None - Past Medical History & Family History Past Medical History?: Yes - Past Social History Smoking Status: Never Smoked - CARDIAC Hx Cardiac Disorders: Yes Hx Hypertension: Yes - PULMONARY Hx Respiratory Disorders: No - NEUROLOGICAL Hx Dizziness: Yes Hx Seizures: Yes ("mild seizures", takes lamictal) - HEENT Hx HEENT Problems: No Hx Cataracts: Yes Hx Difficulty Chewing: Yes - RENAL Hx Chronic Kidney Disease: No - ENDOCRINE/METABOLIC Hx Endocrine Disorders: No - HEMATOLOGICAL/ONCOLOGICAL Hx AIDS: No Hx Anemia: Yes Hx Human Immunodeficiency Virus (HIV): No - INTEGUMENTARY Hx Dermatological Problems: No - MUSCULOSKELETAL/RHEUMATOLOGICAL Hx Arthritis: Yes Hx Falls: Yes Hx Fractures: Yes (left femur s/p fall in March) - GASTROINTESTINAL Hx Gastrointestinal Disorders: No - GENITOURINARY/GYNECOLOGICAL Hx Genitourinary Disorders: No - PSYCHIATRIC Hx Anxiety: Yes Hx Substance Use: No - SURGICAL HISTORY Hx Cholecystectomy: Yes - ANESTHESIA Hx Anesthesia: Yes Hx Anesthesia Reactions: No Hx Malignant Hyperthermia: No Has any member of the family had a problem w/ anesthesia?: No Meds Allergies/Adverse Reactions: Allergies Allergy/AdvReac Type Severity Reaction Status Date / Time No Known Allergies Allergy Verified 01/11/18 10:40 - Medications Medications: Current Medications Acetaminophen (Tylenol 650mg/20.3ml Solution Ud) 650 mg PO Q6 PRN PRN Reason: Pain, moderate (4-7) Last Admin: 01/16/18 17:00 Dose: 650 mg Acetaminophen/Butalbital/Caffeine (Fioricet) 1 tab PO Q6 PRN PRN Reason: Headache Last Admin: 01/13/18 22:05 Dose: 1 tab Aspirin (Aspirin Supp) 300 mg [place] DAILY [facility] Last Admin: 01/19/18 08:39 Dose: 300 mg Atorvastatin Calcium (Lipitor) 20 mg PO HS [facility] Last Admin: 01/15/18 21:19 Dose: 20 mg Carvedilol (Coreg) 6.25 mg PO Q12 [facility] Last Admin: 01/15/18 10:08 Dose: 6.25 mg Dexamethasone (Decadron Inj) 10 mg IV Q12H [facility] Last Admin: 01/19/18 04:18 Dose: 10 mg Enoxaparin Sodium (Lovenox) 30 mg SC Q12 GEMA PRN Reason: Protocol Last Admin: 01/18/18 10:35 Dose: Not Given Nicardipine HCl (Cardene Iv Premix) 20 mg in 200 mls @ 50 mls/hr IV .Q4H GEMA; 5 MG/HR PRN Reason: Protocol Last Admin: 01/16/18 16:00 Dose: 5 mg/hr, 50 mls/hr Valproate Sodium 500 mg/ (Sodium Chloride) 105 mls @ 100 mls/hr IVPB Q12 [facility] Last Admin: 01/18/18 21:20 Dose: 100 mls/hr Magnesium Sulfate 1 gm/ (Dextrose) 102 mls @ 204 mls/hr IVPB Q8 PRN; 1 GM/30 MIN PRN Reason: Neuropathic Pain level 4-7 Last Admin: 01/18/18 22:34 Dose: 204 mls/hr Valproate Sodium 1,000 mg/ (Sodium Chloride) 110 mls @ 0 mls/hr IVPB ONCE ONE PRN Reason: As Directed Stop: 01/19/18 09:18 Lamotrigine (Lamictal) 100 mg PO DAILY [facility] Last Admin: 01/19/18 08:40 Dose: Not Given Levothyroxine Sodium (Synthroid) 25 mcg PO DAILY@0630 [facility] Last Admin: 01/19/18 06:20 Dose: Not Given Lorazepam (Ativan) 1 mg PO Q6 PRN PRN Reason: Anxiety Last Admin: 01/12/18 20:58 Dose: 1 mg Lorazepam (Ativan) 1 mg IVP Q12 PRN PRN Reason: Agitation Last Admin: 01/19/18 09:01 Dose: 1 mg Lorazepam (Ativan) 0.5 mg IVP STAT STA Stop: 01/19/18 08:58 Pantoprazole Sodium (Protonix Inj) 40 mg IVP DAILY [facility] Last Admin: 01/19/18 08:39 Dose: 40 mg Prednisolone Acetate (Pred Forte 1% Opht Susp) 1 drop OD DAILY [facility] Last Admin: 01/18/18 09:27 Dose: 1 drop Results - Vital Signs Recent Vital Signs: Last Vital Signs Temp 98.4 F 01/19/18 00:00 Pulse 79 01/19/18 06:00 Resp 17 01/19/18 06:00 BP 169/70 H 01/19/18 06:00 Pulse Ox 96 01/19/18 06:00 - Labs Result Diagrams: 01/19/18 04:20 01/19/18 04:20 Labs: Laboratory Results - last 24 hr 01/18/18 01/19/18 01/19/18 20:00 04:20 04:20 WBC 12.8 H RBC 3.90 Hgb 11.7 L Hct 35.8 MCV 91.9 MCH 30.0 MCHC 32.6 L RDW 14.6 H Plt Count 32 L Sodium 146 Potassium 3.8 Chloride 114 H Carbon Dioxide 23 Anion Gap 13 BUN 30 H Creatinine 1.2 Est GFR ( Amer) 53 Est GFR (Non-Af Amer) 44 Random Glucose 146 H Calcium 8.4 Magnesium Total Bilirubin 0.8 AST 45 H D ALT 24 Alkaline Phosphatase 67 Total Protein 6.4 Albumin 3.0 L Globulin 3.4 Albumin/Globulin Ratio 0.9 L Valproic Acid 25.2 L 01/19/18 01/19/18 04:20 07:48 WBC RBC Hgb Hct MCV MCH MCHC RDW Plt Count Sodium Potassium Chloride Carbon Dioxide Anion Gap BUN Creatinine Est GFR ( Amer) Est GFR (Non-Af Amer) Random Glucose Calcium Magnesium 2.4 H Total Bilirubin AST ALT Alkaline Phosphatase Total Protein Albumin Globulin Albumin/Globulin Ratio Valproic Acid 38.2 L
[2018-01-19] MEDS: Sodium Chloride 0.9% 1,000 ML IV SCH (09:52)
[2018-01-19] MEDS ORDERED: Valproate 1,000 MG in Sodium Chloride 0.9% 100 ML IVPB ONE (10:00)
[2018-01-19] MEDS: PrednisoLONE 1% OPTH SUSP OD SCH (10:30)
[2018-01-19] MEDS: Valproate 500 MG in Sodium Chloride 0.9% 100 ML IVPB SCH ×2 (10:31→22:00)
[2018-01-19] MEDS ORDERED: Sodium Chloride 0.9% 1,000 ML IV SCH (12:30)
--- NOTE | 2018-01-19 12:39 | PN ---
Copied To: Felice Al MD Attending MD: Felice Al MD DATE: 01/19/2018 SUBJECTIVE: The patient seen and examined. Interim events noted. Consults noted and appreciated. The patient remains in intensive care unit, more louder in noise, but noncommunicative. No specific issue reported by nursing staff. PHYSICAL EXAMINATION: GENERAL: The patient is in intensive care unit, in no acute distress. VITAL SIGNS: Stable. HEART: S1 and S2. Normal and regular. LUNGS: Good bilateral air exchange. ABDOMEN: Soft and nontender. EXTREMITIES: No edema. No calf swelling. No tenderness. No acute ischemia. NURSERY WORKER: Exam is essentially unchanged. DIAGNOSTIC DATA: Available diagnostic data reviewed. Telemetry monitoring does not reveal any significant . ASSESSMENT AND PLAN: Overall, the patient's general medical condition is stable. plan as ordered. Felice Al MD
--- NOTE | 2018-01-19 15:15 | CP.PCM.CON ---
History of Present Illness - History of Present Illness History of Present Illness: This is a 77 yrs old female who was admitted for complaints of weakness, dizziness and lightheadedness. She has a h/o migrane headaches, complex partial seizures, HTN, hypercholesterolemia, atrial fibrillation. She was brought to the ER from where she was admitted. A ct scan done showed left parietal lobe infarct, right cerebellar infarct chronic right parietal infarct.,and microangiopathy. MRI showed area supplied by right cerebral artery to be infarcted.. History was obtained from the chart and nurses, Pt moans but soes not speak. She does not smoke and no alcohol either. Past Patient History - Infectious Disease Hx of Infectious Diseases: None - Past Medical History & Family History Past Medical History?: Yes - Past Social History Smoking Status: Never Smoked - CARDIAC Hx Cardiac Disorders: Yes Hx Hypertension: Yes - PULMONARY Hx Respiratory Disorders: No - NEUROLOGICAL Hx Dizziness: Yes Hx Seizures: Yes ("mild seizures", takes lamictal) - HEENT Hx HEENT Problems: No Hx Cataracts: Yes Hx Difficulty Chewing: Yes - RENAL Hx Chronic Kidney Disease: No - ENDOCRINE/METABOLIC Hx Endocrine Disorders: No - HEMATOLOGICAL/ONCOLOGICAL Hx AIDS: No Hx Anemia: Yes Hx Human Immunodeficiency Virus (HIV): No - INTEGUMENTARY Hx Dermatological Problems: No - MUSCULOSKELETAL/RHEUMATOLOGICAL Hx Arthritis: Yes Hx Falls: Yes Hx Fractures: Yes (left femur s/p fall in March) - GASTROINTESTINAL Hx Gastrointestinal Disorders: No - GENITOURINARY/GYNECOLOGICAL Hx Genitourinary Disorders: No - PSYCHIATRIC Hx Anxiety: Yes Hx Substance Use: No - SURGICAL HISTORY Hx Cholecystectomy: Yes - ANESTHESIA Hx Anesthesia: Yes Hx Anesthesia Reactions: No Hx Malignant Hyperthermia: No Has any member of the family had a problem w/ anesthesia?: No Meds Allergies/Adverse Reactions: Allergies Allergy/AdvReac Type Severity Reaction Status Date / Time No Known Allergies Allergy Verified 01/11/18 10:40 - Medications Medications: Current Medications Acetaminophen (Tylenol 650mg/20.3ml Solution Ud) 650 mg PO Q6 PRN PRN Reason: Pain, moderate (4-7) Last Admin: 01/16/18 17:00 Dose: 650 mg Acetaminophen/Butalbital/Caffeine (Fioricet) 1 tab PO Q6 PRN PRN Reason: Headache Last Admin: 01/13/18 22:05 Dose: 1 tab Aspirin (Aspirin Supp) 300 mg [place] DAILY [facility] Last Admin: 01/19/18 08:39 Dose: 300 mg Atorvastatin Calcium (Lipitor) 20 mg PO HS [facility] Last Admin: 01/15/18 21:19 Dose: 20 mg Carvedilol (Coreg) 6.25 mg PO Q12 [facility] Last Admin: 01/15/18 10:08 Dose: 6.25 mg Dexamethasone (Decadron Inj) 10 mg IV Q12H [facility] Last Admin: 01/19/18 04:18 Dose: 10 mg Enoxaparin Sodium (Lovenox) 30 mg SC Q12 [facility] PRN Reason: Protocol Last Admin: 01/18/18 10:35 Dose: Not Given Nicardipine HCl (Cardene Iv Premix) 20 mg in 200 mls @ 50 mls/hr IV .Q4H [facility]; 5 MG/HR PRN Reason: Protocol Last Admin: 01/16/18 16:00 Dose: 5 mg/hr, 50 mls/hr Valproate Sodium 500 mg/ (Sodium Chloride) 105 mls @ 100 mls/hr IVPB Q12 [facility] Last Admin: 01/19/18 10:31 Dose: Not Given Magnesium Sulfate 1 gm/ (Dextrose) 102 mls @ 204 mls/hr IVPB Q8 PRN; 1 GM/30 MIN PRN Reason: Neuropathic Pain level 4-7 Last Admin: 01/18/18 22:34 Dose: 204 mls/hr Sodium Chloride (Sodium Chloride 0.9%) 1,000 mls @ 60 mls/hr IV .[id number] [facility] Stop: 01/20/18 12:24 Last Admin: 01/19/18 13:20 Dose: 60 mls/hr Lamotrigine (Lamictal) 100 mg PO DAILY [facility] Last Admin: 01/19/18 08:40 Dose: Not Given Levothyroxine Sodium (Synthroid) 25 mcg PO DAILY@0630 [facility] Last Admin: 01/19/18 06:20 Dose: Not Given Lorazepam (Ativan) 1 mg PO Q6 PRN PRN Reason: Anxiety Last Admin: 01/12/18 20:58 Dose: 1 mg Lorazepam (Ativan) 1 mg IVP Q12 PRN PRN Reason: Agitation Last Admin: 01/19/18 09:01 Dose: 1 mg Pantoprazole Sodium (Protonix Inj) 40 mg IVP DAILY [facility] Last Admin: 01/19/18 08:39 Dose: 40 mg Prednisolone Acetate (Pred Forte 1% Opht Susp) 1 drop OD DAILY [facility] Last Admin: 01/19/18 10:30 Dose: 1 drop Physical Exam - Additional Findings Additional findings: Physical exam; difficult to examine because of her condition and non cooperation neck; supple, no adenopathy Chest; clear, no rales or rhonchi Heart; RSR, no murmur Abd soft. ,no mass Neuro; Unable to do a proper exam, Results - Vital Signs Recent Vital Signs: Last Vital Signs Temp 98.7 F 01/19/18 12:00 Pulse 56 L 01/19/18 14:00 Resp 18 01/19/18 14:00 BP 105/46 L 01/19/18 14:00 Pulse Ox 95 01/19/18 14:00 - Labs Result Diagrams: 01/19/18 04:20 01/19/18 04:20 Labs: Laboratory Results - last 24 hr 01/18/18 01/19/18 01/19/18 20:00 04:20 04:20 WBC 12.8 H RBC 3.90 Hgb 11.7 L Hct 35.8 MCV 91.9 MCH 30.0 MCHC 32.6 L RDW 14.6 H Plt Count 32 L Sodium 146 Potassium 3.8 Chloride 114 H Carbon Dioxide 23 Anion Gap 13 BUN 30 H Creatinine 1.2 Est GFR ( Amer) 53 Est GFR (Non-Af Amer) 44 Random Glucose 146 H Calcium 8.4 Magnesium Total Bilirubin 0.8 AST 45 H D ALT 24 Alkaline Phosphatase 67 Total Protein 6.4 Albumin 3.0 L Globulin 3.4 Albumin/Globulin Ratio 0.9 L Valproic Acid 25.2 L 01/19/18 01/19/18 04:20 07:48 WBC RBC Hgb Hct MCV MCH MCHC RDW Plt Count Sodium Potassium Chloride Carbon Dioxide Anion Gap BUN Creatinine Est GFR ( Amer) Est GFR (Non-Af Amer) Random Glucose Calcium Magnesium 2.4 H Total Bilirubin AST ALT Alkaline Phosphatase Total Protein Albumin Globulin Albumin/Globulin Ratio Valproic Acid 38.2 L Assessment & Plan - Assessment and Plan (Free Text) Assessment: Impression Massive CVA. Thrombocytopenia most probably secondary to heparin which was stopped 2 days ago. Plan: Plan; I would hold giving her the Argatroban at this alphonso because of the brain infarct. Will hold the heparin and monitor cbc . - Date & Time Date: 01/19/18 Time: 15:31
--- NOTE | 2018-01-19 18:02 | CP.PCM.PN ---
Subjective - Date & Time of Evaluation Date of Evaluation: 01/19/18 Time of Evaluation: 17:59 - Subjective Subjective: MS delerious thrombocytopenia - heparin dced no ac Hematology ( ) on board Objective - Vital Signs/Intake and Output Vital Signs (last 24 hours): Temp Pulse Resp BP Pulse Ox 98.6 F 84 23 159/67 H 95 01/19/18 16:00 01/19/18 16:00 01/19/18 16:00 01/19/18 16:00 01/19/18 16:00 - Medications Medications: Current Medications Acetaminophen (Tylenol 650mg/20.3ml Solution Ud) 650 mg PO Q6 PRN PRN Reason: Pain, moderate (4-7) Last Admin: 01/16/18 17:00 Dose: 650 mg Acetaminophen/Butalbital/Caffeine (Fioricet) 1 tab PO Q6 PRN PRN Reason: Headache Last Admin: 01/13/18 22:05 Dose: 1 tab Aspirin (Aspirin Supp) 300 mg [place] DAILY [facility] Last Admin: 01/19/18 08:39 Dose: 300 mg Atorvastatin Calcium (Lipitor) 20 mg PO HS [facility] Last Admin: 01/15/18 21:19 Dose: 20 mg Carvedilol (Coreg) 6.25 mg PO Q12 [facility] Last Admin: 01/15/18 10:08 Dose: 6.25 mg Dexamethasone (Decadron Inj) 10 mg IV Q12H [facility] Last Admin: 01/19/18 15:40 Dose: 10 mg Enoxaparin Sodium (Lovenox) 30 mg SC Q12 [facility] PRN Reason: Protocol Last Admin: 01/18/18 10:35 Dose: Not Given Nicardipine HCl (Cardene Iv Premix) 20 mg in 200 mls @ 50 mls/hr IV .Q4H [facility]; 5 MG/HR PRN Reason: Protocol Last Admin: 01/16/18 16:00 Dose: 5 mg/hr, 50 mls/hr Valproate Sodium 500 mg/ (Sodium Chloride) 105 mls @ 100 mls/hr IVPB Q12 [facility] Last Admin: 01/19/18 10:31 Dose: Not Given Magnesium Sulfate 1 gm/ (Dextrose) 102 mls @ 204 mls/hr IVPB Q8 PRN; 1 GM/30 MIN PRN Reason: Neuropathic Pain level 4-7 Last Admin: 01/18/18 22:34 Dose: 204 mls/hr Sodium Chloride (Sodium Chloride 0.9%) 1,000 mls @ 60 mls/hr IV .[id number] [facility] Stop: 01/20/18 12:24 Last Admin: 01/19/18 13:20 Dose: 60 mls/hr Lamotrigine (Lamictal) 100 mg PO DAILY [facility] Last Admin: 01/19/18 08:40 Dose: Not Given Levothyroxine Sodium (Synthroid) 25 mcg PO DAILY@0630 [facility] Last Admin: 01/19/18 06:20 Dose: Not Given Lorazepam (Ativan) 1 mg PO Q6 PRN PRN Reason: Anxiety Last Admin: 01/12/18 20:58 Dose: 1 mg Lorazepam (Ativan) 1 mg IVP Q12 PRN PRN Reason: Agitation Last Admin: 01/19/18 09:01 Dose: 1 mg Pantoprazole Sodium (Protonix Inj) 40 mg IVP DAILY [facility] Last Admin: 01/19/18 08:39 Dose: 40 mg Prednisolone Acetate (Pred Forte 1% Opht Susp) 1 drop OD DAILY [facility] Last Admin: 01/19/18 10:30 Dose: 1 drop - Labs Labs: 01/19/18 04:20 01/19/18 04:20 PT 14.8 Seconds (9.8-13.1) H 01/17/18 04:18 INR 1.3 01/17/18 04:18 APTT 28.2 Seconds (25.6-37.1) 01/16/18 13:35 - Constitutional Appears: Toxic, In Acute Distress, Agitated, Confused - Head Exam Head Exam: ATRAUMATIC, NORMAL INSPECTION, NORMOCEPHALIC - Eye Exam Eye Exam: EOMI, Normal appearance, PERRL Pupil Exam: NORMAL ACCOMODATION, PERRL - ENT Exam ENT Exam: Mucous Membranes Moist, Normal Exam - Neck Exam Neck Exam: Full ROM, Normal Inspection. absent: Lymphadenopathy - Respiratory Exam Respiratory Exam: Clear to Ausculation Bilateral, Rales, NORMAL BREATHING PATTERN - Cardiovascular Exam Cardiovascular Exam: REGULAR RHYTHM, +S1, +S2, Murmur - GI/Abdominal Exam GI & Abdominal Exam: Soft, Normal Bowel Sounds. absent: Tenderness - Extremities Exam Extremities Exam: Full ROM, Normal Capillary Refill, Normal Inspection. absent : Joint Swelling, Pedal Edema - Back Exam Back Exam: NORMAL INSPECTION - Neurological Exam Neurological Exam: Altered - Skin Skin Exam: Dry, Intact, Normal Color, Warm Assessment and Plan (1) Mental status change Status: Acute (2) Elevated troponin Status: Acute (3) Dizziness Status: Acute (4) Atrial fibrillation Status: Acute (5) HTN (hypertension) Status: Acute (6) Thrombocytopenia Status: Acute
[2018-01-19] MEDS ORDERED: Chlorhexidine Gluconate 1 APPL/PKT TP ONE (19:42)
[2018-01-19] MEDS: Albuterol-Ipratrop 3 mg / 0.5 (3 ml) UD INH PRN (21:08)
[2018-01-19 21:13] LABS: ABG ALLEN TEST YES; ARTERIAL BLOOD GAS HCO3 20.7 mmol/L (21-28); ARTERIAL BLOOD GAS HEMOGLOBIN 13.3 g/dL (11.7-17.4); ARTERIAL BLOOD GAS O2 CAPACITY 18.6 mL/dL (16-24); ARTERIAL BLOOD GAS O2 CONTENT 18.6 ML/dL (15-23); ARTERIAL BLOOD GAS PCO2 41 mm/Hg (35-45); ARTERIAL BLOOD GAS PH 7.31 (7.35-7.45); ARTERIAL BLOOD GAS PO2 188 mm/Hg (80-100); ARTERIAL BLOOD GAS TCO2 21.9 mmol/L (22-28)
[2018-01-19] MEDS ORDERED: Albuterol-Ipratrop 3 mg / 0.5 (3 ml) UD INH PRN (21:20)
[2018-01-19] MEDS ORDERED: methylPREDNISolone 40 MG in Sodium Chloride 0.9% 50 ML IV ONE (21:22)
[2018-01-19] MEDS ORDERED: MethylPREDNISolone 40 mg Vial IVP ONE (21:45)
[2018-01-19 22:04] LABS: CALCIUM 8.9 mg/dL (8.4-10.2)
[2018-01-20 05:42] LABS: MEAN CELL VOLUME 92.7 fl (81.0-99.0); MEAN CORPUSCULAR HGB CONC 32.4 g/dL (33.0-37.0); RBC 4.33 Mil/uL (3.80-5.20); RED CELL DISTRIBUTION WIDTH 15.1 % (11.5-14.5); WHITE BLOOD COUNT 13.5 K/uL (4.8-10.8)
[2018-01-20 06:23] LABS: ALBUMIN 3.4 g/dL (3.5-5.0); CALCIUM 8.8 mg/dL (8.4-10.2)
[2018-01-20] MEDS: Levothyroxine 25 MCG TAB PO SCH (07:04)
--- NOTE | 2018-01-20 08:07 | CP.PCM.PN ---
Subjective - Date & Time of Evaluation Date of Evaluation: 01/20/18 Time of Evaluation: 08:04 - Subjective Subjective: Pt is still not fully awake or oriented. She moans but does not answer when talked to. Her fibrinogen is low and and platelet count is 28K. She is positive for MRSA and was also positive for gram negative rods. This could be part of DIC in addition to possible platelet antibody from heparin . Objective - Vital Signs/Intake and Output Vital Signs (last 24 hours): Temp Pulse Resp BP Pulse Ox 98.0 F 94 H 19 118/92 H 100 01/20/18 04:00 01/20/18 06:00 01/20/18 06:00 01/20/18 06:00 01/20/18 06:00 - Medications Medications: Current Medications Acetaminophen (Tylenol 650mg/20.3ml Solution Ud) 650 mg PO Q6 PRN PRN Reason: Pain, moderate (4-7) Last Admin: 01/16/18 17:00 Dose: 650 mg Acetaminophen/Butalbital/Caffeine (Fioricet) 1 tab PO Q6 PRN PRN Reason: Headache Last Admin: 01/13/18 22:05 Dose: 1 tab Albuterol/Ipratropium (Duoneb 3 Mg/0.5 Mg (3 Ml) Ud) 3 ml INH RQ6 PRN PRN Reason: Shortness of Breath Last Admin: 01/19/18 21:08 Dose: 3 ml Albuterol/Ipratropium (Duoneb 3 Mg/0.5 Mg (3 Ml) Ud) 3 ml INH RQ6 PRN PRN Reason: Shortness of Breath Aspirin (Aspirin Supp) 300 mg [place] DAILY [facility] Last Admin: 01/19/18 08:39 Dose: 300 mg Atorvastatin Calcium (Lipitor) 20 mg PO HS [facility] Last Admin: 01/15/18 21:19 Dose: 20 mg Carvedilol (Coreg) 6.25 mg PO Q12 [facility] Last Admin: 01/15/18 10:08 Dose: 6.25 mg Dexamethasone (Decadron Inj) 10 mg IV Q12H [facility] Last Admin: 01/20/18 04:47 Dose: 10 mg Enoxaparin Sodium (Lovenox) 30 mg SC Q12 [facility] PRN Reason: Protocol Last Admin: 01/18/18 10:35 Dose: Not Given Nicardipine HCl (Cardene Iv Premix) 20 mg in 200 mls @ 50 mls/hr IV .Q4H [facility]; 5 MG/HR PRN Reason: Protocol Last Admin: 01/16/18 16:00 Dose: 5 mg/hr, 50 mls/hr Valproate Sodium 500 mg/ (Sodium Chloride) 105 mls @ 100 mls/hr IVPB Q12 [facility] Last Admin: 01/19/18 22:00 Dose: 100 mls/hr Magnesium Sulfate 1 gm/ (Dextrose) 102 mls @ 204 mls/hr IVPB Q8 PRN; 1 GM/30 MIN PRN Reason: Neuropathic Pain level 4-7 Last Admin: 01/18/18 22:34 Dose: 204 mls/hr Sodium Chloride (Sodium Chloride 0.9%) 1,000 mls @ 60 mls/hr IV .[id number] [facility] Stop: 01/20/18 12:24 Last Admin: 01/19/18 13:20 Dose: 60 mls/hr Lamotrigine (Lamictal) 100 mg PO DAILY [facility] Last Admin: 01/19/18 08:40 Dose: Not Given Levothyroxine Sodium (Synthroid) 25 mcg PO DAILY@0630 [facility] Last Admin: 01/20/18 07:04 Dose: Not Given Lorazepam (Ativan) 1 mg PO Q6 PRN PRN Reason: Anxiety Last Admin: 01/12/18 20:58 Dose: 1 mg Lorazepam (Ativan) 1 mg IVP Q12 PRN PRN Reason: Agitation Last Admin: 01/19/18 09:01 Dose: 1 mg Pantoprazole Sodium (Protonix Inj) 40 mg IVP DAILY [facility] Last Admin: 01/19/18 08:39 Dose: 40 mg Prednisolone Acetate (Pred Forte 1% Opht Susp) 1 drop OD DAILY [facility] Last Admin: 01/19/18 10:30 Dose: 1 drop - Labs Labs: 01/20/18 04:20 01/20/18 04:20 PT 14.8 Seconds (9.8-13.1) H 01/17/18 04:18 INR 1.3 01/17/18 04:18 APTT 28.2 Seconds (25.6-37.1) 01/16/18 13:35
[2018-01-20] MEDS: PrednisoLONE 1% OPTH SUSP OD SCH (08:15)
--- NOTE | 2018-01-20 08:46 | PN ---
Copied To: Hunter Mane MD Attending MD: Hunter Mane MD DATE: 01/17/2018 CRITICAL CARE PROGRESS NOTE LOCATION: Patient in ICU, bed 421. TIME SPENT: 35 minutes. The patient is seen and evaluated at the bedside. Past medical, surgical and social history reviewed. SUBJECTIVE: A 77-year-old male with history significant for hypertension, hyperlipidemia, chronic atrial fibrillation, seizure disorder, status post left total hip replacement, bedbound at home, admitted with multiple brain strokes, status post [employer]IAN, admitted to ICU overnight, on amantadine 100 mg twice daily, Lipitor 20 mg daily, Coreg 6.25 mg, Decadron 10 mg, Lamictal 100 mg daily. This morning, the patient had repeat MRI for followup. CT head done last night. Given Ativan 2 mg to avoid artifact from moving head PHYSICAL EXAMINATION: GENERAL: Remains lethargic but able to open eyes. Moves her arms and legs. VITAL SIGNS: Temperature 97.8, heart rate of 55, blood pressure 119/62 HEENT: pupils reactive, 2 to 3 mm CHEST: Breath sounds present, clear'. ABDOMEN: not distended. Bowel sounds present. HEART: RRR, s1, s2 normal.. EXTREMITIES: trace edema,, moves all extremities to tactile stimuli. SKIN: No rash. LABORATORY DATA: WBC 7, hemoglobin_, platelet count reduced. . MRI of brain, bilaterl multiple infarcts, involving posterior and anterior circulation. Assessment: multiple infarcts. Embolic. Anticoagyulation resumed. but comcern because of lovenox. closely monitor platelet count.[place] SBP 140 to 160.IVF. Keep HOB [address] up[address]CD in place. continue Depakote, Iv steroids.Prognosis guarded. Hunter Mane MD MTDD
[2018-01-20] MEDS: Valproate 500 MG in Sodium Chloride 0.9% 100 ML IVPB SCH ×2 (08:51→21:26)
--- NOTE | 2018-01-20 08:57 | CP.PCM.PN ---
Subjective - Date & Time of Evaluation Date of Evaluation: 01/20/18 Time of Evaluation: 20:00 - Subjective Subjective: lethargic , nonverbal daughter at bedside HR 100's afib Objective - Vital Signs/Intake and Output Vital Signs (last 24 hours): Temp Pulse Resp BP Pulse Ox 98.7 F 85 26 H 141/58 L 99 01/20/18 08:00 01/20/18 08:00 01/20/18 08:00 01/20/18 08:00 01/20/18 08:00 - Medications Medications: Current Medications Acetaminophen (Tylenol 650mg/20.3ml Solution Ud) 650 mg PO Q6 PRN PRN Reason: Pain, moderate (4-7) Last Admin: 01/16/18 17:00 Dose: 650 mg Acetaminophen/Butalbital/Caffeine (Fioricet) 1 tab PO Q6 PRN PRN Reason: Headache Last Admin: 01/13/18 22:05 Dose: 1 tab Albuterol/Ipratropium (Duoneb 3 Mg/0.5 Mg (3 Ml) Ud) 3 ml INH RQ6 PRN PRN Reason: Shortness of Breath Last Admin: 01/19/18 21:08 Dose: 3 ml Albuterol/Ipratropium (Duoneb 3 Mg/0.5 Mg (3 Ml) Ud) 3 ml INH RQ6 PRN PRN Reason: Shortness of Breath Aspirin (Aspirin Supp) 300 mg [place] DAILY [facility] Last Admin: 01/20/18 08:14 Dose: 300 mg Atorvastatin Calcium (Lipitor) 20 mg PO HS [facility] Last Admin: 01/15/18 21:19 Dose: 20 mg Carvedilol (Coreg) 6.25 mg PO Q12 [facility] Last Admin: 01/15/18 10:08 Dose: 6.25 mg Dexamethasone (Decadron Inj) 10 mg IV Q12H [facility] Last Admin: 01/20/18 04:47 Dose: 10 mg Enoxaparin Sodium (Lovenox) 30 mg SC Q12 [facility] PRN Reason: Protocol Last Admin: 01/18/18 10:35 Dose: Not Given Nicardipine HCl (Cardene Iv Premix) 20 mg in 200 mls @ 50 mls/hr IV .Q4H [facility]; 5 MG/HR PRN Reason: Protocol Last Admin: 01/16/18 16:00 Dose: 5 mg/hr, 50 mls/hr Valproate Sodium 500 mg/ (Sodium Chloride) 105 mls @ 100 mls/hr IVPB Q12 [facility] Last Admin: 01/20/18 08:51 Dose: 100 mls/hr Magnesium Sulfate 1 gm/ (Dextrose) 102 mls @ 204 mls/hr IVPB Q8 PRN; 1 GM/30 MIN PRN Reason: Neuropathic Pain level 4-7 Last Admin: 01/18/18 22:34 Dose: 204 mls/hr Sodium Chloride (Sodium Chloride 0.9%) 1,000 mls @ 60 mls/hr IV .[id number] [facility] Stop: 01/20/18 12:24 Last Admin: 01/19/18 13:20 Dose: 60 mls/hr Lamotrigine (Lamictal) 100 mg PO DAILY [facility] Last Admin: 01/19/18 08:40 Dose: Not Given Levothyroxine Sodium (Synthroid) 25 mcg PO DAILY@0630 [facility] Last Admin: 01/20/18 07:04 Dose: Not Given Lorazepam (Ativan) 1 mg PO Q6 PRN PRN Reason: Anxiety Last Admin: 01/12/18 20:58 Dose: 1 mg Lorazepam (Ativan) 1 mg IVP Q12 PRN PRN Reason: Agitation Last Admin: 01/19/18 09:01 Dose: 1 mg Pantoprazole Sodium (Protonix Inj) 40 mg IVP DAILY [facility] Last Admin: 01/20/18 08:15 Dose: 40 mg Prednisolone Acetate (Pred Forte 1% Opht Susp) 1 drop OD DAILY [facility] Last Admin: 01/20/18 08:15 Dose: 1 drop - Labs Labs: 01/20/18 04:20 01/20/18 04:20 PT 14.8 Seconds (9.8-13.1) H 01/17/18 04:18 INR 1.3 01/17/18 04:18 APTT 28.2 Seconds (25.6-37.1) 01/16/18 13:35 - Constitutional Appears: Toxic, In Acute Distress, Agitated - Head Exam Head Exam: ATRAUMATIC, NORMAL INSPECTION, NORMOCEPHALIC - Eye Exam Eye Exam: Normal appearance Pupil Exam: Irregular - ENT Exam ENT Exam: Mucous Membranes Moist, Normal Exam - Neck Exam Neck Exam: Normal Inspection. absent: Lymphadenopathy - Respiratory Exam Respiratory Exam: Clear to Ausculation Bilateral, Rales, NORMAL BREATHING PATTERN - Cardiovascular Exam Cardiovascular Exam: Irregular Rhythm, +S1, +S2, Murmur - GI/Abdominal Exam GI & Abdominal Exam: Soft, Normal Bowel Sounds. absent: Tenderness - Extremities Exam Extremities Exam: Full ROM, Normal Capillary Refill, Normal Inspection. absent : Joint Swelling, Pedal Edema - Back Exam Back Exam: NORMAL INSPECTION - Neurological Exam Neurological Exam: Altered - Psychiatric Exam Psychiatric exam: Normal Affect, Normal Mood - Skin Skin Exam: Dry, Intact, Normal Color, Warm Assessment and Plan (1) Atrial fibrillation Assessment & Plan: On IV CCB if bp stable can use IV BB ac on hold 2' to bleed and thrombocytopenia Status: Acute (2) CVA (cerebrovascular accident due to intracerebral hemorrhage) Status: Acute (3) Mental status change Status: Acute (4) Elevated troponin Status: Acute (5) HTN (hypertension) Status: Acute (6) Thrombocytopenia Assessment & Plan: etiology ? HIT Status: Acute
--- NOTE | 2018-01-20 09:22 | CP.PCM.PN ---
Subjective - Date & Time of Evaluation Date of Evaluation: 01/20/18 Time of Evaluation: 09:18 - Subjective Subjective: Ms. Mcmanus was seen and examined at the bedside in ICU. She is lethargic, pupils are sluggishly reactive to light accommodation, grimaces and withdraws from noxious stimuli, + corneal reflex, on a [id number] mask, utilizing accessory muscle for breathing , resp. in the 30's SPO2-100%. She is receiving IVF. She is a DNR/ DNI. Her platelet count is 28. Valproic level is 79.9. Had an episode of v-tach episode yesterday. There was no untoward events overnight. Objective - Vital Signs/Intake and Output Vital Signs (last 24 hours): Temp Pulse Resp BP Pulse Ox 98.7 F 85 26 H 141/58 L 99 01/20/18 08:00 01/20/18 08:00 01/20/18 08:00 01/20/18 08:00 01/20/18 08:00 - Medications Medications: Current Medications Acetaminophen (Tylenol 650mg/20.3ml Solution Ud) 650 mg PO Q6 PRN PRN Reason: Pain, moderate (4-7) Last Admin: 01/16/18 17:00 Dose: 650 mg Acetaminophen/Butalbital/Caffeine (Fioricet) 1 tab PO Q6 PRN PRN Reason: Headache Last Admin: 01/13/18 22:05 Dose: 1 tab Albuterol/Ipratropium (Duoneb 3 Mg/0.5 Mg (3 Ml) Ud) 3 ml INH RQ6 PRN PRN Reason: Shortness of Breath Last Admin: 01/19/18 21:08 Dose: 3 ml Albuterol/Ipratropium (Duoneb 3 Mg/0.5 Mg (3 Ml) Ud) 3 ml INH RQ6 PRN PRN Reason: Shortness of Breath Aspirin (Aspirin Supp) 300 mg [place] DAILY [facility] Last Admin: 01/20/18 08:14 Dose: 300 mg Atorvastatin Calcium (Lipitor) 20 mg PO HS [facility] Last Admin: 01/15/18 21:19 Dose: 20 mg Carvedilol (Coreg) 6.25 mg PO Q12 [facility] Last Admin: 01/15/18 10:08 Dose: 6.25 mg Dexamethasone (Decadron Inj) 10 mg IV Q12H [facility] Last Admin: 01/20/18 04:47 Dose: 10 mg Enoxaparin Sodium (Lovenox) 30 mg SC Q12 [facility] PRN Reason: Protocol Last Admin: 01/18/18 10:35 Dose: Not Given Nicardipine HCl (Cardene Iv Premix) 20 mg in 200 mls @ 50 mls/hr IV .Q4H [facility]; 5 MG/HR PRN Reason: Protocol Last Admin: 01/16/18 16:00 Dose: 5 mg/hr, 50 mls/hr Valproate Sodium 500 mg/ (Sodium Chloride) 105 mls @ 100 mls/hr IVPB Q12 [facility] Last Admin: 01/20/18 08:51 Dose: 100 mls/hr Magnesium Sulfate 1 gm/ (Dextrose) 102 mls @ 204 mls/hr IVPB Q8 PRN; 1 GM/30 MIN PRN Reason: Neuropathic Pain level 4-7 Last Admin: 01/18/18 22:34 Dose: 204 mls/hr Sodium Chloride (Sodium Chloride 0.9%) 1,000 mls @ 60 mls/hr IV .[id number] [facility] Stop: 01/20/18 12:24 Last Admin: 01/19/18 13:20 Dose: 60 mls/hr Lamotrigine (Lamictal) 100 mg PO DAILY [facility] Last Admin: 01/19/18 08:40 Dose: Not Given Levothyroxine Sodium (Synthroid) 25 mcg PO DAILY@0630 [facility] Last Admin: 01/20/18 07:04 Dose: Not Given Lorazepam (Ativan) 1 mg PO Q6 PRN PRN Reason: Anxiety Last Admin: 01/12/18 20:58 Dose: 1 mg Lorazepam (Ativan) 1 mg IVP Q12 PRN PRN Reason: Agitation Last Admin: 01/19/18 09:01 Dose: 1 mg Pantoprazole Sodium (Protonix Inj) 40 mg IVP DAILY [facility] Last Admin: 01/20/18 08:15 Dose: 40 mg Prednisolone Acetate (Pred Forte 1% Opht Susp) 1 drop OD DAILY [facility] Last Admin: 01/20/18 08:15 Dose: 1 drop - Labs Labs: 01/20/18 04:20 01/20/18 04:20 PT 14.8 Seconds (9.8-13.1) H 01/17/18 04:18 INR 1.3 01/17/18 04:18 APTT 28.2 Seconds (25.6-37.1) 01/16/18 13:35 - Constitutional Appears: Other (lethargic) - Head Exam Head Exam: NORMAL INSPECTION - Eye Exam Pupil Exam: Miosis Additional comments: sluggish 2 mm. - Neurological Exam Neuro motor strength exam: Left Upper Extremity: 0, Right Upper Extremity: 0, Left Lower Extremity: 0, Right Lower Extremity: 0 Additional comments: neurological decline from previous examination lethargic. Assessment and Plan (1) Ischemic stroke Assessment & Plan: Case discussed with Dr. Boykin, continue all current medical regimen including holding any anticoagulant due to low platelet count. Recommend palliative care, keep head of bed elevated at least 30 degrees, normothermia, hydration. Status: Acute
--- NOTE | 2018-01-20 10:16 | RAD ---
Date of service: 01/19/2018 HISTORY: SOB COMPARISON: 01/11/2018 FINDINGS: LUNGS: The lungs are well inflated. There is moderate pulmonary venous congestion. There is airspace disease in the left lower lobe. PLEURA: Suspect left pleural effusion, no pneumothorax apparent. CARDIOVASCULAR: Normal. OSSEOUS STRUCTURES: No significant abnormalities. VISUALIZED UPPER ABDOMEN: Normal. OTHER FINDINGS: Large right paracardiac air-fluid level consistent with hiatal hernia IMPRESSION: Suspect left lower lobe atelectasis/pneumonia and small left pleural effusion. Moderate pulmonary venous congestion. Large right pericardiac hiatal hernia.
--- NOTE | 2018-01-20 12:20 | PQF ---
PROVIDER RESPONSE TEXT: Hi, The patient presented with the symptoms, but it was too early for them to be detected on non-contrast CT head. By the time the second CT head was done, for the same symptoms, the changes were present. T hese changes were consistent with acute ischemic strokes. They were confirmed to be acute to subacute on the MRI of the brain. Essentially, the diagnosis is acute ischemic stroke that started before the admission and diagnosed after admitted. Thank you, Dr. Boykin REVIEWER QUERY TEXT: Present On Admission It is unclear whether a diagnosis was present on admission. Your help is needed. Please clarify the Present On Admission (POA) status of the CVA Such as: -- Present on admission -- Not present on admission The patient's Clinical Indicators include: Admitted with c/o weakness, fatigue, headaches and dizziness. Diagnosed with NSTEMI CT #1on admission 01/11/18: No acute intracranial pathology. CT #2 on 01/14/18: A lobar infarction is identified in the left parietal lobe with interval lucency id entified at the right cerebellum inferiorly also reflecting small focal infarcts. No associated intr acranial hemorrhage or generalized mass effect although local mass effect is appreciated at the left parietal infarct. Chronic infarct right frontal lobe MRI 01/17/18: Large acute left posterior cerebral artery distribution infarct with diffuse abnormal di ffusion signal throughout the left parietal lobe, posterior temporal lobe and medial portion of the left occipital lobe. Large patchy areas of diffusion signal abnormality in the right cerebellar hem isphere as well as in the left cerebellar hemisphere to a lesser extent. Multiple scattered areas of diffusion signal abnormality in the frontal convexities and parietal convexities bilaterally, as we ll as in the deep right centrum semiovale. Findings compatible with numerous bilateral acute infarct ions; correlate clinically for embolic phenomenon. Query created by: Claudia Arana on 01/20/2018 10:59 AM Electronically signed by: Alberto Boykin MD 01/20/2018 12:17 PM
[2018-01-20] MEDS ORDERED: Sodium Chloride 0.9% 500 ML IV ONE (13:46)
[2018-01-20] MEDS ORDERED: Dextrose 5%/0.45% NS 1,000 ML IV SCH (14:00)
--- NOTE | 2018-01-20 15:19 | CP.PCM.PN ---
<Jagruti Payne - Last Filed: 01/20/18 15:39> Subjective - Date & Time of Evaluation Date of Evaluation: 01/20/18 Time of Evaluation: 07:30 - Subjective Subjective: Pt was seen with Dr. Al at bedside this morning. She is arousable to painful stimuli but otherwise not awake or alert. No significant change in condition; remains in ICU. Objective - Vital Signs/Intake and Output Vital Signs (last 24 hours): Temp Pulse Resp BP Pulse Ox 98.9 F 63 18 101/46 L 100 01/20/18 12:00 01/20/18 14:00 01/20/18 14:00 01/20/18 14:00 01/20/18 14:00 - Medications Medications: Current Medications Acetaminophen (Tylenol 650mg/20.3ml Solution Ud) 650 mg PO Q6 PRN PRN Reason: Pain, moderate (4-7) Last Admin: 01/16/18 17:00 Dose: 650 mg Acetaminophen/Butalbital/Caffeine (Fioricet) 1 tab PO Q6 PRN PRN Reason: Headache Last Admin: 01/13/18 22:05 Dose: 1 tab Albuterol/Ipratropium (Duoneb 3 Mg/0.5 Mg (3 Ml) Ud) 3 ml INH RQ6 PRN PRN Reason: Shortness of Breath Last Admin: 01/19/18 21:08 Dose: 3 ml Albuterol/Ipratropium (Duoneb 3 Mg/0.5 Mg (3 Ml) Ud) 3 ml INH RQ6 PRN PRN Reason: Shortness of Breath Aspirin (Aspirin Supp) 300 mg [place] DAILY [facility] Last Admin: 01/20/18 08:14 Dose: 300 mg Atorvastatin Calcium (Lipitor) 20 mg PO HS [facility] Last Admin: 01/15/18 21:19 Dose: 20 mg Carvedilol (Coreg) 6.25 mg PO Q12 [facility] Last Admin: 01/15/18 10:08 Dose: 6.25 mg Dexamethasone (Decadron Inj) 10 mg IV Q12H [facility] Last Admin: 01/20/18 04:47 Dose: 10 mg Enoxaparin Sodium (Lovenox) 30 mg SC Q12 [facility] PRN Reason: Protocol Last Admin: 01/18/18 10:35 Dose: Not Given Nicardipine HCl (Cardene Iv Premix) 20 mg in 200 mls @ 50 mls/hr IV .Q4H [facility]; 5 MG/HR PRN Reason: Protocol Last Admin: 01/16/18 16:00 Dose: 5 mg/hr, 50 mls/hr Valproate Sodium 500 mg/ (Sodium Chloride) 105 mls @ 100 mls/hr IVPB Q12 [facility] Last Admin: 01/20/18 08:51 Dose: 100 mls/hr Magnesium Sulfate 1 gm/ (Dextrose) 102 mls @ 204 mls/hr IVPB Q8 PRN; 1 GM/30 MIN PRN Reason: Neuropathic Pain level 4-7 Last Admin: 01/18/18 22:34 Dose: 204 mls/hr Piperacillin Sod/Tazobactam (Sod 3.375 gm/ Sodium Chloride) 100 mls @ 100 mls/ hr IVPB Q6 [facility] PRN Reason: Protocol Dextrose/Sodium Chloride (Dextrose 5%/0.45% Ns 1000 Ml) 1,000 mls @ 42 mls/hr IV .[id number] [facility] Stop: 01/21/18 13:48 Last Admin: 01/20/18 14:37 Dose: 42 mls/hr Lamotrigine (Lamictal) 100 mg PO DAILY [facility] Last Admin: 01/20/18 12:10 Dose: Not Given Levothyroxine Sodium (Synthroid) 25 mcg PO DAILY@0630 [facility] Last Admin: 01/20/18 07:04 Dose: Not Given Lorazepam (Ativan) 1 mg PO Q6 PRN PRN Reason: Anxiety Last Admin: 01/12/18 20:58 Dose: 1 mg Lorazepam (Ativan) 1 mg IVP Q12 PRN PRN Reason: Agitation Last Admin: 01/19/18 09:01 Dose: 1 mg Pantoprazole Sodium (Protonix Inj) 40 mg IVP DAILY [facility] Last Admin: 01/20/18 08:15 Dose: 40 mg Prednisolone Acetate (Pred Forte 1% Opht Susp) 1 drop OD DAILY [facility] Last Admin: 01/20/18 08:15 Dose: 1 drop - Labs Labs: 01/20/18 04:20 01/20/18 04:20 PT 14.8 Seconds (9.8-13.1) H 01/17/18 04:18 INR 1.3 01/17/18 04:18 APTT 28.2 Seconds (25.6-37.1) 01/16/18 13:35 - Constitutional Appears: Chronically Ill - Respiratory Exam Respiratory Exam: NORMAL BREATHING PATTERN. absent: Respiratory Distress - Cardiovascular Exam Cardiovascular Exam: REGULAR RHYTHM - GI/Abdominal Exam GI & Abdominal Exam: Soft, Normal Bowel Sounds - Extremities Exam Extremities Exam: absent: Pedal Edema - Neurological Exam Neurological Exam: Alert, Altered Neuro motor strength exam: Left Upper Extremity: 2/1, Right Upper Extremity: 2/1 , Left Lower Extremity: 2/1, Right Lower Extremity: 2/1 Assessment and Plan - Assessment and Plan (Free Text) Assessment: 77 yo F with past medical history of A-fib, hypertension, hypercholesterolemia, migraine headaches, seizure disorder currently in ICU s/p CVA, followed by hemorrhage. Plan: - thrombocytopenia; heme/onc consult Dr. Gilberto Chavez, appreciated -- continue to hold anticoagulation and await results of antibody testing -- continue to monitor on cbc - scds - continue with current medications for headaches, seizures, agitation, GI prophylaxis - rest of plan as ordered <Felice Al K - Last Filed: 01/26/18 08:34> Objective - Vital Signs/Intake and Output Vital Signs (last 24 hours): Temp Pulse Resp BP Pulse Ox 98.9 F 123 H 21 107/61 100 01/23/18 12:00 01/23/18 12:00 01/23/18 13:17 01/23/18 12:00 01/23/18 12:00 - Labs Labs: 01/23/18 05:10 01/23/18 05:10 PT 14.8 Seconds (9.8-13.1) H 01/17/18 04:18 INR 1.3 01/17/18 04:18 APTT 28.2 Seconds (25.6-37.1) 01/16/18 13:35 Assessment and Plan - Assessment and Plan (Free Text) Plan: Patient was personally seen and examined by me in rounds with residents. Available labs and diagnostic data reviewed. Case, Patient's condition and management plan discussed with residents in rounds. Agree with resident's progress note. Plan: As ordered.
[2018-01-20] MEDS: Piperacillin/Tazobact 3.375 GM in Sodium Chloride 0.9% 100 ML IVPB SCH ×2 (15:25→21:27)
[2018-01-20] MEDS: Albuterol-Ipratrop 3 mg / 0.5 (3 ml) UD INH PRN (20:09)
[2018-01-20] MEDS ORDERED: Albuterol-Ipratrop 3 mg / 0.5 (3 ml) UD INH STA (21:17)
--- NOTE | 2018-01-20 22:27 | PN ---
Copied To: Hunter Mane MD Attending MD: Hunter Mane MD DATE: 01/20/2018 LOCATION: Patient in ICU, bed 421 TIME SPENT: 35 minutes. SUBJECTIVE: Patient is seen and evaluated at the bedside. Past medical, surgical, social, and family history reviewed. A 77-year-old female with history significant for chronic atrial fibrillation, hypertension, hyperlipidemia, seizure disorder, chronic headache, status post left total hip replacement, bed bound at home, admitted with multiple bilateral ischemic infarcts involving the anterior and posterior circulation, status post FOOD AND NUTRITION SERVICES ASSISTANT, in ICU for further evaluation. Overnight, lethargic and agitated, noted to have oxygen desaturation, on supplemental oxygen. Given Lasix. Repeat chest x-ray showed pulmonary vascular congestion and possible infiltrate and/or effusion in left lung. No stridor. DNR/DNI as family's wishes. This morning, remains lethargic. No response to verbal stimuli, status post Ativan and morphine for agitation. PHYSICAL EXAMINATION VITAL SIGNS: temperature 98.9, heart rate 62 to 103, irregular, blood pressure 99-151/44-100, mean arterial pressure of 60-70, respiratory rate 18-20 thoracoabdominal, and saturation 99% on non-rebreather. Intake 820, output not documented. HEAD, EYES, EARS, NOSE AND THROAT: Pupils are reactive. Conjunctivae pink. Sclerae are white. Corneal present. Conjunctival reflex present. NECK: Trachea is central. No stridor. CHEST: Bilateral breath sounds. Fine crepitations at the bases. Scattered rhonchi anteriorly and posteriorly. HEART: Rhythm irregular. No audible murmur. ABDOMEN: Bowel sounds present. Soft. EXTREMITIES: Trace edema. DP palpable. NEUROLOGIC: Unable to participate. On deep pain/noxious stimuli, moves extremities. CURRENT MEDICATIONS: Include Tylenol 650 every 6 hours p.r.n., Fioricet 1 tablet every 6 hours p.r.n. for headache, albuterol/Atrovent inhalation 3 ml via nebulizer every 6 hours, aspirin 300 mg rectally daily, Lipitor 20 mg through NG daily, Coreg 6.25 mg every 12 hours on hold, Decadron 10 mg IV every 12 hours, Lovenox 30 mg subcu every 12 hours on hold secondary to thrombocytopenia, Lamictal 100 mg p.o. daily, Synthroid 25 mcg daily, Ativan 1 mg p.o. every 6 hours p.r.n., Ativan 1 mg IV every 12 hours p.r.n. for agitation, magnesium sulfate 1 g IV every 8 hours neuropathic pain, nicardipine discontinued, Protonix 40 IV daily, prednisolone acetate 1 drop once daily, and valproate 500 mg IV every 12 hours. LABORATORY DATA: WBC 13.5, hemoglobin 13, hematocrit of 40.1, and platelet count 28. PT 14.8 and INR 1.3. D-dimer more than 5250. ABG; pH 7.31, pCO2 of 41, pO2 of 188, oxygen saturation 100% on FIO2 100%. SMA-7; sodium 148, potassium 4.2, chloride 113, CO2 of 23, blood urea nitrogen 38, creatinine 1.4, random glucose 141, calcium 8.8, total bilirubin 0.8, AST 47, ALT 29, and alkaline phosphatase 71. ProBNP 25,600. Total protein 6.9 and albumin 3.4. Urinalysis; rbc's 60 and wbc's 15. Valproic acid level 79.9. Platelet antibody pending. Microbiology; urine culture showed less than 15,000 colonies with gram-negative rods. Chest x-ray done on 01/19/2018 shows left pleural effusion, no pneumothorax. Moderate pulmonary venous congestion, airspace disease in the left lower lobe. IMPRESSION AND PLAN: 1. Neurology: A 77-year-old female status post bilateral multiple ischemic infarcts involving anterior and posterior circulation, likely embolic in origin, history of atrial fibrillation previously on new oral anticoagulants, noncompliant with medications, admitted with multiple infarcts, remains lethargic, higher risk for aspiration. Currently on Decadron 10 mg IV every 12 hours, magnesium sulfate 1 g IV every 8 hours as per Neurology for neuralgic pain. Anticoagulation on hold secondary to thrombocytopenia. Appreciate Hematology evaluation and discussion. Currently on aspirin 300 mg rectally. Follow platelet antibody level. Continue Depacon 500 mg IV every 12 hours. 2. Pulmonary: Noted chest x-ray with pulmonary vascular congestion and possible left pleural effusion/infiltrate. Overnight noted oxygen desaturation and pulmonary congestion with respiratory distress. Suspect aspiration pneumonia. Empirically on Zosyn 3.375 g IV every 6 hours, DuoNeb 3 ml via nebulizer every 6 hours p.r.n. Continue oxygen supplement. 3. Cardiac: History of atrial fibrillation with subsequent embolic events, history of noncompliance with the anticoagulation prior to admission. Anticoagulation on hold secondary to significant thrombocytopenia. 4. Gastrointestinal: Nasogastric tube to be reinserted to resume p.o. medications. Exercise caution given of thrombocytopenia. 5. Endocrine: Maintain blood sugar less than 180. History of hypothyroidism on levothyroxine. 6. Renal: Acute on chronic renal insufficiency, IV fluid at D5 half normal at 50 mL/hour. 7. Diet: resume diet once nasogastric/orogastric tube is placed Hunter Mane MD
[2018-01-21] MEDS ORDERED: Metoprolol 1 mg/ml Inj IVP STA ×3 (02:05→02:41)
[2018-01-21] MEDS ORDERED: Metoprolol 1 mg/ml Inj IVP ONE (02:07)
[2018-01-21] MEDS: Albuterol-Ipratrop 3 mg / 0.5 (3 ml) UD INH PRN (02:37)
[2018-01-21] MEDS: Piperacillin/Tazobact 3.375 GM in Sodium Chloride 0.9% 100 ML IVPB SCH ×4 (05:15→21:26)
[2018-01-21 05:47] LABS: HEMOGLOBIN 11.8 g/dL (12.0-16.0); MEAN CELL VOLUME 93.1 fl (81.0-99.0); MEAN CORPUSCULAR HEMOGLOBIN 29.8 pg (27.0-31.0); RBC 3.96 Mil/uL (3.80-5.20); RED CELL DISTRIBUTION WIDTH 14.8 % (11.5-14.5); WHITE BLOOD COUNT 13.6 K/uL (4.8-10.8)
[2018-01-21 06:39] LABS: CALCIUM 8.3 mg/dL (8.4-10.2)
[2018-01-21] MEDS: Valproate 500 MG in Sodium Chloride 0.9% 100 ML IVPB SCH ×2 (08:19→21:25)
[2018-01-21] MEDS: PrednisoLONE 1% OPTH SUSP OD SCH (08:23)
[2018-01-21] MEDS: Levothyroxine 25 MCG TAB PO SCH (08:24)
--- NOTE | 2018-01-21 10:20 | CP.PCM.PN ---
Subjective - Date & Time of Evaluation Date of Evaluation: 01/21/18 Time of Evaluation: 10:16 - Subjective Subjective: There is no change in the pt's condition, she is as lethargic as before . Responds to painful stimuli.only. Cbc showed a platelet count of 11 only7. Will transfuse her 2 units today. Objective - Vital Signs/Intake and Output Vital Signs (last 24 hours): Temp Pulse Resp BP Pulse Ox 98.8 F 137 H 27 H 120/71 95 01/21/18 08:00 01/21/18 08:13 01/21/18 08:13 01/21/18 08:13 01/21/18 08:13 Intake and Output: 01/21/18 01/21/18 06:59 18:59 Intake Total 0 Balance 0 - Medications Medications: Current Medications Acetaminophen (Tylenol 650mg/20.3ml Solution Ud) 650 mg PO Q6 PRN PRN Reason: Pain, moderate (4-7) Last Admin: 01/16/18 17:00 Dose: 650 mg Acetaminophen/Butalbital/Caffeine (Fioricet) 1 tab PO Q6 PRN PRN Reason: Headache Last Admin: 01/13/18 22:05 Dose: 1 tab Albuterol/Ipratropium (Duoneb 3 Mg/0.5 Mg (3 Ml) Ud) 3 ml INH RQ6 PRN PRN Reason: Shortness of Breath Last Admin: 01/21/18 02:37 Dose: 3 ml Albuterol/Ipratropium (Duoneb 3 Mg/0.5 Mg (3 Ml) Ud) 3 ml INH RQ6 PRN PRN Reason: Shortness of Breath Aspirin (Aspirin Supp) 300 mg [place] DAILY [facility] Last Admin: 01/21/18 08:21 Dose: Not Given Atorvastatin Calcium (Lipitor) 20 mg PO HS [facility] Last Admin: 01/15/18 21:19 Dose: 20 mg Carvedilol (Coreg) 6.25 mg PO Q12 [facility] Last Admin: 01/15/18 10:08 Dose: 6.25 mg Dexamethasone (Decadron Inj) 10 mg IV Q12H [facility] Last Admin: 01/21/18 05:14 Dose: 10 mg Enoxaparin Sodium (Lovenox) 30 mg SC Q12 [facility] PRN Reason: Protocol Last Admin: 01/18/18 10:35 Dose: Not Given Nicardipine HCl (Cardene Iv Premix) 20 mg in 200 mls @ 50 mls/hr IV .Q4H [facility]; 5 MG/HR PRN Reason: Protocol Last Admin: 01/16/18 16:00 Dose: 5 mg/hr, 50 mls/hr Valproate Sodium 500 mg/ (Sodium Chloride) 105 mls @ 100 mls/hr IVPB Q12 [facility] Last Admin: 01/21/18 08:19 Dose: 100 mls/hr Magnesium Sulfate 1 gm/ (Dextrose) 102 mls @ 204 mls/hr IVPB Q8 PRN; 1 GM/30 MIN PRN Reason: Neuropathic Pain level 4-7 Last Admin: 01/18/18 22:34 Dose: 204 mls/hr Piperacillin Sod/Tazobactam (Sod 3.375 gm/ Sodium Chloride) 100 mls @ 100 mls/ hr IVPB Q6 [facility] PRN Reason: Protocol Last Admin: 01/21/18 05:15 Dose: 100 mls/hr Dextrose/Sodium Chloride (Dextrose 5%/0.45% Ns 1000 Ml) 1,000 mls @ 42 mls/hr IV .[id number] [facility] Stop: 01/21/18 13:48 Last Admin: 01/20/18 14:37 Dose: 42 mls/hr Diltiazem HCl 125 mg/ Sodium (Chloride) 125 mls @ 5 mls/hr IV .Q24H ONE; 5 MG/ HR PRN Reason: Protocol Stop: 01/22/18 04:41 Last Titration: 01/21/18 05:44 Dose: 7.5 mg/hr, 7.5 mls/hr Lamotrigine (Lamictal) 100 mg PO DAILY [facility] Last Admin: 01/21/18 08:22 Dose: Not Given Levothyroxine Sodium (Synthroid) 25 mcg PO DAILY@0630 [facility] Last Admin: 01/21/18 08:24 Dose: Not Given Lorazepam (Ativan) 1 mg PO Q6 PRN PRN Reason: Anxiety Last Admin: 01/12/18 20:58 Dose: 1 mg Lorazepam (Ativan) 1 mg IVP Q12 PRN PRN Reason: Agitation Last Admin: 01/19/18 09:01 Dose: 1 mg Pantoprazole Sodium (Protonix Inj) 40 mg IVP DAILY [facility] Last Admin: 01/21/18 08:23 Dose: 40 mg Prednisolone Acetate (Pred Forte 1% Opht Susp) 1 drop OD DAILY [facility] Last Admin: 01/21/18 08:23 Dose: 1 drop - Labs Labs: 01/21/18 04:20 01/21/18 04:20 PT 14.8 Seconds (9.8-13.1) H 01/17/18 04:18 INR 1.3 01/17/18 04:18 APTT 28.2 Seconds (25.6-37.1) 01/16/18 13:35
--- NOTE | 2018-01-21 10:25 | CP.PCM.PN ---
Subjective - Date & Time of Evaluation Date of Evaluation: 01/21/18 Time of Evaluation: 10:24 - Subjective Subjective: Ms. Mcmanus was seen and examined at the bedside in ICU. She is lethargic, pupils are sluggishly reactive to light accommodation, grimaces and withdraws from noxious stimuli, + corneal reflex,2 mm sluggish and on downward position, on a [id number] mask, utilizing accessory muscle for breathing . She is receiving IVF and Cardizem drip for a-fib. She is a DNR/ DNI. Her platelet count is 11 schedule for platelet infusion today. Dr. Boykin will update family member Mildred regarding patient's condition.There was no untoward events overnight. Objective - Vital Signs/Intake and Output Vital Signs (last 24 hours): Temp Pulse Resp BP Pulse Ox 98.8 F 137 H 27 H 120/71 95 01/21/18 08:00 01/21/18 08:13 01/21/18 08:13 01/21/18 08:13 01/21/18 08:13 Intake and Output: 01/21/18 01/21/18 06:59 18:59 Intake Total 0 Balance 0 - Medications Medications: Current Medications Acetaminophen (Tylenol 650mg/20.3ml Solution Ud) 650 mg PO Q6 PRN PRN Reason: Pain, moderate (4-7) Last Admin: 01/16/18 17:00 Dose: 650 mg Acetaminophen/Butalbital/Caffeine (Fioricet) 1 tab PO Q6 PRN PRN Reason: Headache Last Admin: 01/13/18 22:05 Dose: 1 tab Albuterol/Ipratropium (Duoneb 3 Mg/0.5 Mg (3 Ml) Ud) 3 ml INH RQ6 PRN PRN Reason: Shortness of Breath Last Admin: 01/21/18 02:37 Dose: 3 ml Albuterol/Ipratropium (Duoneb 3 Mg/0.5 Mg (3 Ml) Ud) 3 ml INH RQ6 PRN PRN Reason: Shortness of Breath Aspirin (Aspirin Supp) 300 mg [place] DAILY [facility] Last Admin: 01/21/18 08:21 Dose: Not Given Atorvastatin Calcium (Lipitor) 20 mg PO HS [facility] Last Admin: 01/15/18 21:19 Dose: 20 mg Carvedilol (Coreg) 6.25 mg PO Q12 [facility] Last Admin: 01/15/18 10:08 Dose: 6.25 mg Dexamethasone (Decadron Inj) 10 mg IV Q12H [facility] Last Admin: 01/21/18 05:14 Dose: 10 mg Enoxaparin Sodium (Lovenox) 30 mg SC Q12 [facility] PRN Reason: Protocol Last Admin: 01/18/18 10:35 Dose: Not Given Nicardipine HCl (Cardene Iv Premix) 20 mg in 200 mls @ 50 mls/hr IV .Q4H [facility]; 5 MG/HR PRN Reason: Protocol Last Admin: 01/16/18 16:00 Dose: 5 mg/hr, 50 mls/hr Valproate Sodium 500 mg/ (Sodium Chloride) 105 mls @ 100 mls/hr IVPB Q12 [facility] Last Admin: 01/21/18 08:19 Dose: 100 mls/hr Magnesium Sulfate 1 gm/ (Dextrose) 102 mls @ 204 mls/hr IVPB Q8 PRN; 1 GM/30 MIN PRN Reason: Neuropathic Pain level 4-7 Last Admin: 01/18/18 22:34 Dose: 204 mls/hr Piperacillin Sod/Tazobactam (Sod 3.375 gm/ Sodium Chloride) 100 mls @ 100 mls/ hr IVPB Q6 [facility] PRN Reason: Protocol Last Admin: 01/21/18 05:15 Dose: 100 mls/hr Dextrose/Sodium Chloride (Dextrose 5%/0.45% Ns 1000 Ml) 1,000 mls @ 42 mls/hr IV .[id number] [facility] Stop: 01/21/18 13:48 Last Admin: 01/20/18 14:37 Dose: 42 mls/hr Diltiazem HCl 125 mg/ Sodium (Chloride) 125 mls @ 5 mls/hr IV .Q24H ONE; 5 MG/ HR PRN Reason: Protocol Stop: 01/22/18 04:41 Last Titration: 01/21/18 05:44 Dose: 7.5 mg/hr, 7.5 mls/hr Lamotrigine (Lamictal) 100 mg PO DAILY [facility] Last Admin: 01/21/18 08:22 Dose: Not Given Levothyroxine Sodium (Synthroid) 25 mcg PO DAILY@0630 [facility] Last Admin: 08/08/18 08:24 Dose: Not Given Lorazepam (Ativan) 1 mg PO Q6 PRN PRN Reason: Anxiety Last Admin: 01/12/18 20:58 Dose: 1 mg Lorazepam (Ativan) 1 mg IVP Q12 PRN PRN Reason: Agitation Last Admin: 01/19/18 09:01 Dose: 1 mg Pantoprazole Sodium (Protonix Inj) 40 mg IVP DAILY [facility] Last Admin: 01/21/18 08:23 Dose: 40 mg Prednisolone Acetate (Pred Forte 1% Opht Susp) 1 drop OD DAILY [facility] Last Admin: 01/21/18 08:23 Dose: 1 drop - Labs Labs: 01/21/18 04:20 01/21/18 04:20 PT 14.8 Seconds (9.8-13.1) H 01/17/18 04:18 INR 1.3 01/17/18 04:18 APTT 28.2 Seconds (25.6-37.1) 01/16/18 13:35 - Constitutional Appears: No Acute Distress - Head Exam Head Exam: NORMAL INSPECTION - Eye Exam Pupil Exam: Miosis Additional comments: 2 mm sluggish and on downward position. - Neurological Exam Neuro motor strength exam: Left Upper Extremity: 0, Right Upper Extremity: 0, Left Lower Extremity: 0, Right Lower Extremity: 0 Additional comments: lethargic neurological unchanged from previous examination. Assessment and Plan (1) Ischemic stroke Assessment & Plan: Continue all current medical regimen including holding any anticoagulant due to low platelet count. Patient is schedule for platelet transfusion.Recommend palliative care, keep head of bed elevated at least 30 degrees, normothermia, hydration, and follow any recommendation from cardiology and hematology regarding treatment for a-fib and thrombocytopenia. Status: Acute
--- NOTE | 2018-01-21 10:43 | PCM.PROC ---
Procedures Attestation:: I certify that I have explained the specified Operation(s) or Procedure(s), risks, benefits and reasonable alternatives to the Patient and/or other person responsible. The opportunity was given to ask questions and all questions answered - Central Line Placement Right Femoral Triple Lumen Catheter Aseptic technique was employed throughout the procedure: Full sterile barriers ( mask, hair cover, sterile gown, sterile gloves), Full body sterile drape, Chloraprep Antiseptic: 2 minute prep for Femoral CVP Time Out Performed: Yes Pt. Placed on Pulse Ox Monitor: Yes Central Line Prep: Chlorhexidine-Alcohol Combination Local Anesthesia Used: Lidocaine 1% Amount of Anesthesia Used (mls): 5 Ultrasound Used for Placement: No Central Line Lumen Inserted: triple Central Line Length: 20 cm Post Procedure: Sutured in Place, Good Blood Return, All Ports Aspirated, Flushed, Capped, Sterile Dressing Applied Secured by: Suture Post procedure dressing: Chlorhexidine disc (Biopatch) Post Procedure X-Ray: No Patient Tolerated Procedure: Well Immediate Complications: None Additional Comments: Femoral site chosen due to coagulopathy. Informed and signed consent obtained from patient's son Chance.
--- NOTE | 2018-01-21 11:11 | CP.CCUPN ---
CCU Subjective - Physician Review Subjective (Free Text): Lethargic and non-responsive to verbal commands, not interactive, but purposefully moves R arm to grain after femoral TLC placement. Still Rapid A fib at 130s even after Cardizem IV bolus. Other vitals and I/O's reviewed. No fever spikes overnight. Does not appear distressed. ROS: No other pertinent negs or positives on 10+ system review obtainable due non-verbal status now. PMSFH: All other Nursing and physician documentation reviewed to date; no new pertinent info noted relevant to current medical problems. EXAM- HEENT: no icterus, no gaze preference, Pupils 3 mm and reactive, Gag absent. no facial asymmetry, NECK: No JVD visible, supple, carotids equal upstroke bilat/no bruits CHEST: decreased BS bases, no wheezes audible HEART: Irregular, distant, tachy S1S2, no rubs or murmurs ABD: soft, no distention, no tympany, no palp tenderness, BS hypoactive EXT: Trace edema; no peripheral/ digital cyanosis, no calf tenderness or palpable cords, distal pulses intact and symmetrical. NEURO: minimal withdrawal of legs, moves RUE and resists when stimulated. SKIN: no rashes, warm and dry. LABS: WBC= 13.6 HGB= 11.8 PLTs= 11K INR= 1.3 on 01/17/18 Fib= 158 on 01/16/18 Gl=343 K= 3.9 LC=823 HCO3= 23 BUN/Cr= 51/1.7 BS= 173 IMPRESSION / MAJOR PROBLEMS NOW: 1. Acute CVA with new ICH versus Hemorrhagic Stroke conversion 2. Uncontrolled / Accelerated HTN 3. Mild Azotemia / Dehydration 4. Thrombocytopenia PLAN: 1. Cardizem drip ongoing. Hold Synthroid, and aware that Coreg has been on hold as well. Maintain scheduled beta blockade with IV Metoprolol for now. 2. Needs free water or D5W infusion now. Increasing Azotemia noted. 3. Platelets ordered as per hematology. H.I.T. Ab study pending. 4. TLC placed in the interim for IV access, due to poor peripheral IV access. 5. Cautious resumption of BZDPs for agitation prn and prevent withdrawal. CCU Objective - Vital Signs / Intake & Output Vital Signs (Last 4 hours): Vital Signs Temp Pulse Resp BP Pulse Ox 01/21/18 08:13 137 H 27 H 120/71 95 01/21/18 08:00 98.8 F 118 H 18 106/55 L 96 Intake and Output (Last 8hrs): Intake & Output 01/20/18 01/21/18 01/21/18 22:59 06:59 14:59 Intake Total 584 0 Output Total 200 Balance 384 0 Intake: IV 84 0 Intake, Piggyback 500 Output: Urine 200 Urine, Voided 200
--- NOTE | 2018-01-21 11:14 | PN ---
Copied To: Felice Al MD Attending MD: Felice Al MD DATE: 01/21/2018 SUBJECTIVE: The patient seen and examined. Interim events noted. Consults noted and appreciated. The patient remains in intensive care unit. The patient is noncommunicative and no specific issue at present reported by nursing staff, although the patient had episode of tachycardia requiring Cardizem drip overnight. The patient is not able to provide any informative history or review of systems. PHYSICAL EXAMINATION: GENERAL: The patient is in no acute distress. VITAL SIGNS: Stable. Heart rate right now is 110, blood pressure 120/80. HEART: S1, S2. Tachycardic. Irregular. LUNGS: Good bilateral air exchange. ABDOMEN: Soft and nontender. EXTREMITIES: No edema. No calf swelling. No tenderness. No acute ischemia. SERVICE DESK MANAGER: Exam is essentially unchanged. DIAGNOSTIC DATA: Available diagnostic data reviewed. Telemetry monitoring revealed tachycardia. ASSESSMENT AND PLAN: Overall, the patient's functional prognosis remains poor. Plan as ordered. Felice Al MD
[2018-01-21] MEDS ORDERED: Chlorhexidine Gluconate 1 APPL/PKT TP ONE (12:01)
--- NOTE | 2018-01-21 12:29 | CP.PCM.PN ---
Subjective - Date & Time of Evaluation Date of Evaluation: 01/21/18 Time of Evaluation: 15:00 - Subjective Subjective: drowsy and lethargic Objective - Vital Signs/Intake and Output Vital Signs (last 24 hours): Temp Pulse Resp BP Pulse Ox 99.3 F 128 H 27 H 138/84 99 01/21/18 11:56 01/21/18 11:56 01/21/18 11:56 01/21/18 11:56 01/21/18 11:15 Intake and Output: 01/21/18 01/21/18 06:59 18:59 Intake Total 0 20 Balance 0 20 - Medications Medications: Current Medications Acetaminophen (Tylenol 650mg/20.3ml Solution Ud) 650 mg PO Q6 PRN PRN Reason: Pain, moderate (4-7) Last Admin: 01/16/18 17:00 Dose: 650 mg Acetaminophen (Tylenol 650 Mg Supp) 650 mg NM Q6 PRN PRN Reason: Fever >100.4 F Acetaminophen/Butalbital/Caffeine (Fioricet) 1 tab PO Q6 PRN PRN Reason: Headache Last Admin: 01/13/18 22:05 Dose: 1 tab Albuterol/Ipratropium (Duoneb 3 Mg/0.5 Mg (3 Ml) Ud) 3 ml INH RQ6 PRN PRN Reason: Shortness of Breath Last Admin: 01/21/18 02:37 Dose: 3 ml Albuterol/Ipratropium (Duoneb 3 Mg/0.5 Mg (3 Ml) Ud) 3 ml INH RQ6 PRN PRN Reason: Shortness of Breath Aspirin (Aspirin Supp) 300 mg NM DAILY [facility] Last Admin: 01/21/18 08:21 Dose: Not Given Atorvastatin Calcium (Lipitor) 20 mg PO HS [facility] Last Admin: 01/15/18 21:19 Dose: 20 mg Carvedilol (Coreg) 6.25 mg PO Q12 [facility] Last Admin: 01/15/18 10:08 Dose: 6.25 mg Dexamethasone (Decadron Inj) 10 mg IV Q12H [facility] Last Admin: 01/21/18 05:14 Dose: 10 mg Enoxaparin Sodium (Lovenox) 30 mg SC Q12 [facility] PRN Reason: Protocol Last Admin: 01/18/18 10:35 Dose: Not Given Nicardipine HCl (Cardene Iv Premix) 20 mg in 200 mls @ 50 mls/hr IV .Q4H [facility]; 5 MG/HR PRN Reason: Protocol Last Admin: 01/16/18 16:00 Dose: 5 mg/hr, 50 mls/hr Valproate Sodium 500 mg/ (Sodium Chloride) 105 mls @ 100 mls/hr IVPB Q12 [facility] Last Admin: 01/21/18 08:19 Dose: 100 mls/hr Magnesium Sulfate 1 gm/ (Dextrose) 102 mls @ 204 mls/hr IVPB Q8 PRN; 1 GM/30 MIN PRN Reason: Neuropathic Pain level 4-7 Last Admin: 01/18/18 22:34 Dose: 204 mls/hr Piperacillin Sod/Tazobactam (Sod 3.375 gm/ Sodium Chloride) 100 mls @ 100 mls/ hr IVPB Q6 [facility] PRN Reason: Protocol Last Admin: 01/21/18 10:29 Dose: 100 mls/hr Dextrose/Sodium Chloride (Dextrose 5%/0.45% Ns 1000 Ml) 1,000 mls @ 42 mls/hr IV .[id number] [facility] Stop: 01/21/18 13:48 Last Admin: 01/20/18 14:37 Dose: 42 mls/hr Diltiazem HCl 125 mg/ Sodium (Chloride) 125 mls @ 5 mls/hr IV .Q24H ONE; 5 MG/ HR PRN Reason: Protocol Stop: 01/22/18 04:41 Last Titration: 01/21/18 05:44 Dose: 7.5 mg/hr, 7.5 mls/hr Lamotrigine (Lamictal) 100 mg PO DAILY [facility] Last Admin: 01/21/18 08:22 Dose: Not Given Levothyroxine Sodium (Synthroid) 25 mcg PO DAILY@0630 [facility] Last Admin: 01/21/18 08:24 Dose: Not Given Lorazepam (Ativan) 1 mg PO Q6 PRN PRN Reason: Anxiety Last Admin: 01/12/18 20:58 Dose: 1 mg Lorazepam (Ativan) 1 mg IVP Q12 PRN PRN Reason: Agitation Last Admin: 01/19/18 09:01 Dose: 1 mg Pantoprazole Sodium (Protonix Inj) 40 mg IVP DAILY [facility] Last Admin: 01/21/18 08:23 Dose: 40 mg Prednisolone Acetate (Pred Forte 1% Opht Susp) 1 drop OD DAILY [facility] Last Admin: 01/21/18 08:23 Dose: 1 drop - Labs Labs: 01/21/18 04:20 01/21/18 04:20 PT 14.8 Seconds (9.8-13.1) H 01/17/18 04:18 INR 1.3 01/17/18 04:18 APTT 28.2 Seconds (25.6-37.1) 01/16/18 13:35 - Constitutional Appears: In Acute Distress - Head Exam Head Exam: ATRAUMATIC, NORMOCEPHALIC - Eye Exam Eye Exam: EOMI, Normal appearance, PERRL Pupil Exam: NORMAL ACCOMODATION, PERRL - ENT Exam ENT Exam: Mucous Membranes Moist, Normal Exam - Neck Exam Neck Exam: Full ROM, Normal Inspection. absent: Lymphadenopathy - Respiratory Exam Respiratory Exam: Clear to Ausculation Bilateral, NORMAL BREATHING PATTERN - Cardiovascular Exam Cardiovascular Exam: Irregular Rhythm, +S1, +S2, Murmur - GI/Abdominal Exam GI & Abdominal Exam: Soft, Normal Bowel Sounds. absent: Tenderness - Extremities Exam Extremities Exam: Full ROM, Normal Capillary Refill, Normal Inspection. absent : Joint Swelling, Pedal Edema - Back Exam Back Exam: NORMAL INSPECTION - Neurological Exam Neurological Exam: Altered - Psychiatric Exam Psychiatric exam: Normal Affect, Normal Mood - Skin Skin Exam: Dry, Intact, Normal Color, Warm Assessment and Plan (1) Atrial fibrillation Status: Acute (2) CVA (cerebrovascular accident due to intracerebral hemorrhage) Status: Acute (3) Mental status change Status: Acute (4) Elevated troponin Status: Acute (5) HTN (hypertension) Status: Acute (6) Thrombocytopenia Status: Acute
[2018-01-21] MEDS ORDERED: Dextrose 5%/0.45% NS 1,000 ML IV SCH (18:45)
[2018-01-22] MEDS: Piperacillin/Tazobact 3.375 GM in Sodium Chloride 0.9% 100 ML IVPB SCH ×4 (03:50→21:18)
[2018-01-22 06:14] LABS: HEMOGLOBIN 11.2 g/dL (12.0-16.0); MEAN CELL VOLUME 93.6 fl (81.0-99.0); MEAN CORPUSCULAR HEMOGLOBIN 29.8 pg (27.0-31.0); MEAN CORPUSCULAR HGB CONC 31.8 g/dL (33.0-37.0); RBC 3.75 Mil/uL (3.80-5.20); WHITE BLOOD COUNT 21.7 K/uL (4.8-10.8)
[2018-01-22 06:58] LABS: ALBUMIN 3.2 g/dL (3.5-5.0); CALCIUM 8.4 mg/dL (8.4-10.2)
--- NOTE | 2018-01-22 07:43 | CARD ---
APPROVED REPORT Date of service: 01/21/2018 <Conclusion> Atrial fibrillation with rapid ventricular response Right bundle branch block T wave abnormality, consider inferolateral ischemia Abnormal ECG
--- NOTE | 2018-01-22 08:17 | CP.PCM.PN ---
Subjective - Date & Time of Evaluation Date of Evaluation: 01/22/18 Time of Evaluation: 08:13 - Subjective Subjective: Ms. Mcmanus was seen and examined at the bedside in ICU. She is lethargic, pupils are sluggishly reactive to light accommodation, grimaces and withdraws from noxious stimuli, + corneal reflex,2 mm sluggish, on a [id number] mask, utilizing accessory muscle for breathing . She is receiving Cardizem drip for a- fib. She is a DNR/ DNI. Her latest platelet count is 40 post platelet transfusion. Patient has purwick with noticeable hematuria, Hematology is on board.There was no untoward events overnight. Objective - Vital Signs/Intake and Output Vital Signs (last 24 hours): Temp Pulse Resp BP Pulse Ox 98.5 F 128 H 15 114/65 100 01/22/18 04:00 01/22/18 06:00 01/22/18 06:00 01/22/18 06:00 01/22/18 06:00 Intake and Output: 01/22/18 01/22/18 06:59 18:59 Intake Total 100 Output Total 300 Balance -200 - Medications Medications: Current Medications Acetaminophen (Tylenol 650mg/20.3ml Solution Ud) 650 mg PO Q6 PRN PRN Reason: Pain, moderate (4-7) Last Admin: 01/16/18 17:00 Dose: 650 mg Acetaminophen (Tylenol 650 Mg Supp) [address] Q6 PRN PRN Reason: Fever >100.4 F Acetaminophen/Butalbital/Caffeine (Fioricet) 1 tab PO Q6 PRN PRN Reason: Headache Last Admin: 01/13/18 22:05 Dose: 1 tab Albuterol/Ipratropium (Duoneb 3 Mg/0.5 Mg (3 Ml) Ud) 3 ml INH RQ6 PRN PRN Reason: Shortness of Breath Last Admin: 01/21/18 02:37 Dose: 3 ml Albuterol/Ipratropium (Duoneb 3 Mg/0.5 Mg (3 Ml) Ud) 3 ml INH RQ6 PRN PRN Reason: Shortness of Breath Aspirin (Aspirin Supp) [address] DAILY [facility] Last Admin: 01/21/18 08:21 Dose: Not Given Atorvastatin Calcium (Lipitor) 20 mg PO HS [facility] Last Admin: 01/15/18 21:19 Dose: 20 mg Carvedilol (Coreg) 6.25 mg PO Q12 [facility] Last Admin: 01/15/18 10:08 Dose: 6.25 mg Dexamethasone (Decadron Inj) 10 mg IV Q12H [facility] Last Admin: 01/22/18 03:52 Dose: 10 mg Enoxaparin Sodium (Lovenox) 30 mg SC Q12 [facility] PRN Reason: Protocol Last Admin: 01/18/18 10:35 Dose: Not Given Nicardipine HCl (Cardene Iv Premix) 20 mg in 200 mls @ 50 mls/hr IV .Q4H [facility]; 5 MG/HR PRN Reason: Protocol Last Admin: 01/16/18 16:00 Dose: 5 mg/hr, 50 mls/hr Valproate Sodium 500 mg/ (Sodium Chloride) 105 mls @ 100 mls/hr IVPB Q12 [facility] Last Admin: 01/21/18 21:25 Dose: 100 mls/hr Magnesium Sulfate 1 gm/ (Dextrose) 102 mls @ 204 mls/hr IVPB Q8 PRN; 1 GM/30 MIN PRN Reason: Neuropathic Pain level 4-7 Last Admin: 01/18/18 22:34 Dose: 204 mls/hr Piperacillin Sod/Tazobactam (Sod 3.375 gm/ Sodium Chloride) 100 mls @ 100 mls/ hr IVPB Q6 [facility] PRN Reason: Protocol Last Admin: 01/22/18 03:50 Dose: 100 mls/hr Diltiazem HCl 100 mg/ Sodium (Chloride) 100 mls @ 5 mls/hr IV .Q20H ONE; 5 MG/ HR PRN Reason: Protocol Stop: 01/22/18 12:44 Last Titration: 01/22/18 03:56 Dose: 12.5 mg/hr, 12.5 mls/hr Dextrose (Dextrose 5% In Water 1000 Ml) 1,000 mls @ 100 mls/hr IV .Q10H [facility] Stop: 01/23/18 06:49 Lamotrigine (Lamictal) 100 mg PO DAILY [facility] Last Admin: 01/21/18 08:22 Dose: Not Given Levothyroxine Sodium (Synthroid) 25 mcg PO DAILY@0630 [facility] Last Admin: 01/21/18 08:24 Dose: Not Given Lorazepam (Ativan) 1 mg PO Q6 PRN PRN Reason: Anxiety Last Admin: 01/12/18 20:58 Dose: 1 mg Lorazepam (Ativan) 1 mg IVP Q12 PRN PRN Reason: Agitation Last Admin: 01/19/18 09:01 Dose: 1 mg Morphine Sulfate (Morphine) 4 mg IVP Q6 PRN PRN Reason: Agitation Last Admin: 01/22/18 01:26 Dose: 4 mg Pantoprazole Sodium (Protonix Inj) 40 mg IVP DAILY [facility] Last Admin: 01/21/18 08:23 Dose: 40 mg Prednisolone Acetate (Pred Forte 1% Opht Susp) 1 drop OD DAILY [facility] Last Admin: 01/21/18 08:23 Dose: 1 drop - Labs Labs: 01/22/18 04:20 01/22/18 04:20 PT 14.8 Seconds (9.8-13.1) H 01/17/18 04:18 INR 1.3 01/17/18 04:18 APTT 28.2 Seconds (25.6-37.1) 01/16/18 13:35 - Constitutional Appears: No Acute Distress - Head Exam Head Exam: NORMAL INSPECTION - Eye Exam Pupil Exam: Miosis Additional comments: 2 mm sluggish - Neurological Exam Neuro motor strength exam: Left Upper Extremity: 0, Right Upper Extremity: 0, Left Lower Extremity: 0, Right Lower Extremity: 0 Additional comments: neurological unchanged from previous examination. Assessment and Plan (1) Ischemic stroke Assessment & Plan: Continue all current medical regimen including holding any anticoagulant due to low platelet count. Patient is schedule for platelet transfusion.Recommend palliative care, keep head of bed elevated at least 30 degrees, normothermia, hydration, and follow any recommendation from cardiology and hematology regarding treatment for a-fib. Status: Acute
[2018-01-22] MEDS: Valproate 500 MG in Sodium Chloride 0.9% 100 ML IVPB SCH ×2 (09:40→21:19)
[2018-01-22] MEDS: PrednisoLONE 1% OPTH SUSP OD SCH (09:41)
--- NOTE | 2018-01-22 10:38 | CP.CCUPN ---
CCU Subjective - Physician Review Subjective (Free Text): Overall neuro-mental status remains unchanged, less moaning, but she did receive a dose of Morphine overnight. Lethargic and non-responsive to verbal commands, not interactive, but purposefully moves R arm. Still Rapid A fib at 130s even after increasing Cardizem IV at 12.5mg /hr. Other vitals and I/O's reviewed. No fever spikes overnight. ROS: No other pertinent negs or positives on 10+ system review obtainable due non-verbal status now. PMSFH: All other Nursing and physician documentation reviewed to date; no new pertinent info noted relevant to current medical problems. EXAM- HEENT: no icterus, no gaze preference, Pupils 3 mm and reactive, Gag absent. no facial asymmetry, NECK: No JVD visible, supple, carotids equal upstroke bilat/no bruits CHEST: decreased BS bases, no wheezes audible HEART: Irregular, distant, tachy S1S2, no rubs or murmurs ABD: soft, no distention, no tympany, no palp tenderness, BS hypoactive EXT: Trace edema; no peripheral/ digital cyanosis, no calf tenderness or palpable cords, distal pulses intact and symmetrical. NEURO: minimal withdrawal of legs, moves RUE and resists when stimulated. SKIN: no rashes, warm and dry. LABS: WBC= 21.7 HGB= 11.2 PLTs= 40K Ls=588 K= 4.1 GZ=786 HCO3= 25 BUN/Cr= 51/16 BS= 183 IMPRESSION / MAJOR PROBLEMS NOW: 1. Acute CVA with new ICH versus Hemorrhagic Stroke conversion 2. Uncontrolled / Accelerated HTN 3. Mild Azotemia / Dehydration 4. Thrombocytopenia PLAN: 1. PO Coreg has been hold over the last several days due to inability to resume PO meds. Cardizem appears ineffective at controlling VR of rapid A Fib, at 130s. Will use IV Metoprolol for rate control and schedule ATC if BP tolerates. 2. Maintain Neurochecks, seizure precautions, HOB elevation, also on IV Decadron as per Neuro. Prognosis appears poor. Family ( all 9 children ) has no consensus opinion on further supportive care versus Hospice evaluation. DNR/DNI has been re-confirmed. May need a family meeting. 3. Platelets at expected levels post- transfusion. 4. More hypernatremic despite hypotonic fluids, now changed to plain D5W. Best if an NGT could be placed and free water administration can be given as well as enteral nutritional support.
[2018-01-22] MEDS: Metoprolol 1 mg/ml Inj IVP SCH ×3 (11:25→21:09)
--- NOTE | 2018-01-22 12:13 | PN ---
Copied To: Felice Al MD Attending MD: Felice Al MD DATE: 01/22/2018 SUBJECTIVE: The patient seen and examined. Interim events noted. Consults noted and appreciated. Cardiology, Infectious Disease, splunk dashboard developer consult noted and appreciated. The patient remains in intensive care unit, not able to provide informative history or review of systems. Neurology followup noted and appreciated. PHYSICAL EXAMINATION: GENERAL: The patient remains in intensive care unit. No acute respiratory distress noted. VITAL SIGNS: Temperature afebrile, pulse 106, respirations 18, blood pressure 130/76. HEENT: Pupils are sluggishly reactive. No JVD. No thyromegaly. No sign of any trauma. HEART: S1, S2. Irregular and tachycardic. LUNGS: Good bilateral air exchange. ABDOMEN: Soft and nontender. EXTREMITIES: No calf swelling. No tenderness. No acute ischemia. REPAIRER CYLINDER HEADS: Exam is essentially unchanged. DIAGNOSTIC DATA: Available diagnostic data reviewed. Telemetry monitoring reveals AFib with rapid ventricular rate. ASSESSMENT AND PLAN: Plan as ordered. Overall, the patient's general condition is critical. Long-term prognosis is poor. Felice Al MD
[2018-01-22] MEDS ORDERED: Metoprolol 1 mg/ml Inj IVP STA (13:44)
[2018-01-22] MEDS: Albuterol-Ipratrop 3 mg / 0.5 (3 ml) UD INH PRN (14:07)
[2018-01-22 15:00] LABS: ABG ALLEN TEST YES; ARTERIAL BLOOD GAS O2 SAT 88.2 % (95-98); ARTERIAL BLOOD GAS PCO2 41 mm/Hg (35-45); ARTERIAL BLOOD GAS PH 7.34 (7.35-7.45); ARTERIAL BLOOD GAS PO2 62 mm/Hg (80-100); ARTERIAL BLOOD GAS TCO2 23.4 mmol/L (22-28)
--- NOTE | 2018-01-22 15:11 | CP.PCM.PCO ---
Physician Communication Note - Physician Communication Note Physician Communication Note: See Below: Addendum Addendum: Called by Nurse for onset of resp distress with labored breathing and upper airway rhonchi, suctioned by Nurse with bloody nasal secretions and oral secretions; SPo2 78-81 on 10 LPM face mask. RR= 42, HR 130s in AFib after 2 doses of IV Lopressor and off Cardizem drip. Nasopharyngeal airway placed, examination of nose and oropharynx shows no active bleeding or oozing. Yankauer suctioning performed and more blood tinged secretions obtained upon deeper oropharynx and moreno-upper tracheal suctioning. Clearance of upper rhonchorous sounds achieved and best SPO2 was 88% on face mask. Decision made to try HFNC as she is DNR DNI. CHIP DRIER airway kept in place via R nares to prevent tongue obstruction. Initial HFNC settings are 40 LPM with 100 % oxygen at 33 C degrees, best observed SPO2 via forehead sensor is 97%, with improvement in tachypnea, RR down to 21, and HR at 114 in AFib. Son of daughter Mildred at the bedside and discussed current clinical status and events with him.
[2018-01-22 22:25] VITALS: O2SAT 100
[2018-01-23] MEDS: Metoprolol 1 mg/ml Inj IVP SCH ×2 (04:16→09:13)
[2018-01-23] MEDS: Piperacillin/Tazobact 3.375 GM in Sodium Chloride 0.9% 100 ML IVPB SCH ×2 (04:17→09:15)
[2018-01-23 05:46] LABS: HEMOGLOBIN 11.4 g/dL (12.0-16.0); MEAN CELL VOLUME 93.5 fl (81.0-99.0); MEAN CORPUSCULAR HEMOGLOBIN 29.9 pg (27.0-31.0); RBC 3.82 Mil/uL (3.80-5.20); RED CELL DISTRIBUTION WIDTH 15.3 % (11.5-14.5); WHITE BLOOD COUNT 23.3 K/uL (4.8-10.8)
[2018-01-23 06:01] LABS: ALBUMIN 3.1 g/dL (3.5-5.0); CALCIUM 8.4 mg/dL (8.4-10.2)
--- NOTE | 2018-01-23 08:47 | CP.PCM.PN ---
Subjective - Date & Time of Evaluation Date of Evaluation: 01/23/18 Time of Evaluation: 08:40 - Subjective Subjective: Ms. Mcmanus was seen and examined at the bedside in ICU. She is stuporous this am, pupils not reactive to light accommodation, fixed, but with + corneal reflex, Her reaction to noxious stimuli is diminish, GCS- 4T, on high flow oxygen saturating at 100%. She remains on a-fib and with hematuria still present. The patient remains on DNR/DNI. Dr. Boykin spoke with the patient's eldest daughter at length yesterday. The patient had an episode of respiratory distress yesterday, wherein bloody secretions was suctioned and placed on a high flow oxygen. Objective - Vital Signs/Intake and Output Vital Signs (last 24 hours): Temp Pulse Resp BP Pulse Ox 98.4 F 124 H 19 163/61 H 100 01/23/18 08:00 01/23/18 08:00 01/23/18 08:29 01/23/18 08:00 01/23/18 08:00 Intake and Output: 01/23/18 01/23/18 06:59 18:59 Intake Total 1300 Balance 1300 - Medications Medications: Current Medications Acetaminophen (Tylenol 650mg/20.3ml Solution Ud) 650 mg PO Q6 PRN PRN Reason: Pain, moderate (4-7) Last Admin: 01/16/18 17:00 Dose: 650 mg Acetaminophen (Tylenol 650 Mg Supp) 650 mg [place] Q6 PRN PRN Reason: Fever >100.4 F Acetaminophen/Butalbital/Caffeine (Fioricet) 1 tab PO Q6 PRN PRN Reason: Headache Last Admin: 01/13/18 22:05 Dose: 1 tab Albuterol/Ipratropium (Duoneb 3 Mg/0.5 Mg (3 Ml) Ud) 3 ml INH RQ6 PRN PRN Reason: Shortness of Breath Last Admin: 01/22/18 14:07 Dose: 3 ml Albuterol/Ipratropium (Duoneb 3 Mg/0.5 Mg (3 Ml) Ud) 3 ml INH RQ6 PRN PRN Reason: Shortness of Breath Aspirin (Aspirin Supp) 300 mg PA DAILY [facility] Last Admin: 01/22/18 09:39 Dose: Not Given Atorvastatin Calcium (Lipitor) 20 mg PO HS [facility] Last Admin: 01/15/18 21:19 Dose: 20 mg Carvedilol (Coreg) 6.25 mg PO Q12 [facility] Last Admin: 01/15/18 10:08 Dose: 6.25 mg Enoxaparin Sodium (Lovenox) 30 mg SC Q12 [facility] PRN Reason: Protocol Last Admin: 01/18/18 10:35 Dose: Not Given Nicardipine HCl (Cardene Iv Premix) 20 mg in 200 mls @ 50 mls/hr IV .Q4H [facility]; 5 MG/HR PRN Reason: Protocol Last Admin: 01/16/18 16:00 Dose: 5 mg/hr, 50 mls/hr Valproate Sodium 500 mg/ (Sodium Chloride) 105 mls @ 100 mls/hr IVPB Q12 [facility] Last Admin: 01/22/18 21:19 Dose: 100 mls/hr Magnesium Sulfate 1 gm/ (Dextrose) 102 mls @ 204 mls/hr IVPB Q8 PRN; 1 GM/30 MIN PRN Reason: Neuropathic Pain level 4-7 Last Admin: 01/18/18 22:34 Dose: 204 mls/hr Piperacillin Sod/Tazobactam (Sod 3.375 gm/ Sodium Chloride) 100 mls @ 100 mls/ hr IVPB Q6 [facility] PRN Reason: Protocol Last Admin: 01/23/18 04:17 Dose: 100 mls/hr Lamotrigine (Lamictal) 100 mg PO DAILY [facility] Last Admin: 01/22/18 09:10 Dose: Not Given Levothyroxine Sodium (Synthroid) 25 mcg PO DAILY@0630 [facility] Last Admin: 01/21/18 08:24 Dose: Not Given Lorazepam (Ativan) 1 mg PO Q6 PRN PRN Reason: Anxiety Last Admin: 01/12/18 20:58 Dose: 1 mg Metoprolol Tartrate (Lopressor) 5 mg IVP Q6 [facility] Last Admin: 01/23/18 04:16 Dose: 5 mg Morphine Sulfate (Morphine) 4 mg IVP Q6 PRN PRN Reason: Agitation Last Admin: 01/23/18 05:41 Dose: 4 mg Pantoprazole Sodium (Protonix Inj) 40 mg IVP DAILY [facility] Last Admin: 01/22/18 09:41 Dose: 40 mg Prednisolone Acetate (Pred Forte 1% Opht Susp) 1 drop OD DAILY [facility] Last Admin: 01/22/18 09:41 Dose: 1 drop - Labs Labs: 01/23/18 05:10 01/23/18 05:10 PT 14.8 Seconds (9.8-13.1) H 01/17/18 04:18 INR 1.3 01/17/18 04:18 APTT 28.2 Seconds (25.6-37.1) 01/16/18 13:35 - Constitutional Appears: No Acute Distress - Head Exam Head Exam: NORMAL INSPECTION - Eye Exam Pupil Exam: Fixed Additional comments: 2 mm - Neurological Exam Neuro motor strength exam: Left Upper Extremity: 0, Right Upper Extremity: 0, Left Lower Extremity: 0, Right Lower Extremity: 0 Additional comments: GCS- 4T Assessment and Plan (1) Ischemic stroke Assessment & Plan: Continue all current medical regimen. With ethe results of the conversation of Dr. Boykin, and Dr Ambrosio with the family, the family decided to placed the patient under hospice care. Neurology is signing off from this case. Please re-consult if there is any changes. Status: Acute
[2018-01-23] MEDS: Valproate 500 MG in Sodium Chloride 0.9% 100 ML IVPB SCH (09:12)
[2018-01-23] MEDS: PrednisoLONE 1% OPTH SUSP OD SCH (09:14)
[2018-01-23 12:18] VITALS: BP 107/61; PULSE 123; TEMP 98.9
--- NOTE | 2018-01-23 12:50 | CP.PCM.PCO ---
Addendum Addendum: Patient was seen early this morning with Dr. Al; she was unresponsive to verbal and nonpainful stimuli. Around 11:50 am, received call from RN that hospice nurse from [facility] came to evaluate patient and spoke to pt's family. Pt was accepted for hospice care; and her daughter Mildred signed consent. Pt to be discharged from ICU to inpatient hospice care, and hospice orders will be placed as recommended, and as written in pt's chart. Dr. Al made aware as well.
--- NOTE | 2018-01-23 12:54 | PN ---
Copied To: Felice Al MD Attending MD: Felice Al MD DATE: 01/23/2018 SUBJECTIVE: The patient is seen and examined. Interim events noted. Consults noted and appreciated. Family has opted for hospice care. The patient remains in intensive care unit. She is not able to provide informative history or review of system. The patient is noncommunicating. PHYSICAL EXAMINATION: GENERAL: The patient is in no acute distress. VITAL SIGNS: Stable, although the patient is a little bit tachycardic with heart rate about 110 to 130. HEART: S1 and S2, normal and regular. LUNGS: Good bilateral air exchange. ABDOMEN: Soft and nontender. EXTREMITIES: No edema. No calf swelling. No tenderness. No acute ischemia. TRADE EMBALMER: Exam is essentially unchanged. DIAGNOSTIC DATA: Available diagnostic data reviewed. Telemetry monitoring does not reveal significant arrhythmias. ASSESSMENT AND PLAN: Case discussed with heavy cleaner. The patient is for hospice care. Plan as ordered. Felice Al MD
[2018-01-23 13:18] VITALS: RESP 21
== END 2018-01-23 14:15 | disposition hospice, inpatient (51) | DRG 64 ==
LOC: H.ER 10:28 → H.ERHOLD 14:50 → H.TEL 18:31 → H.ICU/CCU 01-16 13:31
PROVIDERS: ADMIT Internal Medicine; ATTEND Internal Medicine
PROC: 3E0234Z Introduction of Serum, Toxoid and Vaccine into Muscle, Percutaneous Approach (ICD-10-PCS; 2018-01-12)
PROC: 6A551Z2 Pheresis of Platelets, Multiple (ICD-10-PCS; principal; 2018-01-21)
PROC: 06HY33Z Insertion of Infusion Device into Lower Vein, Percutaneous Approach (ICD-10-PCS; 2018-01-21)
DX: I63.432 Cerebral infarction due to embolism of left posterior cerebral artery (principal); I21.4 Non-ST elevation (NSTEMI) myocardial infarction; I47.2 Ventricular tachycardia; G40.209 Localization-related (focal) (partial) symptomatic epilepsy and epileptic syndromes with complex partial seizures, not intractable, without status epilepticus; E87.0 Hyperosmolality and hypernatremia; I48.2 Chronic atrial fibrillation; D69.59 Other secondary thrombocytopenia; I25.10 Atherosclerotic heart disease of native coronary artery without angina pectoris; I10 Essential (primary) hypertension; E86.0 Dehydration; E03.9 Hypothyroidism, unspecified; G43.909 Migraine, unspecified, not intractable, without status migrainosus; R29.712 NIHSS score 12; E78.5 Hyperlipidemia, unspecified; E78.00 Pure hypercholesterolemia, unspecified; N28.9 Disorder of kidney and ureter, unspecified; Z53.8 Procedure and treatment not carried out for other reasons; R31.9 Hematuria, unspecified; Z51.5 Encounter for palliative care; Z66 Do not resuscitate; D64.9 Anemia, unspecified; M19.90 Unspecified osteoarthritis, unspecified site; F41.9 Anxiety disorder, unspecified; Z23 Encounter for immunization; Z74.01 Bed confinement status; Z91.14 Patient's other noncompliance with medication regimen; Z91.81 History of falling; Z96.642 Presence of left artificial hip joint; Z79.02 Long term (current) use of antithrombotics/antiplatelets; Z79.82 Long term (current) use of aspirin; Z79.899 Other long term (current) drug therapy; Z90.49 Acquired absence of other specified parts of digestive tract

== ENCOUNTER 2018-01-23 13:53 | Inpatient (IN) | payer OTHER ==
[2018-01-23 14:01] VITALS: BMI 26.6
[2018-01-23] MEDS ORDERED: Morphine 100 MG in Sodium Chloride 0.9% 100 ML IV SCH (14:15)
[2018-01-24 08:31] VITALS: BP 69/42; PULSE 51; RESP 28; TEMP 101.8; O2SAT 99
--- NOTE | 2018-01-24 12:59 | CP.PCM.PRO ---
Pronouncement of Note - Clinical Findings Physical Exam: No Response Verbal/Painful Stimuli, Absent Peripheral Pulses{ Carotid & Femoral}, Absent Heart & Breath Sounds, No Pupillary Light Reflex, Pupils Fixed & Dilated, Absence of Vital Signs - Pronouncement Time Time of Pronouncement of : 11:51 - Notifications Pronouncement Notifications: Family Notified, Atending Notified Photographic Specialist Notified: No - Autopsy Autopsy Requested: No - [place] [id number]
== END 2018-01-24 14:21 | DRG 66 ==
LOC: H.ICU/CCU 14:01 → H.MEDSURG1 16:40
PROVIDERS: ADMIT Internal Medicine; ATTEND Internal Medicine
DX: I63.9 Cerebral infarction, unspecified (principal)